=== PATIENT | female | born 1945 | race Caucasian/White ===

== ENCOUNTER → 2016-11-28 | Outpatient (CLI) | payer OTHER ==
[2016-11-28 12:16] LABS: BASO % 0.6 %; BASO ABS # 0.03 K/uL (0-0.2); COMPLETE YES; EOS % 3.5 %; HEMATOCRIT 38.8 % (37-47); IG% 0.2 %; LYMPH % 37.9 %; LYMPH ABS # 1.94 K/uL (1.2-3.4); MEAN CELL VOLUME 91.3 fL (80-100); MEAN CORPUSCULAR HGB CONC 35.1 g/dl (32-36); MEAN PLATELET VOLUME 11.1 fL (7.4-10.4); MONO % 4.9 %; NEUT % 52.9 %; PLATELET COUNT 116 K/uL (130-400); RED BLOOD COUNT 4.25 M/uL (4.2-5.4); WHITE BLOOD COUNT 5.12 K/uL (4.8-10.8)
[2016-11-28 12:26] LABS: ALT/SGPT 27 U/L (12-78); BLOOD UREA NITROGEN 10 mg/dl (7-18); BUN/CREATININE RATIO 14.2 (10-20); CALCIUM 8.2 mg/dl (8.5-10.1); CARBON DIOXIDE 27 mmol/L (21-32); CHLORIDE 106 mmol/L (98-107); CHOLESTEROL 181 mg/dl (0-200); CREATININE 0.73 mg/dl (0.60-1.20); GLUCOSE 208 mg/dl (70-99); POTASSIUM 3.8 mmol/L (3.5-5.1); SODIUM 141 mmol/L (136-145); TRIGLYCERIDES 170 mg/dl (0-150); VERY LOW DENSITY LIPOPROT CALC 34 mg/dl
[2016-11-28 12:35] LABS: ALB/GLOB RATIO 0.9 (0.9-2); ALKALINE PHOSPHATASE 88 U/L (45-117); AST/SGOT 24 U/L (15-37); CHOLESTEROL/HDL RATIO 4.2; FERRITIN 107.8 ng/ml (8.0-388.0); HDL CHOLESTEROL 43 mg/dl; LDL CHOLESTEROL CALCULATED 104 mg/dl
[2016-11-28 12:36] LABS: ESTIMATED AVERAGE GLUCOSE 212 mg/dl; HA1C FLAG Normal (Normal)
== END | disposition home or self-care (01) ==
LOC: C.LABPBG 10:11
PROVIDERS: ATTEND Family Medicine
DX: E03.9 Hypothyroidism, unspecified (principal); E11.9 Type 2 diabetes mellitus without complications; R53.83 Other fatigue; I10 Essential (primary) hypertension; E78.5 Hyperlipidemia, unspecified; R55 Syncope and collapse

== ENCOUNTER → 2017-04-01 | Outpatient (CLI) | payer OTHER ==
[2017-04-01 13:02] LABS: BLOOD UREA NITROGEN 11 mg/dl (7-18); BUN/CREATININE RATIO 12.7 (10-20); CALCIUM 8.9 mg/dl (8.5-10.1); CARBON DIOXIDE 28 mmol/L (21-32); CHLORIDE 104 mmol/L (98-107); CREATININE 0.85 mg/dl (0.60-1.20); GLUCOSE 240 mg/dl (70-99); POTASSIUM 3.8 mmol/L (3.5-5.1); SODIUM 140 mmol/L (136-145)
[2017-04-01 13:06] LABS: ALT/SGPT 36 U/L (12-78); CHOLESTEROL 121 mg/dl (0-200); CHOLESTEROL/HDL RATIO 2.4; HDL CHOLESTEROL 50 mg/dl; LDL CHOLESTEROL CALCULATED 50 mg/dl; TRIGLYCERIDES 107 mg/dl (0-150); VERY LOW DENSITY LIPOPROT CALC 21 mg/dl
[2017-04-01 13:32] LABS: RATIO 53.4 mcg/mg (0-30.0)
[2017-04-01 13:36] LABS: ESTIMATED AVERAGE GLUCOSE 214 mg/dl; HA1C FLAG Normal (Normal)
== END | disposition home or self-care (01) ==
LOC: C.LABPBG 08:37
PROVIDERS: ATTEND Family Medicine
DX: E11.9 Type 2 diabetes mellitus without complications (principal)

== ENCOUNTER → 2017-07-06 | Outpatient (CLI) | payer OTHER ==
[2017-07-06 12:35] LABS: ESTIMATED AVERAGE GLUCOSE 151 mg/dl; HA1C FLAG Normal (Normal)
[2017-07-06 12:52] LABS: ALT/SGPT 46 U/L (12-78); AST/SGOT 41 U/L (15-37); BLOOD UREA NITROGEN 17 mg/dl (7-18); BUN/CREATININE RATIO 24.1 (10-20); CALCIUM 8.7 mg/dl (8.5-10.1); CARBON DIOXIDE 26 mmol/L (21-32); CHLORIDE 107 mmol/L (98-107); CHOLESTEROL 123 mg/dl (0-200); CREATININE 0.71 mg/dl (0.60-1.20); GLUCOSE 116 mg/dl (70-99); POTASSIUM 3.8 mmol/L (3.5-5.1); SODIUM 142 mmol/L (136-145)
[2017-07-06 13:02] LABS: ALB/GLOB RATIO 0.9 (0.9-2); ALKALINE PHOSPHATASE 89 U/L (45-117); CHOLESTEROL/HDL RATIO 2.4; HDL CHOLESTEROL 52 mg/dl; LDL CHOLESTEROL CALCULATED 47 mg/dl; TRIGLYCERIDES 119 mg/dl (0-150); VERY LOW DENSITY LIPOPROT CALC 24 mg/dl
== END | disposition home or self-care (01) ==
LOC: C.LABPBG 08:36
PROVIDERS: ATTEND Family Medicine
DX: E11.9 Type 2 diabetes mellitus without complications (principal); E03.9 Hypothyroidism, unspecified

== ENCOUNTER → 2017-07-13 | Outpatient (CLI) | payer OTHER ==
[2017-07-13 13:32] LABS: MEAN CORPUSCULAR HGB CONC 33.6 g/dl (32-36)
[2017-07-13 13:33] LABS: HEMATOCRIT 39.3 % (37-47); MEAN CELL VOLUME 94.2 fL (80-100); MEAN CORPUSCULAR HEMOGLOBIN 31.7 pg (25-34); RED BLOOD COUNT 4.17 M/uL (4.2-5.4)
[2017-07-13 13:38] LABS: BASO % 0.6 %; BASO ABS # 0.04 K/uL (0-0.2); COMPLETE YES; EOS % 2.2 %; IG% 0.2 %; LYMPH % 31.4 %; LYMPH ABS # 2.01 K/uL (1.2-3.4); MEAN PLATELET VOLUME 12.2 fL (7.4-10.4); MONO % 5.3 %; NEUT % 60.3 %; PLATELET COUNT 112 K/uL (130-400); PLT ESTIMATE DECREASED
== END | disposition home or self-care (01) ==
LOC: C.LABPBG 09:35
PROVIDERS: ATTEND Family Medicine
DX: R53.83 Other fatigue (principal)

== ENCOUNTER → 2017-08-17 | Outpatient (CLI) | payer OTHER ==
[2017-08-17 18:07] LABS: HEMATOCRIT 38.7 % (37-47); MEAN CELL VOLUME 94.2 fL (80-100); MEAN CORPUSCULAR HEMOGLOBIN 32.1 pg (25-34); MEAN CORPUSCULAR HGB CONC 34.1 g/dl (32-36); PLATELET COUNT 119 K/uL (130-400); RED BLOOD COUNT 4.11 M/uL (4.2-5.4); WHITE BLOOD COUNT 6.29 K/uL (4.8-10.8)
[2017-08-17 18:11] LABS: BASO % 0.5 %; BASO ABS # 0.03 K/uL (0-0.2); COMPLETE YES; EOS % 2.4 %; IG% 0.2 %; LYMPH ABS # 1.95 K/uL (1.2-3.4); MONO % 6.8 %; NEUT % 59.1 %
== END | disposition home or self-care (01) ==
LOC: C.LABPBG 14:00
PROVIDERS: ATTEND Family Medicine
DX: D69.6 Thrombocytopenia, unspecified (principal)

== ENCOUNTER → 2018-01-08 | Outpatient (CLI) | payer OTHER ==
[2018-01-08 13:11] LABS: HEMOGLOBIN A1C 6.3 % (4.5-5.6)
[2018-01-08 13:50] LABS: ALBUMIN 3.6 gm/dl (3.4-5.0); ALT/SGPT 31 U/L (12-78); AST/SGOT 33 U/L (15-37); BLOOD UREA NITROGEN 16 mg/dl (7-18); CALCIUM 8.6 mg/dl (8.5-10.1); CARBON DIOXIDE 27 mmol/L (21-32); CHOLESTEROL 102 mg/dl (0-200); GLUCOSE 135 mg/dl (70-99); POTASSIUM 4.2 mmol/L (3.5-5.1); SODIUM 139 mmol/L (136-145)
[2018-01-08 14:00] LABS: ALKALINE PHOSPHATASE 76 U/L (45-117); LDL CHOLESTEROL CALCULATED 34 mg/dl; TOTAL PROTEIN 7.4 gm/dl (6.4-8.2)
== END | disposition home or self-care (01) ==
LOC: C.LABPBG 09:37
PROVIDERS: ATTEND Family Medicine
DX: E11.9 Type 2 diabetes mellitus without complications (principal)

== ENCOUNTER 2021-09-23 05:58 | Inpatient (IN) ==
[2021-09-23] MEDS ORDERED: fentaNYL citrate 100 MCG/2 ML VIAL IV STA (06:26)
[2021-09-23] MEDS ORDERED: SODIUM CHLORIDE 0.9% 1000ML 1,000 ML IV ONE (06:26)
--- NOTE | 2021-09-23 06:30 | Emergency Department Note ---
Impression & Plan Pleural effusion, Right lower lobe pneumonia, Abdominal pain, right upper quadrant, Acute right flank pain ED Provider Note Name: WALTER ORTA Age: 75 Sex: F Arrives Via: Walk-In Informant: Patient ED Provider: Thomas Tinajero MD Chief Complaint: Abdominal pain Impression: As Per impressions above Medical Decision Makin yr old pleasant female with extensive PMH with history of including copd, htn, dlp, dmii, breast CA arrives for acute worsening right sided abdominal pain. Clearly TTP over right flank and RUQ. Mildly decreased breath sounds bilaterall, right worse than left. Initial sats mid 90s on RA and patient given small narcotic with improvement in pain and only slight effect on O2 sats. With initial exam felt CT a/p indicated. THis revealed pleural effusion, thus CTA chest obtained. With loculated effusion and likely lobar infiltrate she was started on empiric abx. Suspect that pain is referred from effusion/infiltrate. No evidence ischemia to explain abdominal pain at this time. No large PE, nor clear evidence of other PE findings nor DVT findings at this time. She is quite comfortable with pain mediations and awake/alert. By exam not significantly fluid overloaded initially thus hydration given as double dye load fro CTs. Hospitalist consulted for further management given findings. Patient and comfortable with plan. Prior Medical Record and Triage/Nursing Notes reviewed by Me Additional history obtained from chart Differentials:Biliary pathology, renal colic, renal infection, diverticulitis, ischemia, aortic pathology, PE, dissection, pneumonia, acs, as well as other pathologies. Vital Signs: reviewed and remarkable for no significant abnormalities Interventions: As below Labs:Reviewed and remarkable for mild wbc elevation Imaging:See Below EKG:Per My Interpretation: Indication RUQ pain: Poor baseline with NSR 90 bpm RBBB, qtc 490. No Ectopy. No Ischemia. No previous for comparison Cardiac/Tele Monitoring: Cardiac Monitoring: An Order was placed for continuous cardiac monitoring. The monitor shows a rate of 90 with a normal sinus rhythm. Consults:Dr Nalini FRY Hosptialist Plan: Disposition:Hospitalization. Condition: Good History of Present Illness:75-year-old female arrives for right abdominal pain. Patient notes 3 days of gradually worsening right abdominal pain. Pain is primarily in the right upper quadrant radiating to her right flank and right lower quadrant. She also notes periodic episodes of right shoulder blade pain and sometimes pain under her right armpit. She notes pain is worse with movement. Nothing seems to make it better. She has taken some Tylenol without improvement. She denies any nausea nor vomiting. Patient denies any fevers, chills, shortness of breath, chest pain, syncope, back pain other than the right flank, urinary symptoms, leg swelling, rashes, bruising, headaches, nausea, vomiting or other symptoms. She denies any falls, trauma, injuries. She has n ever had pain like this before. She notes her gallbladder was previously removed. Patient on no new medications no recent changes to her medications. ROS: See above HPI for pertinent positives & negatives. A total of 10 systems reviewed and were otherwise negative. Past Medical History:Hearing loss, anxiety, asthma, COPD, depression, breast cancer, hyperlipidemia, hypertension Hypothyroid, osteoarthritis, type 2 diabetes Past Surgical History:Breast surgery, cholecystectomy, cataract surgery Family History:See Below Social History:See Below Home Medications:See Below Allergies:Sulfa Vitals:Blood Pressure: 122/56, Pulse 96, RR 18, T 37.0C, O2 92% on RA Physical Exam: GENERAL: Patient is very uncomfortable appearing and in moderate distress. EYES: No scleral icterus, unremarkable pupils. ENT: Mucous membranes moist, no nasal congestion. NECK: No masses appreciated, nomeningismus, trachea is midline. RESPIRATORY: No dyspnea mildly decreased breath sounds bilaterally, right worse than left. no overt wheeze CARDIOVASCULAR: Regular rate and rhythm.No murmurs, rubs, gallops appreciated. GASTROINTESTINAL: RUQ and RLQ TTP with hernia right abdomen appears reducible without bowel sounds in hernia, otherwise vague TTP left abdomen with somewhat hyperactive bowel sounds. BACK: No midline tenderness, Mild right CVA tenderness EXTREMITIES: Normal motion all extremities, no cyanosis, no edema. NEUROLOGIC: Quite hard of hearing. Alert and oriented, no acute motor or sensory deficits, no focal weakness, cranial nerves grossly intact. SKIN: No rash, no jaundice, no diaphoresis. PSYCH: Appropriate GCS: 15 ED Course: Times/Reassessments: Stable, feeling much improved with IV pain meds, agreeable to hospitalization Thomas Tinajero MD Past Med/Surg History Medical History (Updated 09/25/21 @ 09:03 by Thomas Tinajero MD) Anxiety ARDS (adult respiratory distress syndrome) Aspiration pneumonia Asthma COPD (chronic obstructive pulmonary disease) Depression Heartburn History of breast cancer History of stomach ulcers History of stroke Hyperlipidemia Hypothyroidism Osteoarthritis Pleural effusion T2DM (type 2 diabetes mellitus) Thrombocytopenia Vitamin D deficiency Surgical History Hx of breast surgery November 2011 S/P cataract surgery Right eye S/P cholecystectomy Family History Father Cardiac disorder Diabetes Myocardial infarction Hypertension Mother Cardiac disorder Diabetes Myocardial infarction Hypertension Brother Leukemia Hearing loss Hypertension Cancer Sister Hypertension Other Asthma No family history of bleeding disorder Denies family history of Ovarian cancer Prostate cancer Heart disease Breast cancer Colorectal cancer Stroke Social History Smoking Status: Smoker, status unknown packs per day: 0.5; Second Hand Exposure: Yes; Hx Alcohol Use: No Hx Substance Use: No Preferred Language: Kyrgyz Communication Ability: needs aids Visual Impairment: No Limitations Hearing Ability: Hard of Hearing Parks Recreation Director Required: No Beliefs That Will Affect Care: None marital status: Current Living Situation: Spouse current occupational status: retired Feels Safe at Home: Yes Safety Concerns: Feels Safe At This Time Childhood Exposure to Second-Hand Smoke: Yes caffeine: Yes during the past year weight has: remained stable Dental Care, Regularly: No Physical Activity Frequency: Does not Exercise Seatbelt Use: never Sunscreen Use: No (Does not go out in the sun) Assistive Devices: Walker Assistive Devices Comment: patient forgot bilateral hearing aids Allergies Allergies Allergy/AdvReac Type Severity Reaction Status Date / Time Sulfa (Sulfonamide AdvReac swelling Verified 01/08/21 15:14 Antibiotics) bee sting Allergy Hives Uncoded 09/23/21 12:04 Home Meds Home Medications Medication Instructions Recorded Confirmed cholecalciferol (vitamin D3) 0 mg PO DAILY 06/22/19 09/23/21 vitamin B complex 0 mg PO DAILY 06/22/19 09/23/21 Previous Rx's Medication Instructions Recorded albuterol sulfate 90 mcg/actuation See Rx Instructions INHALATION 09/28/20 aerosol inhaler (Ventolin HFA) .COMPLEX PRN #18 g levothyroxine 50 mcg tablet 50 mcg PO DAILY #90 tab 03/07/21 buspirone 15 mg tablet 15 mg PO BID 30 Days #180 tab 03/11/21 fluoxetine 40 mg capsule 40 mg PO DAILY #90 cap 06/04/21 lisinopril 2.5 mg tablet 2.5 mg PO DAILY #90 tab 06/04/21 dapagliflozin 10 mg tablet 10 mg PO DAILY #90 tab 06/05/21 glipizide 10 mg tablet 20 mg PO BID #180 tab 06/28/21 umeclidinium 62.5 mcg/actuation 1 inh INHALATION DAILY #30 ea 08/02/21 blister powder for inhalation (Incruse Ellipta) alprazolam 0.5 mg tablet 0.5 mg PO HS #30 tab 08/29/21 anastrozole 1 mg tablet 1 mg PO DAILY #90 tab 08/29/21 Results & Data (ED) Vital Signs Vital Signs - 24 hr 09/23/21 06:03 Temperature 37.0 C Temperature Source Oral Pulse Rate 96 H Respiratory Rate 18 Respiratory Depth Normal Blood Pressure 122/56 L Blood Pressure Mean 78 Pulse Oximetry 92 Oxygen Delivery Method Room Air Sepsis Recent Fever Within 48 Hours No Sepsis New/Unexplained Change in Mental Status N/A Sepsis Action Taken by Nursing No Action Required Laboratory Data Result diagrams: 09/25/21 05:06 09/25/21 05:06 Lab Results 09/23/21 09/23/21 09/23/21 Range/Units 06:45 06:45 06:55 WBC 16.31 H (4.8-10.8) K/uL RBC 3.86 L (4.2-5.4) M/uL Hgb 12.4 (12.0-16.0) g/dL POC Hgb 11.9 L (12.0-16.0) g/dl Hct 36.6 L (37-47) % POC Hct 35 L (37-47) % MCV 94.8 (80-100) fL MCH 32.1 (25-34) pg MCHC 33.9 (32-36) g/dL RDW Std Deviation 47.6 H (36.4-46.3) fL RDW Coeff of Vishal 13.9 (11.5-14.5) % Plt Count 195 (130-400) K/uL MPV 10.8 H (7.4-10.4) fL Immature Gran % (Auto) 0.4 % Neut % (Auto) 88.1 % Lymph % (Auto) 6.2 % Gulf % (Auto) 5.0 % Eos % (Auto) 0.2 % Baso % (Auto) 0.1 % Neut # (Auto) 14.38 H (1.4-6.5) K/uL Lymph # (Auto) 1.01 L (1.2-3.4) K/uL Gulf # (Auto) 0.82 H (0.11-0.59) K/uL Eos # (Auto) 0.03 (0-0.5) K/uL Baso # (Auto) 0.01 (0-0.2) K/uL Immature Gran # (Auto) 0.06 H (0.00-0.02) K/uL POC Sodium 138 (135-144) mmol/L Sodium 135 L (136-145) mmol/L POC Potassium 3.3 (3.3-5.0) mmol/L Potassium 3.3 L (3.5-5.1) mmol/L POC Chloride 101 (101-112) mmol/L Chloride 100 (98-107) mmol/L Carbon Dioxide 24 (21-32) mmol/L POC Total CO2 25 (24-31) mmol/L Anion Gap 11 (3-11) POC Anion Gap 16.0 (16-25) mmol/L POC BUN 11 (7-18) mg/dl BUN 13 (6-23) mg/dl Creatinine 0.81 (0.6-1.2) mg/dl POC Creatinine 0.7 (0.6-1.3) mg/dl Est Cr Clr Drug Dosing 56.2 ml/min Est GFR ( Amer) 81.2 ml/min Est GFR (Non-Af Amer) 70.1 ml/min BUN/Creatinine Ratio 16.0 (10-20) Glucose 320 H* (70-99(Fasting)) mg/dl POC Glucose (other) 335 H (70-99) mg/dl Calcium 8.0 L (8.5-10.1) mg/dl POC Ioniz Calcium Jan 1.09 L (1.12-1.32) mmol/l Total Bilirubin 1.7 H (0.2-1.0) mg/dl Direct Bilirubin 0.6 H (0-0.2) mg/dl AST 18 (13-39) U/L ALT 13 (7-52) U/L Alkaline Phosphatase 138 H (34-104) U/L Troponin I 0.03 (0-0.04) ng/ml Total Protein 7.2 (6.0-8.3) gm/dl Albumin 2.9 L (3.4-5.0) gm/dl Lipase 11 (11-82) U/L SARS-CoV-2, RNA, NAAT (NEGATIVE) 09/23/21 Range/Units 07:45 WBC (4.8-10.8) K/uL RBC (4.2-5.4) M/uL Hgb (12.0-16.0) g/dL POC Hgb (12.0-16.0) g/dl Hct (37-47) % POC Hct (37-47) % MCV (80-100) fL MCH (25-34) pg MCHC (32-36) g/dL RDW Std Deviation (36.4-46.3) fL RDW Coeff of Vishal (11.5-14.5) % Plt Count (130-400) K/uL MPV (7.4-10.4) fL Immature Gran % (Auto) % Neut % (Auto) % Lymph % (Auto) % Gulf % (Auto) % Eos % (Auto) % Baso % (Auto) % Neut # (Auto) (1.4-6.5) K/uL Lymph # (Auto) (1.2-3.4) K/uL Gulf # (Auto) (0.11-0.59) K/uL Eos # (Auto) (0-0.5) K/uL Baso # (Auto) (0-0.2) K/uL Immature Gran # (Auto) (0.00-0.02) K/uL POC Sodium (135-144) mmol/L Sodium (136-145) mmol/L POC Potassium (3.3-5.0) mmol/L Potassium (3.5-5.1) mmol/L POC Chloride (101-112) mmol/L Chloride (98-107) mmol/L Carbon Dioxide (21-32) mmol/L POC Total CO2 (24-31) mmol/L Anion Gap (3-11) POC Anion Gap (16-25) mmol/L POC BUN (7-18) mg/dl BUN (6-23) mg/dl Creatinine (0.6-1.2) mg/dl POC Creatinine (0.6-1.3) mg/dl Est Cr Clr Drug Dosing ml/min Est GFR ( Amer) ml/min Est GFR (Non-Af Amer) ml/min BUN/Creatinine Ratio (10-20) Glucose (70-99(Fasting)) mg/dl POC Glucose (other) (70-99) mg/dl Calcium (8.5-10.1) mg/dl POC Ioniz Calcium Jan (1.12-1.32) mmol/l Total Bilirubin (0.2-1.0) mg/dl Direct Bilirubin (0-0.2) mg/dl AST (13-39) U/L ALT (7-52) U/L Alkaline Phosphatase (34-104) U/L Troponin I (0-0.04) ng/ml Total Protein (6.0-8.3) gm/dl Albumin (3.4-5.0) gm/dl Lipase (11-82) U/L SARS-CoV-2, RNA, NAAT NEGATIVE (NEGATIVE) Administered Medications Acetaminophen (Acetaminophen 500 Mg Tab) 1,000 mg PO Q6H PRN PRN Reason: pain 1-02/07 Stop: 10/23/21 15:07 Last Admin: 09/24/21 08:03 Dose: 1,000 mg Documented by: [id number] Admin: 09/23/21 17:52 Dose: 1,000 mg Documented by: [id number] Fluoxetine HCl (Fluoxetine Hcl 20 Mg Cap) 40 mg PO DAILY [facility] Stop: 10/23/21 12:29 Last Admin: 09/24/21 07:58 Dose: 40 mg Documented by: [id number] Admin: 09/23/21 12:57 Dose: 40 mg Documented by: [id number] Heparin Sodium (Porcine) (Heparin Sod 5,000 Unit/0.5 Ml Vial) 5,000 units SQ Q12 [facility] Stop: 10/24/21 20:59 Last Admin: 09/24/21 21:36 Dose: Not Given Documented by: [id number] Piperacillin Sod/Tazobactam (Sod 3.375 gm/ Dextrose) 115 mls @ 28.75 mls/hr IV Q8H [facility]; Protocol Stop: 09/30/21 12:59 Last Admin: 09/25/21 04:58 Dose: 28.8 mls/hr Documented by: [id number] Infusion: 09/25/21 02:52 Dose: 0 mls/hr Documented by: [id number] Admin: 09/24/21 22:46 Dose: 28.8 mls/hr Documented by: [id number] Infusion: 09/24/21 17:40 Dose: 0 mls/hr Documented by: [id number] Admin: 09/24/21 13:14 Dose: 28.8 mls/hr Documented by: [id number] Infusion: 09/24/21 10:52 Dose: 0 mls/hr Documented by: [id number] Admin: 09/24/21 06:52 Dose: 28.8 mls/hr Documented by: [id number] Infusion: 09/24/21 01:42 Dose: 0 mls/hr Documented by: [id number] Admin: 09/23/21 21:18 Dose: 28.8 mls/hr Documented by: [id number] Infusion: 09/23/21 18:07 Dose: 0 mls/hr Documented by: [id number] Admin: 09/23/21 13:57 Dose: 28.8 mls/hr Documented by: [id number] Propofol (Diprivan) 1,000 mg in 100 mls @ 18.72 mls/hr IV .Q5H21M [facility]; Protocol Stop: 09/27/21 19:29 Last Titration: 09/25/21 07:56 Dose: 40 mcg/kg/min, 18.7 mls/hr Documented by: [id number] Titration: 09/25/21 07:07 Dose: 30 mcg/kg/min, 14 mls/hr Documented by: [id number] Cosigned by: [id number] Titration: 09/25/21 05:54 Dose: 30 mcg/kg/min, 14 mls/hr Documented by: [id number] Admin: 09/25/21 02:16 Dose: 20 mcg/kg/min, 9.4 mls/hr Documented by: [id number] Cosigned by: [id number] Titration: 09/25/21 02:16 Dose: 20 mcg/kg/min, 9.4 mls/hr Documented by: [id number] Cosigned by: [id number] Admin: 09/24/21 21:36 Dose: 20 mcg/kg/min, 9.4 mls/hr Documented by: [id number] Cosigned by: [id number] Norepinephrine Bitartrate (Levophed/D5w) 8 mg in 508 mls @ 0 mls/hr IV .Q0M [facility]; Protocol Stop: 10/24/21 23:29 Last Titration: 09/25/21 07:45 Dose: 0 mcg/kg/min, 0 mls/hr Documented by: [id number] Titration: 09/25/21 07:07 Dose: 0.05 mcg/kg/min, 14.9 mls/hr Documented by: [id number] Cosigned by: [id number] Titration: 09/25/21 06:42 Dose: 0.05 mcg/kg/min, 14.9 mls/hr Documented by: [id number] Titration: 09/25/21 05:54 Dose: 0.04 mcg/kg/min, 11.9 mls/hr Documented by: [id number] Titration: 09/25/21 02:53 Dose: 0.03 mcg/kg/min, 8.9 mls/hr Documented by: [id number] Titration: 09/25/21 02:30 Dose: 0.04 mcg/kg/min, 11.9 mls/hr Documented by: [id number] Admin: 09/24/21 23:38 Dose: 0.05 mcg/kg/min, 14.9 mls/hr Documented by: [id number] Cosigned by: [id number] Parenteral Electrolytes (Normosol-R) 1,000 mls @ 100 mls/hr IV .Q10H [facility] Stop: 10/25/21 00:59 Last Admin: 09/25/21 01:43 Dose: 100 mls/hr Documented by: [id number] Insulin Human Regular 250 (units/ Sodium Chloride) 250 mls @ 4.9 mls/hr IV .Q24H [facility]; Protocol Stop: 10/25/21 06:14 Last Titration: 09/25/21 08:55 Dose: 4.9 units/hr, 4.9 mls/hr Documented by: [id number] Cosigned by: [id number] Titration: 09/25/21 07:56 Dose: 4.1 units/hr, 4.1 mls/hr Documented by: [id number] Cosigned by: [id number] Titration: 09/25/21 07:07 Dose: 2.9 units/hr, 2.9 mls/hr Documented by: [id number] Cosigned by: [id number] Admin: 09/25/21 06:24 Dose: 2.9 units/hr, 2.9 mls/hr Documented by: [id number] Cosigned by: [id number] Insulin Aspart (Insulin Aspart Per Unit) 0 units SC ACHS [facility] Stop: 10/25/21 07:29 Last Admin: 09/25/21 08:05 Dose: Not Given Documented by: [id number] Levothyroxine Sodium (Levothyroxine Sodium 50 Mcg Tablet) 50 mcg PO DAILYBB [facility] Stop: 10/23/21 12:29 Last Admin: 09/25/21 04:58 Dose: Not Given Documented by: [id number] Admin: 09/24/21 07:57 Dose: 50 mcg Documented by: [id number] Admin: 09/23/21 12:57 Dose: 50 mcg Documented by: [id number] Lidocaine (Lidocaine 5% 1 Patch) 1 patch TD [facility] Stop: 10/24/21 18:55 Last Admin: 09/24/21 21:35 Dose: 1 patch Documented by: [id number] Miscellaneous (Remove Nicoderm Patch) 1 ea N/A DAILY@0859 [facility] Stop: 10/23/21 08:58 Last Admin: 09/24/21 08:00 Dose: 1 ea Documented by: [id number] Admin: 09/23/21 12:41 Dose: 1 ea Documented by: [id number] Morphine Sulfate (Morphine Sulfate 2 Mg/Ml Carp) 2 mg IV Q4 PRN PRN Reason: Pain Scale: 2,3,4,5,6 Stop: 10/07/21 15:07 Last Admin: 09/24/21 12:27 Dose: 2 mg Documented by: [id number] Morphine Sulfate (Morphine Sulfate 4 Mg/Ml 1 Ml Carp\Vial) 4 mg IV Q4 PRN PRN Reason: Pain Scale 7,8,9,10 Stop: 10/07/21 15:07 Last Admin: 09/24/21 05:25 Dose: 4 mg Documented by: [id number] Admin: 09/23/21 15:27 Dose: 4 mg Documented by: [id number] Nicotine (Nicotine 14 Mg/24 Hr Patch) 14 mg TD [facility] Stop: 10/23/21 08:59 Last Admin: 09/24/21 07:59 Dose: 14 mg Documented by: [id number] Admin: 09/23/21 12:41 Dose: 14 mg Documented by: [id number] Oxycodone HCl (Oxycodone Hcl Ir 5 Mg Tab (Immediate Release)) 10 mg PO Q6H PRN PRN Reason: Moderate Pain 4-6/10 Stop: 10/07/21 15:07 Last Admin: 09/24/21 10:18 Dose: 10 mg Documented by: [id number] Admin: 09/24/21 04:04 Dose: 10 mg Documented by: [id number] Admin: 09/23/21 21:25 Dose: 10 mg Documented by: [id number] Potassium Chloride (Potassium Chloride Crtab 20 Meq Tabcr) 20 meq PO BID [facility] Stop: 09/25/21 09:01 Last Admin: 09/25/21 08:41 Dose: Not Given Documented by: [id number] Admin: 09/24/21 23:01 Dose: Not Given Documented by: [id number] Admin: 09/24/21 08:03 Dose: 20 meq Documented by: [id number] Propofol (Propofol Bolus From Bag) 20 mg IV Q5M PRN PRN Reason: Sedation Stop: 09/27/21 19:29 Last Admin: 09/25/21 07:58 Dose: 20 mg Documented by: [id number] Cosigned by: [id number] Umeclidinium [place] (Umeclidinium [place] 62.5mcg/Blister 7 Puffs/Inhaler) 1 puffs INH DAILY [facility] Stop: 10/23/21 12:29 Last Admin: 09/24/21 07:58 Dose: 1 puffs Documented by: [id number] Admin: 09/23/21 12:57 Dose: 1 puffs Documented by: [id number] Discontinued Medications Albuterol (Albut/Ipratrop 3mg/0.5mg Neb 3 Ml Vial) 3 ml NEB NOW STA; Protocol Stop: 09/24/21 12:32 Last Admin: 09/24/21 14:31 Dose: 3 ml Documented by: [id number] Albuterol (Albut/Ipratrop 3mg/0.5mg Neb 3 Ml Vial) 3 ml NEB QIDR [facility]; Protocol Stop: 10/24/21 18:55 Last Admin: 09/25/21 04:53 Dose: Not Given Documented by: [id number] Admin: 09/24/21 20:48 Dose: Not Given Documented by: [id number] Alprazolam (Alprazolam 0.5 Mg Tablet) 0.5 mg PO HS [facility] Stop: 10/23/21 20:59 Last Admin: 09/23/21 21:15 Dose: 0.5 mg Documented by: [id number] Anastrozole (Anastrozole 1 Mg Tab) 1 mg PO DAILY [facility] Stop: 10/23/21 12:14 Last Admin: 09/24/21 07:58 Dose: 1 mg Documented by: [id number] Cosigned by: [id number] Admin: 09/23/21 12:57 Dose: 1 mg Documented by: [id number] Cosigned by: [id number] Buspirone HCl (Buspirone 15 Mg Tab) 15 mg PO BID [facility] Stop: 10/23/21 12:14 Last Admin: 09/24/21 07:58 Dose: 15 mg Documented by: [id number] Admin: 09/23/21 23:09 Dose: 15 mg Documented by: [id number] Admin: 09/23/21 12:57 Dose: 15 mg Documented by: [id number] Fentanyl Citrate (Fentanyl Citrate 100 Mcg/2 Ml Vial) 50 mcg IV NOW STA Stop: 09/23/21 06:27 Last Admin: 09/23/21 06:46 Dose: 50 mcg Documented by: [id number] Furosemide (Furosemide 40 Mg/4 Ml Vial) 40 mg IV ONE ONE Stop: 09/24/21 12:56 Last Admin: 09/24/21 13:13 Dose: 40 mg Documented by: [id number] Hydromorphone HCl (Hydromorphone Inj 0.5 Mg/0.5 Ml Syr) 0.5 mg IV NOW STA Stop: 09/23/21 07:23 Last Admin: 09/23/21 07:29 Dose: 0.5 mg Documented by: [id number] Sodium Chloride (Nss 1000ml) 1,000 mls @ 999 mls/hr IV .Q1H1M ONE Stop: 09/23/21 07:26 Last Infusion: 09/23/21 07:52 Dose: 0 mls/hr Documented by: [id number] Admin: 09/23/21 06:47 Dose: 999 mls/hr Documented by: [id number] Sodium Chloride (Nss 1000ml) 1,000 mls @ 125 mls/hr IV .Q8H [facility] Stop: 10/23/21 07:29 Last Infusion: 09/24/21 13:16 Dose: 0 mls/hr Documented by: [id number] Admin: 09/24/21 10:19 Dose: 125 mls/hr Documented by: [id number] Infusion: 09/24/21 10:19 Dose: 125 mls/hr Documented by: [id number] Admin: 09/24/21 02:45 Dose: 125 mls/hr Documented by: [id number] Infusion: 09/23/21 22:32 Dose: 125 mls/hr Documented by: [id number] Admin: 09/23/21 14:32 Dose: 125 mls/hr Documented by: [id number] Infusion: 09/23/21 14:32 Dose: 125 mls/hr Documented by: [id number] Admin: 09/23/21 07:52 Dose: 125 mls/hr Documented by: [id number] Piperacillin Sod/Tazobactam Sod (Zosyn) 4.5 gm in 120 mls @ 240 mls/hr IV NOW ONE Stop: 09/23/21 08:15 Last Infusion: 09/23/21 09:10 Dose: 0 mls/hr Documented by: [id number] Admin: 09/23/21 08:24 Dose: 240 mls/hr Documented by: [id number] Magnesium Sulfate/Dextrose (Magnesium Sulfate / D5w) 1 gm in 100 mls @ 50 mls/hr IV ONE ONE Stop: 09/24/21 09:59 Last Infusion: 09/24/21 10:43 Dose: 0 mls/hr Documented by: [id number] Infusion: 09/24/21 09:04 Dose: 50 mls/hr Documented by: [id number] Infusion: 09/24/21 08:25 Dose: 0 mls/hr Documented by: [id number] Admin: 09/24/21 08:00 Dose: 50 mls/hr Documented by: [id number] Potassium Chloride (K Robert / Wtr) 20 meq in 100 mls @ 50 mls/hr IV Q2H [facility]; Protocol Stop: 09/25/21 04:14 Last Infusion: 09/25/21 04:20 Dose: 0 mls/hr Documented by: [id number] Admin: 09/25/21 02:16 Dose: 50 mls/hr Documented by: [id number] Infusion: 09/25/21 02:16 Dose: 50 mls/hr Documented by: [id number] Admin: 09/25/21 00:18 Dose: 50 mls/hr Documented by: [id number] Infusion: 09/25/21 00:18 Dose: 50 mls/hr Documented by: [id number] Admin: 09/24/21 23:02 Dose: 50 mls/hr Documented by: [id number] Insulin Aspart (Insulin Aspart Per Unit) 0 units SC ACHS [facility] Stop: 10/23/21 11:29 Last Admin: 09/24/21 23:08 Dose: 7 units Documented by: [id number] Cosigned by: [id number] Admin: 09/24/21 17:47 Dose: 5 units Documented by: [id number] Cosigned by: [id number] Admin: 09/24/21 12:30 Dose: 7 units Documented by: [id number] Cosigned by: [id number] Admin: 09/24/21 08:07 Dose: 5 units Documented by: [id number] Cosigned by: [id number] Admin: 09/23/21 21:18 Dose: 7 units Documented by: [id number] Cosigned by: [id number] Admin: 09/23/21 18:15 Dose: Not Given Documented by: [id number] Admin: 09/23/21 14:03 Dose: 11 units Documented by: [id number] Cosigned by: [id number] Insulin Human Regular (Novolin-R Bolus From Bag) 3 units IV ONE ONE Stop: 09/25/21 06:16 Last Admin: 09/25/21 06:25 Dose: 3 units Documented by: [id number] Cosigned by: [id number] Ioversol (Optiray 320 100ml) 94 ml IV ONCE ONE Stop: 09/23/21 07:14 Last Admin: 09/23/21 07:14 Dose: 94 ml Documented by: [id number] Ioversol (Optiray 320 125ml) 106 ml IV ONCE ONE Stop: 09/23/21 07:39 Last Admin: 09/23/21 07:38 Dose: 106 ml Documented by: [id number] Miscellaneous (Dapagliflozin 10mg-Order Awaiting Action) 1 ea N/A QS [facility] Stop: 10/23/21 15:59 Last Admin: 09/24/21 16:19 Dose: Not Given Documented by: [id number] Admin: 09/24/21 08:00 Dose: Not Given Documented by: [id number] Admin: 09/24/21 00:55 Dose: Not Given Documented by: [id number] Admin: 09/23/21 17:52 Dose: Not Given Documented by: [id number] Propofol (Propofol Iv Emulsion 10 Mg/Ml 100 Ml Vial) Confirm Administered Dose 1,000 mg IV .[employer] ONE Stop: 09/24/21 19:32 Last Admin: 09/24/21 21:36 Dose: Not Given Documented by: [id number] Rosuvastatin Calcium (Rosuvastatin Calcium 10 Mg Tab) 10 mg PO DAILY [facility] Stop: 10/23/21 12:29 Last Admin: 09/24/21 07:58 Dose: 10 mg Documented by: [id number] Admin: 09/23/21 12:57 Dose: 10 mg Documented by: [id number] Vecuronium [place] (Vecuronium [place] 10 Mg Vial) Confirm Administered Dose 10 mg IV .[employer] ONE Stop: 09/24/21 20:54 Last Admin: 09/24/21 21:37 Dose: 10 mg Documented by: [id number] Cosigned by: [id number] Discharge Plan Visit Data Chief Complaint: Flank Pain Stated Complaint: PAIN UP RIGHT SIDE UNDER ARM ED Provider: Thomas Tinajero Discharge Problem: Pleural effusion, Right lower lobe pneumonia, Abdominal pain, right upper quadrant, Acute right flank pain Patient Disposition: Admitted As Inpatient Discharge Instructions Interventions: ED Discharge Assessment Last Done: 09/23/21 11:41 Discharge Problem: Right lower lobe pneumonia Qualifiers: Pneumonia type: due to unspecified organism Qualified Code(s): J18.9 - Pneumonia, unspecified organism
[2021-09-23 07:07] LABS: Basophils # (auto) 0.01 K/uL (0-0.2); Basophils % (auto) 0.1 %; Eosinophils # (auto) 0.03 K/uL (0-0.5); Eosinophils % (auto) 0.2 %; Hematocrit (blood only) 36.6 % (37-47); Hemoglobin 12.4 g/dL (12.0-16.0); Immature Granulocytes # (auto) 0.06 K/uL (0.00-0.02); Immature Granulocytes % (auto) 0.4 %; Lymphocytes # (auto) 1.01 K/uL (1.2-3.4); Lymphocytes % (auto) 6.2 %; Mean Corpuscular Hemoglobin 32.1 pg (25-34); Mean Corpuscular Hgb Conc 33.9 g/dL (32-36); Mean Corpuscular Volume 94.8 fL (80-100); Mean Platelet Volume 10.8 fL (7.4-10.4); Monocytes # (auto) 0.82 K/uL (0.11-0.59); Neutrophils # (auto) 14.38 K/uL (1.4-6.5); Neutrophils % (auto) 88.1 %; Platelet Count 195 K/uL (130-400); RDW Coefficient of Variation 13.9 % (11.5-14.5); RDW Standard Deviation 47.6 fL (36.4-46.3); Red Blood Count 3.86 M/uL (4.2-5.4); White Blood Count 16.31 K/uL (4.8-10.8)
[2021-09-23 07:09] LABS: iSTAT Creatinine 0.7 mg/dl (0.6-1.3); iSTAT Hemoglobin 11.9 g/dl (12.0-16.0); iSTAT Ionized Calcium 1.09 mmol/l (1.12-1.32); iSTAT Potassium 3.3 mmol/L (3.3-5.0)
[2021-09-23] MEDS ORDERED: OPTIRAY 320 100ml IV ONE (07:13)
[2021-09-23] MEDS ORDERED: HYDROmorphone INJ 0.5 MG/0.5 ML SYR IV STA (07:22)
[2021-09-23] MEDS ORDERED: OPTIRAY 320 125ml IV ONE (07:38)
[2021-09-23] MEDS ORDERED: PIPERACILLIN/TAZOBACTAM 4.5 GM/120 ML BAG IV ONE (07:46)
[2021-09-23] MEDS ORDERED: PIPERACILL/TAZOBAC CONSULT ACTIVE PRN (07:46)
--- NOTE | 2021-09-23 07:47 | CT Scan Report ---
ABDOMEN AND PELVIS CT WITH IV CONTRAST CT DOSE: 757.45 mGy.cm HISTORY: Acute right flank and right upper quadrant abdominal pain Right flank pain RUQ pain TECHNIQUE: Multiaxial CT images of the abdomen and pelvis were performed following the IV administrat ion of 94 cc of Optiray, A dose lowering technique was utilized adhering to the principles of ALARA. COMPARISON STUDY: CTA of the chest of same day FINDINGS: Motion degraded exam. Coronary arterial with aortic and mitral annular calcifications. Mild ly loculated partially imaged right pleural effusion with right basilar consolidative and groundglass opacities. The left lung base is generally clear. No pneumatosis or pneumoperitoneum. The spleen is moderately enlarged measuring up to 15.3 cm in length. Trace perisplenic and dependent pelvic ascites. Cirrhotic morphology of the liver. No hepatic mass identified. Patent portal vein. Ab dominal pelvic varices. Cholecystectomy. Unremarkable kidneys. There is no hydronephrosis. Urinary bl adder, uterus and adnexa are within normal limits. Atherosclerosis of the aorta without aneurysm. Mil d infrarenal ectasia aorta measures 2.2 cm. There is no adenopathy. There is no bowel obstruction. There are a few fluid-filled loops of small bowel within the abdomen a nd pelvis measuring up to 2.7 cm which are favored to be physiologic. Colonic diverticulosis without acute diverticulitis. There is mild circumferential wall thickening of the mid descending colon. Trac e fluid within the right paracolic gutter. There are large fat filled hernias involving the right mid abdominal wall with diastases measuring up to 5 cm. Mild associated inflammatory stranding. Degenera tive changes of the spine, pelvis and hips. No acute fracture or suspicious bone lesion. IMPRESSION: 1. Cirrhotic liver disease with stigmata of portal venous hypertension including splenomegaly with tr katia abdominal pelvic ascites and abdominal pelvic varices. 2. Mild wall thickening of the descending colon with trace fluid within the right paracolic gutter. F indings may be secondary to portal colopathy versus a nonspecific colitis. 3. Large right-sided abdominal wall fat filled hernias. 4. Right pleural effusion with right basilar consolidation. Please refer to the CTA chest study of for additional findings. ACT 112: Negative or not required by law. The above report was generated using voice recognition software. It may contain grammatical, syntax o r spelling errors. Electronically signed by: Carlos Lacey M.D. 09/23/2021 7:46 AM
[2021-09-23] MEDS: SODIUM CHLORIDE 0.9% 1000ML 1,000 ML IV SCH ×2 (07:52→14:32)
--- NOTE | 2021-09-23 07:58 | CT Scan Report ---
CT ANGIOGRAM OF THE CHEST CLINICAL HISTORY: Atypical chest pain. COMPARISON STUDY: No priors. TECHNIQUE: Following the IV administration of 106 cc of Optiray 320, CT angiogram of the chest was pe rformed from the upper abdomen to the thoracic inlet utilizing the pulmonary embolus protocol. Images are reviewed in the axial, sagittal, and coronal planes. 3-D MIPS images are created and assessed. I V contrast was administered without complication. A dose lowering technique was utilized adhering to the principles of ALARA. The examination is degraded by motion artifact, as well as streak artifact from the arms which could not be elevated above the chest. CT DOSE: 482.66 mGy.cm FINDINGS: Thyroid: Imaged portions of the thyroid gland are normal in size and attenuation. Thoracic aorta: There is atherosclerotic calcification of the thoracic aorta, which is normal in carlita shahla and demonstrates standard 3-vessel arch anatomy. No dissection is seen. Pulmonary vasculature: The pulmonary trunk is dilated, measuring 3.4 cm in diameter. This suggests pu lmonary artery hypertension. There are no filling defects identified in main or lobar pulmonary branc hes to suggest pulmonary embolus. The segmental and subsegmental branches are not well evaluated due to significant streak and motion artifact. Heart: The heart is enlarged and without pericardial effusion. The mitral annulus and aortic valve le aflets are calcified. Lungs and pleural spaces: Evaluation of the lung parenchyma is compromised by motion artifact. The tr achea and central airways are clear. Emphysematous change is noted. There is a small to moderate locu lated pleural effusion at the right lung base, with fluid tracking along the major fissure. There is associated right basilar airspace consolidation. The left lung appears clear noting basilar scarring/ atelectasis. Mediastinum: There are mildly enlarged mediastinal nodes which measure up to 15 mm in short axis. Rachel: Enlarged right hilar nodes measure up to 14 mm in short axis. Axillae: There is no axillary lymphadenopathy. Upper abdomen: The liver is cirrhotic in morphology and heterogeneous in attenuation. The spleen is e nlarged. A small hiatal hernia is noted. Esophageal varices are observed. There is trace perisplenic ascites. Skeletal structures: The skeletal structures are osteopenic. Degenerative change and hyperkyphosis is noted in the thoracic spine. No lytic or blastic bony lesions are seen. IMPRESSION: 1. Severely streak and motion compromised examination. 2. There is no evidence of central pulmonary embolus in the main or lobar pulmonary arteries. The seg mental and subsegmental vessels are not well evaluated due to streak and motion artifact. 3. Cardiomegaly and emphysema. 4. There is a small to moderate loculated pleural effusion at the right lung base as above with right basilar consolidation. Correlate clinically for evidence of pneumonia/aspiration pneumonitis. Radiog raphic follow-up to resolution is recommended. 5. Mildly enlarged mediastinal and right hilar nodes are likely reactive. 6. Cirrhotic liver morphology and splenomegaly. 7. Additional findings as above. ACT 112: Negative or not required by law. Electronically signed by: Federico Ruiz M.D. 09/23/2021 7:57 AM
[2021-09-23 08:26] LABS: Albumin Level 2.9 gm/dl (3.4-5.0); Bilirubin Direct 0.6 mg/dl (0-0.2); Bilirubin,Total 1.7 mg/dl (0.2-1.0); Creatinine Clr Calc Pharmacy 56.2 ml/min; Est GFR (African American) 81.2 ml/min; Est GFR (Non-African American) 70.1 ml/min; Potassium 3.3 mmol/L (3.5-5.1); Total Protein 7.2 gm/dl (6.0-8.3); Troponin I 0.03 ng/ml (0-0.04)
[2021-09-23 09:35] LABS: Appearance Urine Clear (Clear); Bilirubin Urine Negative (Negative); Blood Urine Negative (Negative); Color Urine Yellow; Glucose Urine UA 3+ (Negative); Ketones Urine Trace (Negative); Leukocyte Esterase Urine Negative (Negative); Nitrite Urine Negative (Negative); Protein Urine Negative (Negative); Specific Gravity Urine > 1.045 (1.000-1.030); Urobilinogen Urine Negative (Negative)
--- NOTE | 2021-09-23 09:52 | Electrocardiogram Report ---
Test Reason : Blood Pressure : / mmHG Vent. Rate : 090 BPM Atrial Rate : 061 BPM P-R Int : 000 ms QRS Dur : 112 ms QT Int : 400 ms P-R-T Axes : 000 -05 071 degrees QTc Int : 490 ms Poor data quality, interpretation may be adversely affected Normal sinus rhythm Incomplete right bundle branch block Prolonged QT Abnormal ECG No previous ECGs available Confirmed by Sid Mcfarlane ([id number]) on 09/23/2021 9:51:54 AM Referred By: REFERRED SELF Confirmed By:Richard Mcfarlane
[2021-09-23] MEDS ORDERED: GLUCOSE 10 TABS/TUBE PO PRN (11:48)
[2021-09-23] MEDS ORDERED: GLUCOSE 40% GEL 15 GM TUBE PO PRN (11:48)
[2021-09-23] MEDS ORDERED: DEXTROSE 50% 50 ML SYRINGE IV PRN (11:48)
[2021-09-23] MEDS ORDERED: CARBOHYDRATES FOR HYPOGLYCEMIA PO PRN (11:48)
[2021-09-23] MEDS ORDERED: ALBUTEROL HFA 8 GM INHALER INH PRN (11:48)
[2021-09-23] MEDS ORDERED: GLUCAGON FOR INJ 1 MG VIAL SQ PRN (11:48)
[2021-09-23] MEDS: NICOTINE 14 MG/24 HR PATCH TD SCH (12:41)
[2021-09-23] MEDS: busPIRone 15 MG TAB PO SCH ×2 (12:57→23:09)
[2021-09-23] MEDS: FLUoxetine HCL 20 MG CAP PO SCH (12:57)
[2021-09-23] MEDS: UMECLIDINIUM BROMIDE 62.5MCG/BLISTER 7 PUFFS/INHALER INH SCH (12:57)
[2021-09-23] MEDS: LEVOTHYROXINE SODIUM 50 MCG TABLET PO SCH (12:57)
[2021-09-23] MEDS: ANASTROZOLE 1 MG TAB PO SCH (12:57)
[2021-09-23] MEDS: ROSUVASTATIN CALCIUM 10 MG TAB PO SCH (12:57)
[2021-09-23] MEDS: PIPERACILLIN/TAZOBACTAM 3.375 GM in DEXTROSE 5% 100 ML IV SCH ×2 (13:57→21:18)
[2021-09-23] MEDS: INSULIN ASPART PER UNIT SC SCH ×3 (14:03→21:18)
[2021-09-23] MEDS ORDERED: MoRPHine SULFATE 2 MG/ML CARP IV PRN (15:08)
--- NOTE | 2021-09-23 15:19 | History & Physical Report ---
Date of Service September 23, 2021 Assessment & Plan (1) Pneumonia: Plan: Get pneumonia with loculated pleural effusion at the right base consistent possibly with aspiration on your gram-negative pneumonia patient be continued on Zosyn therapy. If the patient does not improve consideration for pulmonary consultation although with the loculations and position of the effusion may be difficult to access for fluid. (2) COPD (chronic obstructive pulmonary disease): Plan: Medically acute exacerbation is at this time not using steroids at this time will continue home inhalers of Umeclidinium (3) Depression: Plan: Continue BuSpar fluoxetine which seems stable (4) History of breast cancer: Plan: History of bilateral mastectomy in 2011 certainly raises concern with this loculated effusion, continue anastrozole (5) Hypothyroidism: Plan: Continue Synthroid therapy (6) T2DM (type 2 diabetes mellitus): Plan: Hold Farxiga glipizide check hemoglobin A1c have insulin sliding scale we will not add glargine unless we need to holding lisinopril at this time (7) DVT prophylaxis: Plan: Lovenox for DVT prevention Admission and Anticipated Discharge Date Admission Date: September 23, 2021 History of Present Illness Primary Care Provider: Jimena Rosales DO 75-year-old female who is extremely hard of hearing presented to the emergency room with right upper quadrant abdominal pain. Poorly 3 days prodromal illness occasionally rating to her shoulder and armpit worse with movement and in spiration denies associated symptoms. Emergency department physician did CT scan abdomen pelvis which showed cirrhotic liver portal vein hypertension trace ascites and splenomegaly. Large right-sided abdominal wall fat filled hernia but concern for right basilar lung issues. CT angiogram was subsequently performed which showed no PE small to moderate loculated pleural effusion in the right lung base with basilar consolidation consideration for aspiration pneumonia Patient was having pleuritic pain with ice entered the room this is relieved with parenteral pain medication she is admitted for antibiotic therapy. Covid test is negative Allergies Allergy/AdvReac Type Severity Reaction Status Date / Time Sulfa (Sulfonamide AdvReac swelling Verified 01/08/21 15:14 Antibiotics) bee sting Allergy Hives Uncoded 09/23/21 12:04 Home Medications Medication Instructions Recorded Confirmed Type cholecalciferol (vitamin D3) 0 mg PO DAILY 06/22/19 09/23/21 History vitamin B complex 0 mg PO DAILY 06/22/19 09/23/21 History albuterol sulfate 90 mcg/actuation See Rx Instructions INHALATION 09/28/20 09/23/21 Rx aerosol inhaler (Ventolin HFA) .COMPLEX PRN #18 g levothyroxine 50 mcg tablet 50 mcg PO DAILY #90 tab 03/07/21 09/23/21 Rx buspirone 15 mg tablet 15 mg PO BID 30 Days #180 tab 03/11/21 09/23/21 Rx fluoxetine 40 mg capsule 40 mg PO DAILY #90 cap 06/04/21 09/23/21 Rx lisinopril 2.5 mg tablet 2.5 mg PO DAILY #90 tab 06/04/21 09/23/21 Rx dapagliflozin 10 mg tablet 10 mg PO DAILY #90 tab 06/05/21 09/23/21 Rx glipizide 10 mg tablet 20 mg PO BID #180 tab 06/28/21 09/23/21 Rx umeclidinium 62.5 mcg/actuation 1 inh INHALATION DAILY #30 ea 08/02/21 09/23/21 Rx blister powder for inhalation (Incruse Ellipta) alprazolam 0.5 mg tablet 0.5 mg PO HS #30 tab 08/29/21 09/23/21 Rx anastrozole 1 mg tablet 1 mg PO DAILY #90 tab 08/29/21 09/23/21 Rx Past Med/Surg History Medical History (Updated 09/23/21 @ 15:25 by Riley Gayle MD) Anxiety Asthma COPD (chronic obstructive pulmonary disease) Depression Heartburn History of breast cancer History of stomach ulcers History of stroke Hyperlipidemia Hypothyroidism Osteoarthritis T2DM (type 2 diabetes mellitus) Thrombocytopenia Vitamin D deficiency Surgical History Hx of breast surgery November 2011 S/P cataract surgery Right eye S/P cholecystectomy Family History Father Cardiac disorder Diabetes Myocardial infarction Hypertension Mother Cardiac disorder Diabetes Myocardial infarction Hypertension Brother Leukemia Hearing loss Hypertension Cancer Sister Hypertension Other Asthma No family history of bleeding disorder Denies family history of Ovarian cancer Prostate cancer Heart disease Breast cancer Colorectal cancer Stroke Social History Smoking Status: Smoker, status unknown packs per day: 0.5; Second Hand Exposure: Yes; Hx Alcohol Use: No Hx Substance Use: No Preferred Language: Bahamian Communication Ability: needs aids Visual Impairment: No Limitations Hearing Ability: Hard of Hearing Rn Intern Required: No Beliefs That Will Affect Care: None marital status: Current Living Situation: Spouse current occupational status: retired Feels Safe at Home: Yes Safety Concerns: Feels Safe At This Time Childhood Exposure to Second-Hand Smoke: Yes caffeine: Yes during the past year weight has: remained stable Dental Care, Regularly: No Physical Activity Frequency: Does not Exercise Seatbelt Use: never Sunscreen Use: No (Does not go out in the sun) Assistive Devices: Hearing Aid - Bilateral Assistive Devices Comment: patient forgot bilateral hearing aids Review of Systems Review of Systems: Mild to Moderate distress and fatigue no headache, no visual changes no speech or swallowing issues pleuritic chest pain, no pressure or palpitations no shortness of breath, non productive cough or wheezes right sided reproducible abdominal pain, nausea or vomiting, diarrhea or constipation no dysuria, hematuria or frequency no focal joint pain or swelling no back pain, CVA tenderness or radicular pain no bruising, bleeding or rashes no focal signs of weakness or numbness or altered sensation except for extreme hard of hearing no complaints of anxiety or depression.. Physical Exam Physical Exam: The patient appeared well nourished and normally developed. Vital signs as documented. Head exam is normocephalic atraumatic Neck is without JVD, thyromegaly, or carotid bruits. Lungs are diminished to the right base Cardiac exam, Rhythm is regular.. No murmurs, rubs or gallops. Abdominal exam reveals normal bowel sounds, soft non hernia that is reproducible Extremities are nonedematous and both pedal pulses are present Neurologic exam is alert and oriented, no focal loss of strength or sensation very hard of hearing Skin is without bruises or rashes Psychologically is without concerns for anxiety or depression.. Results & Data Results & [facility] ([facility]) Vital Signs (Past 12 Hours) Vital Signs Temp Pulse Pulse Resp BP BP Pulse Ox 09/23/21 12:33 84 16 96 09/23/21 12:21 82 16 135/86 96 09/23/21 11:41 107 H 17 100 09/23/21 09:00 90 24 104/41 L 90 09/23/21 07:55 89 20 152/75 H 95 09/23/21 06:45 88 93 09/23/21 06:03 98.6 F 96 H 18 122/56 L 92 Code Status & VTE Plan VTE Prophylaxis Plan VTE Prophylaxis will be ordered: Yes PG Care Time/CCT Total # of Minutes Spent Total Time Spent with Patient: Total time spent is greater than 50% in coordination of care (as documented) at patient's floor/unit and/or counseling patient: Coding Level of Care Code 08858 Initial Inpt Care Lvl 2 Diagnoses COPD (chronic obstructive pulmonary disease) J44.9 Depression F32.9 History of breast cancer Z85.3 Hypothyroidism E03.9 T2DM (type 2 diabetes mellitus) E11.9 Pneumonia J18.9 DVT prophylaxis Z29.9
[2021-09-23] MEDS ORDERED: ONDANSETRON INJ 2 MG/ML 2 ML VIAL IV PRN (15:26)
[2021-09-23] MEDS ORDERED: ALUMINUM/MAGNESIUM SUSP 30 ML UDC PO PRN (15:26)
[2021-09-23] MEDS: MoRPHine SULFATE 4 MG/ML 1 ML CARP\\VIAL IV PRN (15:27)
[2021-09-23] MEDS ORDERED: SODIUM CHLORIDE 0.9% 10ML FLUSH IV ONE (16:57)
[2021-09-23] MEDS: ACETAMINOPHEN 500 MG TAB PO PRN (17:52)
[2021-09-23] MEDS ORDERED: PNEUMOCOCCAL Polysaccharide Vaccine 25mcg/0.5mL vial/Syr IM ONE (20:15)
[2021-09-23] MEDS ORDERED: Flu Vaccine-High Dose (Fluzone-HD) PF 65+ 0.7mL SYR IM ONE (20:15)
[2021-09-23] MEDS ORDERED: ALPRAZolam 0.5 MG TABLET PO SCH (21:00)
[2021-09-23] MEDS: oxyCODONE HCL IR 5 MG TAB (IMMEDIATE RELEASE) PO PRN (21:25)
[2021-09-24] MEDS: SODIUM CHLORIDE 0.9% 1000ML 1,000 ML IV SCH ×2 (02:45→10:19)
[2021-09-24] MEDS: oxyCODONE HCL IR 5 MG TAB (IMMEDIATE RELEASE) PO PRN ×2 (04:04→10:18)
[2021-09-24] MEDS: MoRPHine SULFATE 4 MG/ML 1 ML CARP\\VIAL IV PRN (05:25)
[2021-09-24 06:29] LABS: BUN Creatinine Ratio 29.7 (10-20); Calcium 7.7 mg/dl (8.5-10.1); Creatinine Clr Calc Pharmacy 71.2 ml/min; Est GFR (African American) 99.8 ml/min; Est GFR (Non-African American) 86.1 ml/min; Potassium 3.3 mmol/L (3.5-5.1)
[2021-09-24] MEDS: PIPERACILLIN/TAZOBACTAM 3.375 GM in DEXTROSE 5% 100 ML IV SCH ×3 (06:52→22:46)
[2021-09-24 07:49] LABS: Estimated Average Glucose 232 mg/dl; Hemoglobin A1C 9.7 % (4.5-5.6)
[2021-09-24] MEDS: LEVOTHYROXINE SODIUM 50 MCG TABLET PO SCH (07:57)
[2021-09-24] MEDS: busPIRone 15 MG TAB PO SCH (07:58)
[2021-09-24] MEDS: UMECLIDINIUM BROMIDE 62.5MCG/BLISTER 7 PUFFS/INHALER INH SCH (07:58)
[2021-09-24] MEDS: FLUoxetine HCL 20 MG CAP PO SCH (07:58)
[2021-09-24] MEDS: ANASTROZOLE 1 MG TAB PO SCH (07:58)
[2021-09-24] MEDS: ROSUVASTATIN CALCIUM 10 MG TAB PO SCH (07:58)
[2021-09-24] MEDS: NICOTINE 14 MG/24 HR PATCH TD SCH (07:59)
[2021-09-24] MEDS ORDERED: MAGNESIUM SULFATE / D5W 1 GM/100 ML BAG IV ONE (08:00)
[2021-09-24] MEDS: POTASSIUM CHLORIDE CRTAB 20 MEQ TABCR PO SCH ×2 (08:03→23:01)
[2021-09-24] MEDS: ACETAMINOPHEN 500 MG TAB PO PRN (08:03)
[2021-09-24] MEDS: INSULIN ASPART PER UNIT SC SCH ×4 (08:07→23:08)
[2021-09-24] MEDS ORDERED: ALBUT/IPRATROP 3MG/0.5MG NEB 3 ML VIAL NEB STA (12:31)
--- NOTE | 2021-09-24 12:53 | XRay Report ---
XR chest 1V portable CLINICAL HISTORY: Worsening shortness of breath. COMPARISON STUDY: Chest CT September 23, 2021. FINDINGS: Right axillary surgical clips are noted. There is no pneumothorax. A moderate right pleural effusion, likely loculated, has increased in size since prior exam. Airspace opacities, more pronoun catarina within the right lung, have progressed. Cardiomediastinal silhouette is stable. IMPRESSION: 1. Progression of extensive bilateral airspace opacities, greater within the right lung. The findings favor pneumonia. Pulmonary edema could appear similar although is considered less likely. 2. Increase in size of a moderate right pleural effusion, likely loculated. ACT 112: Negative or not required by law. Electronically signed by: Tremaine See M.D. 09/24/2021 12:51 PM
[2021-09-24] MEDS ORDERED: FUROSEMIDE 40 MG/4 ML VIAL IV ONE (12:55)
[2021-09-24 13:15] LABS: Base Excess ABG -4.7 mEq/L (-9-1.8); HCO3 ABG 22 mmol/L (19-24); Oxygen Saturation ABG 91.1 % (90-95); PCO2 ABG 45 mmHg (35-46); PO2 ABG 60 mmHg (80-95)
[2021-09-24 13:21] LABS: Allen Test Pos (Pos)
--- NOTE | 2021-09-24 17:11 | Hospitalist Progress Note ---
Date of Service September 24, 2021 Assessment & Plan (1) Cardiac arrest: Plan: Poorly patient had a period of asystole. She has been battling with hypoxia all afternoon with attempts at diuresis to improve her oxygenation. BG checked in the afternoon did not show any significant CO2 retention however the exact cause of her having asystole and apnea is yet to be determined. Patient does have a large pleural effusion and complex infiltrate at the right base she is transferred to the ICU with intubation ventilation sedation she does have regained sinus rhythm which is tachycardic and blood pressure. (2) Pneumonia: Plan: Right lower lobe pneumonia with loculated pleural effusion at the right base consistent possibly with aspiration or gram-negative pneumonia patient be continued on Zosyn therapy. If the patient does not improve consideration for pulmonary consultation although with the loculations and position of the effusion may be difficult to access for fluid. (3) Person under investigation for COVID-19: Plan: was notified by nursing staff that pts roommate tested positive for COVID, will have isolation as PUI, will inform (4) Heart failure: Plan: pt developed acute hypoxic respiratory failure, sounds to he heart failure and has 4 L + given lasix and will check Echo, stopped IVF will give additional lasix before night and apply Cpap echocardiogram ordered and pending (5) COPD (chronic obstructive pulmonary disease): Plan: Medically treat acute exacerbation is at this time not using steroids at this time will continue home inhalers of Umeclidinium but add duo nebs to her mix (6) Depression: Plan: Continue BuSpar fluoxetine which seems stable (7) History of breast cancer: Plan: History of bilateral mastectomy in 2011 certainly raises concern with this loculated effusion, continue anastrozole (8) Hypothyroidism: Plan: Continue Synthroid therapy (9) T2DM (type 2 diabetes mellitus): Plan: Hold Farxiga glipizide check hemoglobin A1c have insulin sliding scale we will not add glargine unless we need to holding lisinopril at this time (10) DVT prophylaxis: Plan: Heparin for DVT prevention Patient and her confirms she is a full code prior to admission Admission and Anticipated Discharge Date Admission Date: September 23, 2021 Subjective She had a increasing work of breathing and shortness of breath associate with hypoxemia. She is almost 4 L ahead. Patient has no known history of congestive heart failure however she sounded to be with pulmonary edema subsequently the fluids were held she was given Lasix intravenously and placed Burgos catheter for ins and out measurements. Additionally echocardiogram is now pending however it was relayed to me that the patient's roommate has now tested positive for Covid over the past patient was negative on the admission. Patient had CODE BLUE cardiac arrest around 6:30 PM she was successfully resuscitated but required intubation patient's family was informed Review of Systems Review of Systems: Review of systems was prior to cardiac arrest mild to Moderate distress and fatigue no headache, no visual changes no speech or swallowing issues pleuritic chest pain, no pressure or palpitations no shortness of breath, non productive cough or wheezes right sided reproducible abdominal pain, nausea or vomiting, diarrhea or constipation no dysuria, hematuria or frequency no focal joint pain or swelling no back pain, CVA tenderness or radicular pain no bruising, bleeding or rashes no focal signs of weakness or numbness or altered sensation except for extreme hard of hearing no complaints of anxiety or depression.. Physical Exam Physical Exam: The patient appeared well nourished and normally developed. Vital signs as documented. Head exam is normocephalic atraumatic Neck is with 1 cm JVD, thyromegaly, or carotid bruits. Lungs are diminished to the right base rales are heard throughout the left lung prior to her cardiac arrest Cardiac exam, Rhythm is regular.. No murmurs, rubs or gallops. Abdominal exam reveals normal bowel sounds, soft right-sided hernia that is reproducible Extremities are nonedematous and both pedal pulses are present Neurologic exam is alert and oriented, no focal loss of strength or sensation very hard of hearing Skin is without bruises or rashes Results & Data Results & Data ([facility]) Vital Signs (Past 12 Hours) Vital Signs Temp Pulse Resp BP BP Pulse Ox 09/24/21 15:13 97.5 F L 103 H 18 129/67 88 L 09/24/21 14:33 105 H 20 88 L 09/24/21 14:19 88 L 09/24/21 12:18 89 L 09/24/21 12:00 81 L 09/24/21 10:46 98.2 F 100 H 20 138/67 90 09/24/21 10:43 89 L 09/24/21 07:18 97.7 F 96 H 18 116/61 89 L PG Care Time/CCT Total # of Minutes Spent Total Time Spent with Patient: Total time spent is greater than 50% in coordination of care (as documented) at patient's floor/unit and/or counseling patient: Coding Level of Care Code 72552 Subseq Hosp Care Lvl 3 Diagnoses Pneumonia J18.9 COPD (chronic obstructive pulmonary disease) J44.9 Depression F32.9 History of breast cancer Z85.3 Hypothyroidism E03.9 T2DM (type 2 diabetes mellitus) E11.9 DVT prophylaxis Z29.9 Person under investigation for COVID-19 Z20.822 Heart failure I50.9 Cardiac arrest I46.9
[2021-09-24] MEDS ORDERED: LIDOCAINE 5% 1 PATCH TD SCH (18:56)
--- NOTE | 2021-09-24 19:19 | CT Scan Report ---
CT head/brain wo con CLINICAL HISTORY: 75 years-old Female with Rule out CVA for code Arctic protocol. Acute strokelike s ymptoms TECHNIQUE: Multiple axial CT images of the head were obtained without contrast. A dose lowering tech nique was utilized adhering to the principles of ALARA. CT DOSE: 884.08 mGy.cm COMPARISON: Brain MRI 02/03/2020 FINDINGS: No acute intracranial hemorrhage, midline shift, intracranial mass, hydrocephalus, territorial ischem ia or abnormal extra-axial collection. Age-related involutional changes. Motion degraded exam. White matter hypodensities suggest chronic microvascular ischemic disease. Chronic appearing linear infarct s of the left caudate and lentiform nuclei. The calvarium is intact. Partially imaged endotracheal tube. Air-fluid levels of the sphenoid sinuses . The mastoid air cells are clear. Unremarkable soft tissues. Prior bilateral lens repair. 1.7 cm mas s of the right parotid gland redemonstrated with punctate central calcification. IMPRESSION: 1. Motion degraded exam without acute intracranial abnormality identified. 2. Age-related involutional changes with chronic microvascular ischemic disease. 3. Chronic lacunar infarcts of the left basal ganglia. 4. Previously biopsied right parotid mass redemonstrated ACT 112: Negative or not required by law. The above report was generated using voice recognition software. It may contain grammatical, syntax o r spelling errors. Electronically signed by: Carlos Lacey M.D. 09/24/2021 7:18 PM
[2021-09-24] MEDS ORDERED: STAT IV Infusion **Titration per Protocol STA ×2 (19:30→23:23)
[2021-09-24] MEDS ORDERED: PROPOFOL IV EMULSION 10 MG/ML 100 ML VIAL IV ONE (19:31)
--- NOTE | 2021-09-24 19:58 | XRay Report ---
XR chest 1V portable HISTORY: 75 years-old Female s/p ETT/OG acute respiratory failure COMPARISON: Chest radiograph 09/24/2021 at 12:20 PM TECHNIQUE: Semierect AP view of the chest FINDINGS: Cardiac mediastinal and hilar silhouettes are unchanged. Endotracheal tube overlies the midline, 2.4 cm superior to the delonte. Enteric tube courses below the diaphragm with distal tip outside the field -of-view. No pneumothorax.. There is improved aeration of the right lung with moderate size right ple ural effusion. Extensive multifocal bilateral airspace opacities redemonstrated which have progressiv lili worsened within the left upper lung. Surgical clips of the right axilla. Bones of the chest appea r grossly intact. IMPRESSION: 1. Endotracheal and enteric tube placement as above. 2. Moderate pleural effusion with mildly improved aeration of the right lung. 3. Progressively worsened left upper lung airspace opacities. ACT 112: Negative or not required by law. The above report was generated using voice recognition software. It may contain grammatical, syntax o r spelling errors. Electronically signed by: Carlos Lacey M.D. 09/24/2021 7:56 PM
--- NOTE | 2021-09-24 20:37 | Procedure Note ---
Procedure Note Date of Service September 24, 2021 Note INTUBATION PROCEDURE NOTE: Dr. Pedrito Martinez A time-out was completed verifying correct patient, procedure, site, positioning. Patient was evaluated and required intubation for altered mental status and hypoxemic respiratory failure. Sedative agent used: None Paralysis agent used: None Emergent consent was implied given patients rapidly declining clinical status and need for airway protection. Number of attempts: 1 Grade view: Video laryngoscope The patient was prepared in the appropriate fashion. The patient was easily ventilated using [id number] to achieve adequate oxygenation. A 7.5 Cypriot endotracheal tube was placed under video laryngoscope to 22 cm at the lip. The stylette was removed and balloon was inflated with 10mL of air. Appropriate Colorimetric change was appreciated. Bilateral breath sounds were heard without air sounds in the abdomen. Post Intubation Chest X-ray ordered Coding CPT Codes Resuscitation - Resuscitation: 56274 Endotracheal Intubation, emergency ([id number]) [facility] [place] Procedure Codes (Charges) Resuscitation Resuscitation: 07432 Endotracheal Intubation, emergency
--- NOTE | 2021-09-24 20:38 | Procedure Note ---
Procedure Note Date of Service September 24, 2021 Note PIGTAIL CATHETER PLACEMENT NOTE: Procedure: Pigtail Catheter Chest Tube Placement Indication: Loculated right pleural effusion Anesthesia: 8 ml Lidocaine 1% Written consent was obtained and placed on the chart. Timeout was done prior to the procedure. Prior to procedure, chest x-ray films were reviewed by myself and demonstrated a large right effusion A time-out was completed verifying correct patient, procedure, site, positioning, and implant(s) or special equipment if applicable. Utilizing bedside ultrasound, chest wall was evaluated for location for optimal chest tube placement. Location between the fifth and sixth ribs were marked on the skin using gentle pressure. The right sided chest wall was prepped with chlorhexidine and draped in the typical sterile fashion. 8 mL of 1% Lidocaine without epinephrine was used to anesthetize the skin down to the dorsal surface of the fifth rib. Yellow fluid return confirmed entry into the pleural space. Lidocaine was injected into the pleural space for increased anesthetization. Introducer needle on syringe was inserted in perpendicular fashion taking care to ride just above the dorsal surface of the 6 rib. Entry into the pleural space was heralded by fluid return into the syringe while under gentle aspiration. Guide wire was advanced into the pleural space without resistance and the introducer needle was subsequently removed. Scalpel was used to make small incision of the superficial tissue, parallel to the direction of the rib anatomy. Dilator was advanced uneventfully over the guide wire into the pleural space. 14 Arabic Pigtail Catheter was inserted into the pleural space. Inner introducer and guide wire were removed. Drain was immediately connected to pre- prepared TEE pleur-evac system. Pigtail was sutured securely in place and sterile dressing was applied. Chest tube was placed to -20 cmH2O suction. Patient tolerated procedure well. Blood Loss: Minimal Complications: None Post procedure chest x-ray is ordered Coding
[2021-09-24] MEDS: ALBUT/IPRATROP 3MG/0.5MG NEB 3 ML VIAL NEB SCH (20:48)
--- NOTE | 2021-09-24 20:49 | Critical Care Consultation ---
Date of Consultation September 24, 2021 Assessment & Plan (1) Cardiac arrest: (2) Heart failure: (3) Pleural effusion: (4) Aspiration pneumonia: (5) ARDS (adult respiratory distress syndrome): Neurologic: Unresponsive to commands post cardiac arrest We will proceed with hypothermia protocol with the family consent. Pulmonary: High ventilatory demands. Continue lung protective ventilation strategy. I placed the pigtail catheter in the right hemithorax. Minimal fluid is being aspirated which may be due to loculation or malposition. We will repeat a CT chest. Continue broad-spectrum biotics. Obtain tracheal aspirate. Cardiovascular: Bedside echo with no evidence of pericardial effusion. Will obtain echocardiogram. Trend troponins. Hypothermia protocol per family consent as noted above. Gastrointestinal: N.p.o. Renal: No significant issues. Monitor urine output closely. Infectious disease: Panculture. Broad-spectrum antibiotics. MRSA screen negative. Hematologic: We will obtain CBC to evaluate for evidence of bleed. Endocrine: ICU hypoglycemia protocol Lines and tubes: Intubated 09/24/2021. Left radial art line in place 09/24, IJ in place 09/24. Right pigtail 09/24 VTE prophylaxis: We will hold. SCDs. CODE STATUS: Full. Poor prognosis. Family at bedside: Son updated at bedside. Disposition: ICU I have personally spent 63 minutes of critical care time in the direct management of this patient. This is a life/limb threatening event. This includes time spent evaluating patient, direct bedside care, chart review, placing orders, interpretation of diagnostic studies, discussion with consultants, patient, and family members, as well as other required patient management activities. This time is exclusive of all separately billable procedures, and teaching time and separate from and in addition to any other critical care service time. Thank you for allowing us to participate in the care of this patient. History of Present Illness Reason for Consultation: Cardiac arrest Attending Physician: Riley Gayle MD History of Present Illness 75-year-old female with a history of COPD, thrombocytopenia, type 2 diabetes mellitus, asthma anxiety presenting to the hospital yesterday due to shortness of breath was found to be in PEA cardiac arrest this evening. When I arrived ACLS was underway and she had received 1 dose of epinephrine. A total downtime of 6 minutes was estimated. She did not receive any defibrillations. ROSC was achieved and she was found to be in sinus tachycardia. She has not required vasopressors. Collateral history was obtained from nursing and hospitalist. She has been feeling short of breath throughout the day. She has required escalating amounts of oxygen. Patient was obtunded and unresponsive to commands post cardiac arrest. I emergently intubated her for airway protection. I had a discussion with the patient's son who is available at bedside and updated him about her condition. It should be noted that she was tested for COVID-19 earlier this hospitalization and was found to be negative. Her roommate did test positive recently. Allergies Allergy/AdvReac Type Severity Reaction Status Date / Time Sulfa (Sulfonamide AdvReac swelling Verified 01/08/21 15:14 Antibiotics) bee sting Allergy Hives Uncoded 09/23/21 12:04 Home Medications Medication Instructions Recorded Confirmed Type cholecalciferol (vitamin D3) 0 mg PO DAILY 06/22/19 09/23/21 History vitamin B complex 0 mg PO DAILY 06/22/19 09/23/21 History albuterol sulfate 90 mcg/actuation See Rx Instructions INHALATION 09/28/20 09/23/21 Rx aerosol inhaler (Ventolin HFA) .COMPLEX PRN #18 g levothyroxine 50 mcg tablet 50 mcg PO DAILY #90 tab 03/07/21 09/23/21 Rx buspirone 15 mg tablet 15 mg PO BID 30 Days #180 tab 03/11/21 09/23/21 Rx fluoxetine 40 mg capsule 40 mg PO DAILY #90 cap 06/04/21 09/23/21 Rx lisinopril 2.5 mg tablet 2.5 mg PO DAILY #90 tab 06/04/21 09/23/21 Rx dapagliflozin 10 mg tablet 10 mg PO DAILY #90 tab 06/05/21 09/23/21 Rx glipizide 10 mg tablet 20 mg PO BID #180 tab 06/28/21 09/23/21 Rx umeclidinium 62.5 mcg/actuation 1 inh INHALATION DAILY #30 ea 08/02/21 09/23/21 Rx blister powder for inhalation (Incruse Ellipta) alprazolam 0.5 mg tablet 0.5 mg PO HS #30 tab 08/29/21 09/23/21 Rx anastrozole 1 mg tablet 1 mg PO DAILY #90 tab 08/29/21 09/23/21 Rx Patient History Medical History (Updated 09/24/21 @ 20:44 by Pedrito Martinez MD) Anxiety ARDS (adult respiratory distress syndrome) Aspiration pneumonia Asthma COPD (chronic obstructive pulmonary disease) Depression Heartburn History of breast cancer History of stomach ulcers History of stroke Hyperlipidemia Hypothyroidism Osteoarthritis Pleural effusion T2DM (type 2 diabetes mellitus) Thrombocytopenia Vitamin D deficiency Surgical History Hx of breast surgery November 2011 S/P cataract surgery Right eye S/P cholecystectomy Family History Father Cardiac disorder Diabetes Myocardial infarction Hypertension Mother Cardiac disorder Diabetes Myocardial infarction Hypertension Brother Leukemia Hearing loss Hypertension Cancer Sister Hypertension Other Asthma No family history of bleeding disorder Denies family history of Ovarian cancer Prostate cancer Heart disease Breast cancer Colorectal cancer Stroke Social History Smoking Status: Smoker, status unknown packs per day: 0.5; Second Hand Exposure: Yes; Hx Alcohol Use: No Hx Substance Use: No Preferred Language: Mexican Communication Ability: needs aids Visual Impairment: No Limitations Hearing Ability: Hard of Hearing 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: No Beliefs That Will Affect Care: None marital status: Current Living Situation: Spouse current occupational status: retired Feels Safe at Home: Yes Safety Concerns: Feels Safe At This Time Childhood Exposure to Second-Hand Smoke: Yes caffeine: Yes during the past year weight has: remained stable Dental Care, Regularly: No Physical Activity Frequency: Does not Exercise Seatbelt Use: never Sunscreen Use: No (Does not go out in the sun) Assistive Devices: Walker Assistive Devices Comment: patient forgot bilateral hearing aids Review of Systems Review of Systems: Unobtainable due to endotracheal tube and Unobtainable due to reduced consciousness Physical Exam Physical Exam: Constitutional: Patient obtunded and in respiratory distress Eyes: Pupils are equal round and reactive to light. Conjunctivae are normal. Anicteric sclera. Ears nose, mouth and throat: Dentures in place. No obvious deformities. Neck: Trachea is midline. Visual inspection is normal. Respiratory: Coarse breath sounds bilaterally. Cardiovascular: Tachycardic. No murmurs. Minimal edema. Gastrointestinal: Normal bowel sounds, soft, nontender and nondistended. No hepatosplenomegaly noted. Musculoskeletal: Extremities intact. Cyanotic. Skin: No rashes, warm dry and intact. Neurologic: Obtunded. Not following commands. GCS 3. Psychiatric: Alert and oriented x3 with a euthymic affect. Results & Data Results & Data ([facility]) Vital Signs (Past 12 Hours) Vital Signs Temp Pulse Pulse Resp BP BP Pulse Ox 09/24/21 19:57 123 H 24 91 09/24/21 15:13 36.4 C L 103 H 18 129/67 88 L 09/24/21 14:33 105 H 20 88 L 09/24/21 14:19 88 L 09/24/21 12:18 89 L 09/24/21 12:00 81 L 09/24/21 10:46 36.8 C 100 H 20 138/67 90 09/24/21 10:43 89 L vital signs, labs and imaging reviewed Coding Level of Care Code Critical Care 1st 30-74 mins Diagnoses Cardiac arrest I46.9 Heart failure I50.9 Pleural effusion J90 Aspiration pneumonia J69.0 ARDS (adult respiratory distress syndrome) J80 Time Spent (min) 63
[2021-09-24] MEDS ORDERED: VECURONIUM BROMIDE 10 MG VIAL IV ONE (20:53)
--- NOTE | 2021-09-24 21:04 | XRay Report ---
XR chest 1V portable HISTORY: 75 years-old Female Chest Tube Placement status post placement of a right-sided chest tube COMPARISON: Chest radiograph 09/24/2021 at 7:18 PM TECHNIQUE: Portable AP view of the chest FINDINGS: Endotracheal tube terminates 2.1 cm superior to the delonte. Enteric tube courses below the level the diaphragm into the expected location of the stomach. Status post placement of a right-sided pigtail c atheter air with distal tip coiled adjacent to the right hilum. Surgical clips of the right axilla re demonstrated. Moderate right and trace left pleural effusions. No pneumothorax identified. Extensive multifocal air space opacities appear generally stable. Degenerative changes of the shoulders and spine. IMPRESSION: 1. Status post placement of a right-sided pigtail catheter with distal tip adjacent to the right hilu m. No pneumothorax. 2. Moderate right and trace left pleural effusions. 3. Unchanged extensive bilateral airspace opacities. ACT 112: Negative or not required by law. The above report was generated using voice recognition software. It may contain grammatical, syntax o r spelling errors. Electronically signed by: Carlos Lacey M.D. 09/24/2021 9:03 PM
[2021-09-24 21:19] LABS: iSTAT Art Bld Gas pCO2 Correct 69 mmHg (35-46); iSTAT Art Bld Gas pH Corrected 7.147 (7.35-7.45); iSTAT Arterial Blood Gas HCO3 24 meg/L (19-24); iSTAT Arterial Blood Gas pCO2 69 mmHg (35-46); iSTAT Arterial Blood Gas pH 7.15 (7.35-7.45); iSTAT Arterial Blood Gas pO2 76 mmHg (80-95); iSTAT Arterial Blood Gas pO2 C 76; iSTAT Carbon Dioxide 26 mmol/L (24-31); iSTAT FiO2 100 %; iSTAT Hematocrit 37 % (37-47); iSTAT Hemoglobin 12.6 g/dl (12.0-16.0); iSTAT Potassium 3.1 mmol/L (3.3-5.0); iSTAT Site Art Line; iSTAT Sodium 138 mmol/L (135-144)
--- NOTE | 2021-09-24 21:33 | Procedure Note ---
Procedure Note Date of Service September 24, 2021 Note Procedure: Internal Jugular Central Line Placement Attending: Dr. Martinez APC: Tor Storm PA-C Indication: Central Drug Administration, Poor Venous Access, Multiple Lab Draws Necessary, etc. Anesthesia: Lidocaine 1% Consent was signed and placed on the chart prior to procedure. Indication, risks, and benefits were explained at length. A time-out was completed verifying correct patient, procedure, site, positioning, and implants(s) or special equipment if applicable. Patients RIGHT Neck was cleansed and draped in the typical sterile fashion using Chloraprep. The Internal Jugular Vein and Carotid Artery were identified using ultrasound. The superficial tissue was anesthetized using 5.0 mL of 1% lidocaine without epinephrine under direct visualization with the ultrasound. After adequate anesthetization was achieved, the Internal Jugular vein was cannulated under direct ultrasound guidance using an introducer needle on a syringe. Good venous blood return was maintained prior to removal of syringe from introducer needle. Using Seldinger Technique, a guide wire was advanced through the introducer needle without resistance. The introducer needle was removed and ultrasound images were obtained of the guide wire within the Internal Jugular Vein and saved to the patients medical record. A small incision was made in penetrating fashion at the guide wire insertion site utilizing an 11 blade scalpel. The dilator was advanced to the vessel without resistance. The dilator was exchanged for the triple lumen catheter which was advanced into the vessel without resistance. The guide wire was removed intact from the catheter without issue. Claves were placed on each catheter tip with confirmation of good blood flow from each lumen. Each port was easily flushed with sterile saline. The catheter was placed at 14 cm and sutured in place. BioPatch was applied to the catheter and a sterile Tegaderm dressing was applied over the catheter with careful attention to sterility. Patient tolerated procedure well. No immediate complications were met. Post procedure CT and CT chief projectionist films were completed, placement was appropriate and no pneumothorax was noted. Images obtained are saved for permanent record Procedural Ultrasound Guidance: Procedure Date: 09/24/2021 Indication: Multiple drips, pressors, poor peripheral access, frequent lab draws. Attending: Dr. Martinez APC: Tor Storm PA-C Artery AND Vein visualized: YES Compressible Vein: YES Guidewire or Short Catheter seen in vein prior to dilation: YES Line confirmed in Vein with ultrasound: YES Images obtained are saved for permanent record. Coding CPT Codes Tubes, Drains, and Vasc Access - Tubes, Drains, and Vasc Access: [id number] Insertion Of Non-tunneled Catheter Age 3 Yrs> ([id number]) Tubes, Drains, and Vasc Access - Tubes, Drains, and Vasc Access: [id number] Ultrasound Guidance For Vascular ([id number]) [facility] [place]Charges) Tubes, Drains, and Vasc Access Procedure 2: Tubes, Drains, and Vasc Access: [id number] Insertion Of Non-tunneled Catheter Age 3 Yrs> Procedure 3: Tubes, Drains, and Vasc Access: [id number] Ultrasound Guidance For Vascular
--- NOTE | 2021-09-24 21:33 | Procedure Note ---
Procedure Note Date of Service September 24, 2021 Note Procedure: Arterial Line Placement Attending: Dr. Martinez APC: Tor Storm PA-C Indication: Hemodynamic monitoring Anesthesia: None Consent was signed and placed on the chart prior to procedure. Indication, risks, and benefits were explained at length. A time-out was completed verifying correct patient, procedure, site, positioning, and implant(s) or special equipment if applicable. Allens test was performed to ensure adequate perfusion. Patients LEFT wrist was prepped and draped in the usual sterile fashion. Ultrasound guidance was used to aid needle placement. A 20g Arrow arterial line was introduced into the LEFT Radial artery. Catheter was threaded, and the needle was removed with appropriate blood return. Good waveform was observed. The patient tolerated the procedure well. Confirmation of placement with ultrasound. Blood Loss: Minimal Complications: None Procedural Ultrasound Guidance: Procedure Date: 09/24/2021 Indication: Hemodynamic Monitoring, Frequent ABGs/Lab draws. Attending: Dr. Martinez APC: Tor Storm PA-C Artery Identified: YES Line confirmed in Artery with ultrasound: YES Complications: NONE Patient tolerated procedure: WELL Coding CPT Codes Tubes, Drains, and Vasc Access - Tubes, Drains, and Vasc Access: [id number] Place Catheter In Artery ([id number]) [facility] [place] Codes (Charges) Tubes, Drains, and Vasc Access Procedure 1: Tubes, Drains, and Vasc Access: [id number] Place Catheter In Artery
[2021-09-24] MEDS: HEPARIN SOD 5,000 UNIT/0.5 ML VIAL SQ SCH (21:36)
[2021-09-24] MEDS: propofoL 1,000 MG/100 ML VIAL IV SCH (21:36)
[2021-09-24 21:42] LABS: Hematocrit (blood only) 38.4 % (37-47); Hemoglobin 12.6 g/dL (12.0-16.0); Mean Corpuscular Hemoglobin 32.1 pg (25-34); Mean Corpuscular Hgb Conc 32.8 g/dL (32-36); Mean Corpuscular Volume 97.7 fL (80-100); Mean Platelet Volume 10.4 fL (7.4-10.4); Platelet Count 285 K/uL (130-400); RDW Coefficient of Variation 14.3 % (11.5-14.5); RDW Standard Deviation 51.5 fL (36.4-46.3); Red Blood Count 3.93 M/uL (4.2-5.4); White Blood Count 31.57 K/uL (4.8-10.8)
[2021-09-24 21:43] LABS: Basophils # (auto) 0.03 K/uL (0-0.2); Basophils % (auto) 0.1 %; Echinocytes 1+; Eosinophils # (auto) 0.02 K/uL (0-0.5); Eosinophils % (auto) 0.1 %; Immature Granulocytes # (auto) 0.33 K/uL (0.00-0.02); Lymphocytes # (auto) 0.81 K/uL (1.2-3.4); Lymphocytes % (auto) 2.6 %; Monocytes # (auto) 1.13 K/uL (0.11-0.59); Monocytes % (auto) 3.6 %; Neutrophils # (auto) 29.25 K/uL (1.4-6.5); Neutrophils % (auto) 92.6 %; Polychromasia 1+
[2021-09-24 21:46] LABS: Albumin Globulin Ratio 0.6 (0.9-2); Albumin Level 2.3 gm/dl (3.4-5.0); BUN Creatinine Ratio 22.6 (10-20); Bilirubin,Total 0.8 mg/dl (0.2-1.0); Calcium 7.1 mg/dl (8.5-10.1); Est GFR (African American) 68.7 ml/min; Est GFR (Non-African American) 59.3 ml/min; Globulin 3.6 gm/dl (2.5-4.0); Potassium 2.9 mmol/L (3.5-5.1); Total Protein 5.9 gm/dl (6.0-8.3); Troponin I 0.14 ng/ml (0-0.04)
[2021-09-24] MEDS ORDERED: ARTIFICIAL TEARS OP OINT 3.5 GM TUBE OP PRN (22:05)
[2021-09-24] MEDS ORDERED: ICU PROTOCOL FOR HYPERGLYCEMIA PRN (22:10)
[2021-09-24 22:35] LABS: Appearance Pleural Fluid CLOUDY; Basophils, Fluid 0 %; Color Pleural Fluid RED; Eosinophils, Fluid 0 %; Lymphocytes, Fluid 13 %; Mono,Macrophage,Mesothelial 1 %; Neutrophils, Fluid 86 %; RBC Pleural Fluid (A) 797000 /uL; Source Pleural Fluid RIGHT LUNG; WBC Pleural Fluid (A) 5076 /uL
[2021-09-24] MEDS: POTASSIUM CHLORIDE / WTR 20 MEQ/100 ML PLCT IV SCH (23:02)
[2021-09-24 23:30] LABS: Adenovirus PCR Not Detected (NotDetected); Bordetella parapertussis PCR Not Detected (NotDetected); Bordetella pertussis PCR Not Detected (NotDetected); Chlamydia pneumoniae PCR Not Detected (NotDetected); Coronavirus 229E PCR Not Detected (NotDetected); Coronavirus CoV-2 (COVID19)PCR Not Detected (NotDetected); Coronavirus HKU1 PCR Not Detected (NotDetected); Coronavirus NL63 PCR Not Detected (NotDetected); Coronavirus OC43PCR Not Detected (NotDetected); Human Metapneumovirus PCR Not Detected (NotDetected); Influenza A PCR Not Detected (NotDetected); Influenza B PCR Not Detected (NotDetected); Mycoplasma pneumoniae PCR Not Detected (NotDetected); Parainfluenza Virus 1 PCR Not Detected (NotDetected); Parainfluenza Virus 2 PCR Not Detected (NotDetected); Parainfluenza Virus 3 PCR Not Detected (NotDetected); Parainfluenza Virus 4 PCR Not Detected (NotDetected); Respiratory Syncytial VirusPCR Not Detected (NotDetected); Rhinovirus/Enterovirus PCR Not Detected (NotDetected)
[2021-09-24] MEDS: NOREPINEPHRINE/D5W 8 MG/508 ML BAG IV SCH (23:38)
[2021-09-25 00:05] LABS: iSTAT Art Bld Gas pCO2 Correct 57 mmHg (35-46); iSTAT Art Bld Gas pH Corrected 7.247 (7.35-7.45); iSTAT Arterial Blood Gas HCO3 25 meg/L (19-24); iSTAT Arterial Blood Gas pCO2 59 mmHg (35-46); iSTAT Arterial Blood Gas pH 7.23 (7.35-7.45); iSTAT Arterial Blood Gas pO2 164 mmHg (80-95); iSTAT Arterial Blood Gas pO2 C 159; iSTAT Carbon Dioxide 27 mmol/L (24-31); iSTAT FiO2 90 %; iSTAT Hematocrit 36 % (37-47); iSTAT Hemoglobin 12.2 g/dl (12.0-16.0); iSTAT Site Art Line; iSTAT Sodium 137 mmol/L (135-144)
[2021-09-25] MEDS: POTASSIUM CHLORIDE / WTR 20 MEQ/100 ML PLCT IV SCH ×2 (00:18→02:16)
[2021-09-25] MEDS: NORMOSOL-R 1,000 ML IV SCH ×3 (01:43→23:24)
[2021-09-25] MEDS: propofoL 1,000 MG/100 ML VIAL IV SCH ×3 (02:16→18:17)
[2021-09-25 04:49] LABS: iSTAT Art Bld Gas pCO2 Correct 48 mmHg (35-46); iSTAT Art Bld Gas pH Corrected 7.278 (7.35-7.45); iSTAT Arterial Blood Gas HCO3 23 meg/L (19-24); iSTAT Arterial Blood Gas pCO2 48 mmHg (35-46); iSTAT Arterial Blood Gas pH 7.28 (7.35-7.45); iSTAT Arterial Blood Gas pO2 86 mmHg (80-95); iSTAT Arterial Blood Gas pO2 C 86; iSTAT Carbon Dioxide 24 mmol/L (24-31); iSTAT FiO2 70 %; iSTAT Hematocrit 37 % (37-47); iSTAT Hemoglobin 12.6 g/dl (12.0-16.0); iSTAT Potassium 4.3 mmol/L (3.3-5.0); iSTAT Site Art Line; iSTAT Sodium 137 mmol/L (135-144)
[2021-09-25] MEDS ORDERED: ALBUT/IPRATROP 3MG/0.5MG NEB 3 ML VIAL NEB PRN ×2 (04:53→10:07)
[2021-09-25] MEDS: ALBUT/IPRATROP 3MG/0.5MG NEB 3 ML VIAL NEB SCH ×3 (04:53→19:46)
[2021-09-25] MEDS: LEVOTHYROXINE SODIUM 50 MCG TABLET PO SCH (04:58)
[2021-09-25] MEDS: PIPERACILLIN/TAZOBACTAM 3.375 GM in DEXTROSE 5% 100 ML IV SCH ×3 (04:58→20:01)
[2021-09-25 05:19] LABS: Hematocrit (blood only) 37.4 % (37-47); Hemoglobin 12.2 g/dL (12.0-16.0); Mean Corpuscular Hemoglobin 31.9 pg (25-34); Mean Corpuscular Hgb Conc 32.6 g/dL (32-36); Mean Corpuscular Volume 97.7 fL (80-100); Mean Platelet Volume 10.4 fL (7.4-10.4); Platelet Count 227 K/uL (130-400); RDW Coefficient of Variation 14.6 % (11.5-14.5); RDW Standard Deviation 52.2 fL (36.4-46.3); Red Blood Count 3.83 M/uL (4.2-5.4); White Blood Count 24.19 K/uL (4.8-10.8)
[2021-09-25 05:56] LABS: Albumin Level 2.3 gm/dl (3.4-5.0); BUN Creatinine Ratio 22.4 (10-20); Bilirubin Direct 0.4 mg/dl (0-0.2); Bilirubin,Total 0.9 mg/dl (0.2-1.0); Calcium 7.7 mg/dl (8.5-10.1); Creatinine Clr Calc Pharmacy 39.3 ml/min; Est GFR (African American) 52.6 ml/min; Est GFR (Non-African American) 45.4 ml/min; Magnesium 2.2 mg/dl (1.7-2.4); Phosphorus 3.9 mg/dl (2.5-4.9); Potassium 4.3 mmol/L (3.5-5.1); Total Protein 5.9 gm/dl (6.0-8.3)
[2021-09-25] MEDS ORDERED: SEVERE STRESS LEVEL ONE (06:01)
[2021-09-25] MEDS ORDERED: INSULIN PROTOCOL GOAL RANGE ONE (06:01)
[2021-09-25] MEDS ORDERED: STAT IV Infusion **Titration per Protocol STA (06:01)
[2021-09-25] MEDS ORDERED: NovoLIN-R BOLUS FROM BAG IV ONE (06:15)
[2021-09-25 06:21] LABS: Troponin I 0.34 ng/ml (0-0.04)
[2021-09-25] MEDS: INSULIN REGULAR 250 UNITS in SODIUM CHLORIDE 0.9% 247.5 ML IV SCH ×2 (06:24→19:26)
[2021-09-25] MEDS ORDERED: INSULIN ASPART PER UNIT SC SCH (07:30)
[2021-09-25] MEDS: PROPOFOL BOLUS FROM BAG IV PRN ×2 (07:58→12:15)
--- NOTE | 2021-09-25 08:16 | Procedure Note ---
Procedure Note Date of Service September 25, 2021 Note Written consent was obtained and placed on the chart. Timeout was done prior to the procedure. Prior to procedure, chest x-ray films were reviewed by myself and demonstrated a large right effusion A time-out was completed verifying correct patient, procedure, site, positioning, and implant(s) or special equipment if applicable. Utilizing bedside ultrasound, chest wall was evaluated for location for optimal chest tube placement. Location between the fifth and sixth ribs were marked on the skin using gentle pressure. The right sided chest wall was prepped with chlorhexidine and draped in the typical sterile fashion. 8 mL of 1% Lidocaine without epinephrine was used to anesthetize the skin down to the dorsal surface of the fifth rib. Yellow fluid return confirmed entry into the pleural space. Lidocaine was injected into the pleural space for increased anesthetization. Introducer needle on syringe was inserted in perpendicular fashion taking care to ride just above the dorsal surface of the 6 rib. Entry into the pleural space was heralded by fluid return into the syringe while under gentle aspiration. Guide wire was advanced into the pleural space without resistance and the introducer needle was subsequently removed. Scalpel was used to make small incision of the superficial tissue, parallel to the direction of the rib anatomy. Dilator was advanced uneventfully over the guide wire into the pleural space. 14 Kyrgyz Pigtail Catheter was inserted into the pleural space. Inner introducer and guide wire were removed. Drain was immediately connected to pre- prepared TEE pleur-evac system. Pigtail was sutured securely in place and sterile dressing was applied. Chest tube was placed to -20 cmH2O suction. Patient tolerated procedure well. Blood Loss: Minimal Complications: None Post procedure chest x-ray is ordered Coding CPT Codes Pulmonary/Thoracic - Pulmonary and Thoracic: 61630 Tube thoracostomy ([id number]) [facility] [place] Procedure Codes (Charges) Pulmonary/Thoracic Procedure 1: Pulmonary and Thoracic: [id number] Tube thoracostomy
[2021-09-25] MEDS ORDERED: Nursing to Pharmacy Communication SCH (08:30)
--- NOTE | 2021-09-25 08:38 | CT Scan Report ---
CT SCAN OF THE CHEST WITHOUT IV CONTRAST CLINICAL HISTORY: Pleural effusion. COMPARISON STUDY: Chest x-ray dated 09/24/2021. Chest CT dated 09/23/2021. TECHNIQUE: CT scan of the thorax was performed from the thoracic inlet to the upper abdomen. Images are reviewed in the axial, sagittal, and coronal planes. IV contrast was not administered for this ex amination as per the referring clinician. A dose lowering technique was utilized adhering to the [place] ro[place] of [place]. The examination is severely degraded by motion artifact, as well as streak artifact from the arms which could not be elevated above the chest. CT DOSE: 705.07 mGy.cm FINDINGS: Thyroid: Imaged portions of the thyroid gland are normal in size and attenuation. Thoracic aorta: There is atherosclerotic calcification of the thoracic aorta is normal in caliber and demonstrates bovine variant arch anatomy. Heart: A right internal jugular central venous catheter is in place. The heart is normal in size and without pericardial effusion. The coronary arteries and mitral annulus are densely calcified. The arturo n pulmonary arteries are mildly enlarged suggesting pulmonary artery hypertension. Lungs and pleural spaces: An endotracheal tube terminates above the delonte. Emphysematous change is n oted. A right-sided chest tube is in place. This enters laterally between the 6th and 7th ribs and ex tends into the right major fissure. There are small left and moderate right pleural effusions. The ri ght pleural effusion is at least partially loculated. Multifocal airspace consolidation is seen throu ghout both lungs, most confluent throughout the left upper and lower lobes. No pneumothorax is seen. Mediastinum: There are numerous mildly enlarged mediastinal lymph nodes which measure up to 15 mm in short axis. Rachel: Not well assessed without IV contrast. Axillae: There is no axillary lymphadenopathy. Upper abdomen: An enteric tube extends below the diaphragm into the stomach. The liver is cirrhotic i n morphology and heterogeneous in attenuation. The spleen is enlarged. There is perihepatic ascites. Esophageal varices are suspected. Skeletal structures: The skeletal structures are osteopenic. Degenerative change and hyperkyphosis ar e noted in the thoracic spine. No lytic or blastic bony lesions are seen. There are age indeterminant right anterior 5th and 6th rib fractures. IMPRESSION: 1. Severely streak and motion degraded examination. 2. A right-sided chest tube is in place as above. This extends into the major fissure. 3. No pneumothorax. 4. Advanced emphysema. 5. Small left and moderate right pleural effusions as above. The right pleural effusion is at least p artially loculated. 6. Extensive confluent airspace consolidation is seen throughout both lungs COMBO which has significa ntly worsened as compared to yesterday. This is most typical for pneumonia and radiographic follow-up to resolution is recommended. 7. Cirrhotic liver morphology, splenomegaly, abdominal ascites, esophageal varices are observed. 8. Mildly enlarged mediastinal lymph nodes are likely reactive. 9. There are age indeterminant right anterior rib fractures which may be acute to subacute. 10. Additional findings as above. ACT 112: Negative or not required by law. Electronically signed by: Federico Ruiz M.D. 09/25/2021 8:37 AM
[2021-09-25] MEDS: POTASSIUM CHLORIDE CRTAB 20 MEQ TABCR PO SCH (08:41)
[2021-09-25 08:53] LABS: INR 1.4 (0.9-1.1)
--- NOTE | 2021-09-25 08:59 | Critical Care Progress Note ---
Date of Service September 25, 2021 Assessment & Plan (1) Cardiac arrest: (2) Heart failure: (3) Pleural effusion: (4) Aspiration pneumonia: (5) ARDS (adult respiratory distress syndrome): (6) Pneumothorax: Plan: Neurologic: Continue surface cooling for targeted temperature management. Will continue to follow neurologic response. Pulmonary: Vent demands have improved significantly. Continue to wean oxygen as possible. Continue lung protective ventilation strategy. Placed a second pigtail catheter 09/25/2021 due to poor flow from the initial catheter. Pleural fluid studies sent. She does have a pneumothorax on the right. There is a grade 2 air leak noted in the Jana drain. We will follow with serial chest x-rays. Patient at risk for malignancy given her history of breast cancer and hilar lymphadenopathy. Subcutaneous emphysema noted as well likely from pneumothorax. Cardiovascular: Bedside echo with no evidence of pericardial effusion. Will obtain echocardiogram. Trend troponins. Hypothermia protocol per family consent as noted above. Mild troponin leak noted likely secondary to cardiac arrest. Gastrointestinal: N.p.o. we will consider initiation of tube feeds tomorrow if unable to extubate. Renal: No significant issues. Monitor urine output closely. Infectious disease: Panculture. Broad-spectrum antibiotics. MRSA screen negative. Procal ordered. Leukocytosis improving. Hematologic: No significant issues at present. Endocrine: ICU hypoglycemia protocol Lines and tubes: Intubated 09/24/2021. Left radial art line in place 09/24, IJ in place 09/24. Right pigtail 09/24, second right pigtail catheter placed 09/25/2021. VTE prophylaxis: We will hold. SCDs. CODE STATUS: DNR, but okay with vent. Poor prognosis. Family at bedside: Non available at bedside presently. Disposition: ICU I have personally spent 51 minutes of critical care time in the direct management of this patient. This is a life/limb threatening event. This includes time spent evaluating patient, direct bedside care, chart review, placing or ders, interpretation of diagnostic studies, discussion with consultants, patient, and family members, as well as other required patient management activities. This time is exclusive of all separately billable procedures, and teaching time and separate from and in addition to any other critical care service time. Thank you for allowing us to participate in the care of this patient. Admission and Anticipated Discharge Date Admission Date: September 23, 2021 Subjective Patient remains on cooling blanket for hypothermia protocol this morning. Proximately 500 mL of pleural fluid from the initial pigtail noted. Place additional pigtail catheter this morning in the right hemithorax. Patient on low-dose Levophed overnight. Currently on 40 mg an hour propofol. She did have spontaneous movements intermittently when sedation was lowered. Review of Systems Review of Systems: Unobtainable due to endotracheal tube Physical Exam Physical Exam: Constitutional: Patient obtunded and in respiratory distress Eyes: Pupils are equal round and reactive to light. Conjunctivae are normal. Anicteric sclera. Ears nose, mouth and throat: Dentures in place. No obvious deformities. Neck: Trachea is midline. Visual inspection is normal. Respiratory: Coarse breath sounds bilaterally. Pigtail catheter in place on the right. Cardiovascular: Tachycardic. No murmurs. Minimal edema. Gastrointestinal: Normal bowel sounds, soft, nontender and nondistended. No hepatosplenomegaly noted. Musculoskeletal: Extremities intact. Cyanotic. Skin: No rashes, warm dry and intact. Neurologic: Obtunded. Not following commands. GCS 3. Psychiatric: Alert and oriented x3 with a euthymic affect. Results & Data Results & Data ([facility]) Vital Signs (Past 12 Hours) Vital Signs Temp Pulse Resp BP Pulse Ox 09/25/21 06:15 79 30 H 89/57 L 97 09/25/21 06:00 78 30 H 93/60 L 98 09/25/21 05:32 75 30 H 84/54 L 97 09/25/21 05:02 73 30 H 96 09/25/21 05:00 74 30 H 75/52 L 96 09/25/21 04:35 77 30 H 97 09/25/21 04:00 34.4 C L 78 29 H 130/77 97 09/25/21 03:00 85 29 H 146/84 H 99 09/25/21 02:18 92 H 28 H 137/77 97 09/25/21 02:00 36.4 C L 91 H 28 H 106/65 96 09/25/21 01:38 100 H 28 H 147/79 H 96 09/25/21 01:30 100 H 28 H 94 09/25/21 01:00 95 H 28 H 118/68 94 09/25/21 00:30 96 H 28 H 94 09/25/21 00:00 97 H 28 H 114/73 95 09/24/21 23:53 96 H 25 H 126/72 97 09/24/21 23:32 95 H 25 H 94/56 L 97 09/24/21 23:30 95 H 25 H 97 09/24/21 23:21 95 H 25 H 93/57 L 97 09/24/21 23:11 96 H 25 H 98 09/24/21 23:00 36.1 C L 96 H 25 H 88/55 L 95 09/24/21 22:30 36.1 C L 97 H 25 H 98 09/24/21 22:04 103 H 25 H 101/66 09/24/21 22:01 98 H 25 H 78/64 L 93 09/24/21 22:00 97 H 25 H 93 09/24/21 21:55 100 H 25 H 92/62 L 94 09/24/21 21:47 103 H 14 92 09/24/21 21:20 104 H 25 H 99/62 L 94 09/24/21 21:15 105 H 25 H 101/63 93 09/24/21 21:10 107 H 25 H 119/57 L 91 09/24/21 21:05 109 H 22 117/61 91 09/24/21 21:00 108 H 16 107/58 L 89 L vital signs, labs and imaging reviewed Coding Level of Care Code Critical Care 1st 30-74 mins Diagnoses Cardiac arrest I46.9 Heart failure I50.9 Pleural effusion J90 Aspiration pneumonia J69.0 ARDS (adult respiratory distress syndrome) J80 Pneumothorax J93.9 Time Spent (min) 51
[2021-09-25] MEDS ORDERED: FAMOTIDINE 20 MG in SYRINGE 3 ML IV SCH (09:00)
--- NOTE | 2021-09-25 09:10 | XRay Report ---
XR chest 1V portable HISTORY: 75 years-old Female eval new pigtail cath placement status post placement of a right-sided pigtail catheter COMPARISON: Chest radiograph of same day at 6:51 AM, chest CT 09/24/2021 TECHNIQUE: Semierect supine AP view of the chest FINDINGS: Endotracheal tube overlies the midline, 2.1 cm superior to the delonte. Enteric tube courses below the diaphragm with distal tip outside the [id number]. Right IJ central venous catheter distal tip is noted in the expected location of the mid SVC. There is a moderate sized right pneumothorax with pleu ral separation at the apex measuring 1.8 cm and laterally measuring up to 2.6 cm. There is increased subcutaneous emphysema of the right chest wall and right supraclavicular tissues. A pigtail drainage catheter projects of the lateral right midlung. The distal tip of the more superior pigtail drainage catheter appears to be partially extrathoracic in location. A second pigtail drainage catheter projec ts over the right lung base. Small left greater than right layering pleural effusions redemonstrated. Extensive bilateral mixed interstitial and alveolar opacities with emphysema. Degenerative changes o f the shoulders and spine. IMPRESSION: 1. Lines and tubes as above. The distal tip of the more superior pigtail drainage catheter appears to be partially extrathoracic in location. Repositioning recommended. Status post placement of an addit ional pigtail drainage catheter projected over the right lung base. 2. Moderate sized right pneumothorax with subcutaneous emphysema of the right chest wall and supracla vicular tissues. 3. Layering bilateral pleural effusions with decreased size on the right. 4. Advanced emphysema with extensive bilateral airspace opacities redemonstrated. ACT 112: Negative or not required by law. The above report was generated using voice recognition software. It may contain grammatical, syntax o r spelling errors. Electronically signed by: Carlos Lacey M.D. 09/25/2021 9:09 AM
--- NOTE | 2021-09-25 09:15 | XRay Report ---
SINGLE VIEW CHEST CLINICAL HISTORY: Respiratory failure. FINDINGS: An AP, portable, upright chest radiograph is compared to chest x-ray and chest CT dated 09/01. The examination is degraded by portable technique and patient rotation. An endotracheal tube and an enteric tube, are unchanged in position. A right internal jugular central venous catheter is n ew from previous. The tip projects over the SVC. The heart is enlarged noting atherosclerotic calcifi cation of the thoracic aorta. Emphysema and chronic interstitial thickening is similar to previous. M ultifocal airspace consolidation is again noted. There are right larger than left pleural effusions w ith bibasilar consolidation. A pigtail catheter has been repositioned. This appears to be partially e xtrapleural in location. There is associated subcutaneous emphysema. A small right-sided pneumothorax is suspected. No left-sided Pneumothorax is seen. The skeletal structures are osteopenic. The bony t horax is grossly intact. Surgical clips project over the right axilla. IMPRESSION: 1. A right internal jugular central venous catheter is new from previous. 2. A right-sided pigtail catheter has been repositioned and appears to be at least partially extraple ural in location. 3. Suspect a small right-sided pneumothorax. 4. Multifocal airspace consolidation is again seen throughout both lungs. 5. Layering pleural effusions. 6. Cardiomegaly and emphysema. ACT 112: Negative or not required by law. Electronically signed by: Federico Ruiz M.D. 09/25/2021 9:13 AM
--- NOTE | 2021-09-25 09:21 | XCELERA ---
[id number]
[2021-09-25] MEDS: NICOTINE 14 MG/24 HR PATCH TD SCH (09:25)
[2021-09-25] MEDS: FLUoxetine HCL 20 MG CAP PO SCH (09:26)
[2021-09-25] MEDS: UMECLIDINIUM BROMIDE 62.5MCG/BLISTER 7 PUFFS/INHALER INH SCH (09:27)
[2021-09-25] MEDS: HEPARIN SOD 5,000 UNIT/0.5 ML VIAL SQ SCH ×2 (09:29→20:02)
[2021-09-25 09:38] LABS: Glucose Pleural Fluid 298 mg/dl
[2021-09-25 09:42] LABS: Appearance Pleural Fluid HAZY; Color Pleural Fluid AMBER; RBC Pleural Fluid (A) 19000 /uL; Source Pleural Fluid RIGHT LUNG; WBC Pleural Fluid (A) 6739 /uL
[2021-09-25 09:43] LABS: Basophils, Fluid 0 %; Eosinophils, Fluid 0 %; Lymphocytes, Fluid 10 %; Mono,Macrophage,Mesothelial 30 %; Neutrophils, Fluid 60 %
[2021-09-25 10:57] LABS: BUN Creatinine Ratio 24.8 (10-20); Calcium 7.6 mg/dl (8.5-10.1); Creatinine Clr Calc Pharmacy 38.9 ml/min; Est GFR (African American) 52.1 ml/min; Est GFR (Non-African American) 44.9 ml/min; Magnesium 2.2 mg/dl (1.7-2.4); Phosphorus 3.6 mg/dl (2.5-4.9)
[2021-09-25] MEDS: FLUoxetine HCL 20 MG/5 ML 120ML BTL PO SCH (11:10)
[2021-09-25 11:32] LABS: LDH Pleural Fluid 608 U/L; Total Protein Pleural Fluid 3.1 g/dl
--- NOTE | 2021-09-25 12:40 | XRay Report ---
XR chest 1V portable HISTORY: 75 years-old Female pleural effusions, pneumo follow-up study in a patient with right-sided chest tubes COMPARISON: Chest radiograph of same day at 8:31 AM TECHNIQUE: Portable AP view of the chest FINDINGS: The endotracheal and enteric tubes and right IJ central venous catheter appear unchanged. Stable posi tioning of the chest tube projects over the right lung base. The more superior right-sided chest tube distal tip again appears to be partially extrathoracic. Subcutaneous emphysema of the right lateral chest wall right supra clavicular tissues. There is decreased size of the right-sided pneumothorax, n ow with pleural separation of 1.3 cm at the apex. Emphysema. Left greater than right multifocal airsp katia opacities are unchanged. Small pleural effusions. Bones appear grossly intact. IMPRESSION: 1. The more superior right sided pigtail drainage catheter distal tip again appears to be partially e xtrathoracic. There is associated subcutaneous emphysema. 2. Small right-sided pneumothorax has decreased in size from comparison. 3. Left greater than right extensive airspace opacities are redemonstrated. 4. Emphysema with layering pleural effusions. ACT 112: Negative or not required by law. The above report was generated using voice recognition software. It may contain grammatical, syntax o r spelling errors. Electronically signed by: Carlos Lacey M.D. 09/25/2021 12:38 PM
--- NOTE | 2021-09-25 14:52 | Electrocardiogram Report ---
Test Reason : Blood Pressure : / mmHG Vent. Rate : 125 BPM Atrial Rate : 125 BPM P-R Int : 164 ms QRS Dur : 154 ms QT Int : 350 ms P-R-T Axes : 000 -23 102 degrees QTc Int : 505 ms Sinus tachycardia Non-specific intra-ventricular conduction block Abnormal ECG When compared with ECG of 23-SEP-2021 06:32, Non-specific intra-ventricular conduction block has replaced Incomplete right bundle branch block Confirmed by Sid Mcfarlane ([id number]) on 09/25/2021 2:52:36 PM Referred By: REFERRED SELF Confirmed By:Richard Mcfarlane
[2021-09-25 15:04] LABS: Amylase Pleural Fluid 23 U/L
--- NOTE | 2021-09-25 15:51 | Electrocardiogram Report ---
Test Reason : Blood Pressure : / mmHG Vent. Rate : 077 BPM Atrial Rate : 077 BPM P-R Int : 132 ms QRS Dur : 104 ms QT Int : 442 ms P-R-T Axes : -63 -11 057 degrees QTc Int : 500 ms Ectopic atrial rhythm Abnormal ECG No previous ECGs available Confirmed by Sid Mcfarlane ([id number]) on 09/25/2021 3:51:02 PM Referred By: REFERRED SELF Confirmed By:Richard Mcfarlane
[2021-09-25 16:41] LABS: BUN Creatinine Ratio 25.7 (10-20); Calcium 7.8 mg/dl (8.5-10.1); Creatinine Clr Calc Pharmacy 40.4 ml/min; Est GFR (African American) 54.3 ml/min; Est GFR (Non-African American) 46.8 ml/min; Magnesium 2.4 mg/dl (1.7-2.4); Phosphorus 3.1 mg/dl (2.5-4.9); Potassium 3.4 mmol/L (3.5-5.1)
[2021-09-25] MEDS ORDERED: POTASSIUM CHLORIDE 20 MEQ/15 ML UDC PO STA (18:13)
--- NOTE | 2021-09-25 18:35 | Hospitalist Progress Note ---
Date of Service September 25, 2021 Assessment & Plan (1) Cardiac arrest: Plan: Remains in the ICU with intubation ventilation sedation continues to remain in sinus rhythm Neurology remains unclear echocardiogram shows preserved ejection fraction and wall motion abnormality with right-sided elevated pressures likely consistent with her chronic smoking. Mild troponin leak could be from cardiac contusion from CPR or from shock did require pressors for period of time (2) Pneumonia: Plan: Right lower lobe pneumonia with loculated pleural effusion at the right base consistent possibly with aspiration or gram-negative pneumonia patient be continued on Zosyn therapy. MRSA swab is negative (3) Person under investigation for COVID-19: Plan: was notified by nursing staff that pts roommate tested positive for COVID, will have isolation as PUI, did inform (4) Heart failure: Plan: Heart failure has been ruled out (5) COPD (chronic obstructive pulmonary disease): Plan: Medically treat acute exacerbation is at this time not using steroids at this time will continue home inhalers of Umeclidinium but add duo nebs to her mix (6) Depression: Plan: Continue BuSpar fluoxetine which seems stable (7) History of breast cancer: Plan: History of bilateral mastectomy in 2011 certainly raises concern with this loculated effusion, continue anastrozole (8) Hypothyroidism: Plan: Continue Synthroid therapy (9) T2DM (type 2 diabetes mellitus): Plan: Hold Farxiga glipizide check hemoglobin A1c have insulin sliding scale we will not add glargine unless we need to holding lisinopril at this time (10) DVT prophylaxis: Plan: Heparin for DVT prevention Patient and her confirms she is a full code prior to admission Admission and Anticipated Discharge Date Admission Date: September 23, 2021 Subjective Debated ventilated and sedated Review of Systems Review of Systems: Unobtainable due to cognitive status and Unobtainable due to endotracheal tube Physical Exam Physical Exam: The patient stable on support Vital signs as documented. Lungs are clear to auscultation and patient is being ventilated while sedated easily Cardiac exam, Rhythm is regular.. No murmurs, rubs or gallops. Abdominal exam reveals normal bowel sounds, Extremities are nonedematous and both pedal pulses are normal. Skin is without bruises or rashes Results & Data Results & Data ([facility]) Vital Signs (Past 12 Hours) Vital Signs Pulse Resp BP Pulse Ox 09/25/21 17:00 70 18 92/50 L 96 09/25/21 16:00 77 25 H 110/62 93 09/25/21 15:45 74 27 H 97 09/25/21 15:00 77 23 97 09/25/21 14:00 76 23 94/53 L 95 09/25/21 13:00 70 24 87/51 L 95 09/25/21 12:00 71 22 120/59 L 96 09/25/21 11:15 73 24 94 09/25/21 11:00 74 24 102/59 L 95 09/25/21 10:00 73 30 H 88/52 L 93 09/25/21 09:00 72 30 H 89 L 09/25/21 08:00 84 30 H 94 09/25/21 07:25 81 30 H 98 09/25/21 07:00 83 30 H 97 PG Care Time/CCT Total # of Minutes Spent Total Time Spent with Patient: Total time spent is greater than 50% in coordination of care (as documented) at patient's floor/unit and/or counseling patient: Coding Level of Care Code 83538 Subseq Hosp Care Lvl 2 Diagnoses Cardiac arrest I46.9 Pneumonia J18.9 Person under investigation for COVID-19 Z20.822 Heart failure I50.9 COPD (chronic obstructive pulmonary disease) J44.9 Depression F32.9 History of breast cancer Z85.3 Hypothyroidism E03.9 T2DM (type 2 diabetes mellitus) E11.9 DVT prophylaxis Z29.9
[2021-09-25] MEDS: POTASSIUM CHLORIDE / WTR 10 MEQ/100 ML PLCT IV SCH ×2 (18:43→19:50)
[2021-09-25 23:22] LABS: Calcium 7.6 mg/dl (8.5-10.1); Creatinine Clr Calc Pharmacy 42.6 ml/min; Magnesium 2.4 mg/dl (1.7-2.4); Phosphorus 2.9 mg/dl (2.5-4.9); Potassium 3.9 mmol/L (3.5-5.1)
[2021-09-26] MEDS: propofoL 1,000 MG/100 ML VIAL IV SCH ×5 (01:22→21:30)
[2021-09-26 03:57] LABS: iSTAT Arterial Blood Gas HCO3 23 meg/L (19-24); iSTAT Arterial Blood Gas pCO2 38 mmHg (35-46); iSTAT Arterial Blood Gas pH 7.39 (7.35-7.45); iSTAT Arterial Blood Gas pO2 67 mmHg (80-95); iSTAT Carbon Dioxide 24 mmol/L (24-31); iSTAT FiO2 40 %; iSTAT Site Art Line
[2021-09-26] MEDS: PIPERACILLIN/TAZOBACTAM 3.375 GM in DEXTROSE 5% 100 ML IV SCH ×3 (05:09→20:10)
[2021-09-26 05:17] LABS: Basophils # (auto) 0.01 K/uL (0-0.2); Basophils % (auto) 0.1 %; Eosinophils # (auto) 0.09 K/uL (0-0.5); Eosinophils % (auto) 0.6 %; Hematocrit (blood only) 32.8 % (37-47); Hemoglobin 10.9 g/dL (12.0-16.0); Immature Granulocytes # (auto) 0.06 K/uL (0.00-0.02); Immature Granulocytes % (auto) 0.4 %; Lymphocytes # (auto) 1.16 K/uL (1.2-3.4); Lymphocytes % (auto) 8.1 %; Mean Corpuscular Hemoglobin 32.2 pg (25-34); Mean Corpuscular Hgb Conc 33.2 g/dL (32-36); Mean Platelet Volume 10.4 fL (7.4-10.4); Monocytes # (auto) 0.61 K/uL (0.11-0.59); Monocytes % (auto) 4.3 %; Neutrophils # (auto) 12.32 K/uL (1.4-6.5); Neutrophils % (auto) 86.5 %; Platelet Count 185 K/uL (130-400); RDW Coefficient of Variation 14.3 % (11.5-14.5); RDW Standard Deviation 50.9 fL (36.4-46.3); Red Blood Count 3.38 M/uL (4.2-5.4); White Blood Count 14.25 K/uL (4.8-10.8)
[2021-09-26 05:44] LABS: Albumin Level 2.2 gm/dl (3.4-5.0); BUN Creatinine Ratio 28.6 (10-20); Bilirubin Direct 0.3 mg/dl (0-0.2); Bilirubin,Total 0.7 mg/dl (0.2-1.0); Calcium 7.5 mg/dl (8.5-10.1); Creatinine Clr Calc Pharmacy 43.4 ml/min; Est GFR (African American) 59.3 ml/min; Est GFR (Non-African American) 51.2 ml/min; Magnesium 2.4 mg/dl (1.7-2.4); Phosphorus 2.7 mg/dl (2.5-4.9); Potassium 3.9 mmol/L (3.5-5.1); Total Protein 5.7 gm/dl (6.0-8.3)
[2021-09-26] MEDS: LEVOTHYROXINE SODIUM 50 MCG TABLET PO SCH (06:01)
--- NOTE | 2021-09-26 07:08 | Hospitalist Progress Note ---
Date of Service September 26, 2021 Assessment & Plan (1) Cardiac arrest: Plan: Remains in the ICU with intubation ventilation after failing extubation on 127 for 4 hours was reintubated, sedation continues. remains in sinus rhythm Echocardiogram shows preserved ejection fraction and wall motion abnormality with right-sided elevated pressures likely consistent with her chronic smoking. Mild troponin leak could be from cardiac contusion from CPR or from shock did re quire pressors for period of time (2) Pneumonia: Plan: Right lower lobe pneumonia with loculated pleural effusion at the right base consistent possibly with aspiration or gram-negative pneumonia patient be continued on Zosyn therapy. 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, noted by Dr Alexander with watchful waiting (3) Person under investigation for COVID-19: Plan: was notified by nursing staff that pts roommate tested positive for COVID, will have isolation as PUI, did inform (4) Heart failure: Plan: Heart failure has been ruled out (5) COPD (chronic obstructive pulmonary disease): Plan: Medically treat acute exacerbation is at this time Umeclidinium inhaled via vent (6) Depression: Plan: Continue BuSpar fluoxetine which seems stable (7) History of breast cancer: Plan: History of bilateral mastectomy in 2011 certainly raises concern with this loculated effusion, continue anastrozole (8) Hypothyroidism: Plan: Continue Synthroid therapy (9) T2DM (type 2 diabetes mellitus): Plan: Hold Farxiga glipizide check hemoglobin A1c have insulin sliding scale we will not add glargine unless we need to holding lisinopril at this time (10) DVT prophylaxis: Plan: Heparin for DVT prevention Patient and her confirms she is a full code prior to admission Admission and Anticipated Discharge Date Admission Date: September 23, 2021 Subjective Debated sedated and ventilated failed weaning trial today needed to be reintubated Review of Systems Review of Systems: Unobtainable due to cognitive status and Unobtainable due to endotracheal tube Physical Exam Physical Exam: The patient stable on support Vital signs as documented. Lungs are clear to auscultation and patient is being ventilated while sedated easily Cardiac exam, Rhythm is regular.. No murmurs, rubs or gallops. Abdominal exam reveals normal bowel sounds, Extremities are nonedematous and both pedal pulses are normal. Skin is without bruises or rashes Results & Data Results & Data ([facility]) Vital Signs (Past 12 Hours) Vital Signs Temp Pulse Resp BP Pulse Ox 09/26/21 06:00 96.6 F L 79 21 118/60 92 09/26/21 05:30 86 27 H 143/68 H 88 L 09/26/21 05:00 84 19 125/64 93 09/26/21 04:30 76 18 165/79 H 96 09/26/21 04:00 96.6 F L 75 19 144/72 H 95 09/26/21 03:34 75 20 95 09/26/21 03:30 76 19 160/74 H 94 09/26/21 03:00 76 20 147/77 H 97 09/26/21 02:30 75 18 107/65 95 09/26/21 02:00 74 17 95 09/26/21 01:30 70 17 91/49 L 96 09/26/21 01:00 95.7 F L 75 21 130/71 95 09/26/21 00:30 77 17 135/62 95 09/26/21 00:00 79 18 108/54 L 96 09/25/21 23:30 95.7 F L 73 19 95/50 L 95 09/25/21 22:35 70 18 95 09/25/21 22:00 78 23 136/75 94 09/25/21 21:30 76 22 122/63 94 09/25/21 21:00 95.7 F L 77 21 118/63 96 09/25/21 20:30 77 16 105/58 L 95 09/25/21 20:17 77 18 86/49 L 95 09/25/21 20:15 76 16 95 09/25/21 20:00 76 16 85/49 L 96 09/25/21 19:45 71 16 97 09/25/21 19:30 71 15 95 09/25/21 19:15 68 16 95 PG Care Time/CCT Total # of Minutes Spent Total Time Spent with Patient: Total time spent is greater than 50% in coordination of care (as documented) at patient's floor/unit and/or counseling patient: Coding Level of Care Code 55409 Subseq Hosp Care Lvl 2 Diagnoses Cardiac arrest I46.9 Pneumonia J18.9 Person under investigation for COVID-19 Z20.822 Heart failure I50.9 COPD (chronic obstructive pulmonary disease) J44.9 Depression F32.9 History of breast cancer Z85.3 Hypothyroidism E03.9 T2DM (type 2 diabetes mellitus) E11.9 DVT prophylaxis Z29.9
[2021-09-26] MEDS: ALBUT/IPRATROP 3MG/0.5MG NEB 3 ML VIAL NEB SCH ×2 (07:51→19:46)
[2021-09-26] MEDS: HEPARIN SOD 5,000 UNIT/0.5 ML VIAL SQ SCH ×2 (08:14→20:10)
[2021-09-26] MEDS: UMECLIDINIUM BROMIDE 62.5MCG/BLISTER 7 PUFFS/INHALER INH SCH (08:15)
[2021-09-26] MEDS: FLUoxetine HCL 20 MG/5 ML 120ML BTL PO SCH (08:15)
[2021-09-26] MEDS: FAMOTIDINE 20 MG in SYRINGE 3 ML IV SCH (08:32)
--- NOTE | 2021-09-26 08:43 | XRay Report ---
XR chest 1V portable CLINICAL HISTORY: Dyspnea TECHNIQUE: Single frontal radiograph of the chest was obtained. Comparison: Comparison is made to chest one view 09/25/2021 FINDINGS: Interval removal of the malpositioned right chest tube. The correctly positioned right chest tube is unchanged. Otherwise tubes are stable. Endotracheal tube tip is 13 mm from the delonte. The cardiomediastinal silhouette is stable. Multifocal airspace opacities are unchanged. Previously noted pneumothorax is not seen on to day's exam. There is a right pleural effusion and a left effusion cannot be excluded. IMPRESSION: 1. Stable appearance of multifocal airspace opacities. 2. Interval resolution of right pneumothorax. 3. Interval removal of malpositioned right chest tube, correctly positioned right chest tube is unch anged. 4. The endotracheal tube is 13 mm from the delonte and can be withdrawn approximately 2 cm for improv ed positioning. ACT 112: Negative or not required by law. Electronically signed by: Mulugeta Davison M.D. 09/26/2021 8:42 AM
[2021-09-26] MEDS: LIDOCAINE 5% 1 PATCH TD SCH (10:30)
[2021-09-26] MEDS: ACETAMINOPHEN 1000 MG/100 ML IV IV PRN (10:43)
--- NOTE | 2021-09-26 10:44 | Critical Care Progress Note ---
Date of Service September 26, 2021 Assessment & Plan (1) Cardiac arrest: (2) Heart failure: (3) Pleural effusion: (4) Aspiration pneumonia: (5) ARDS (adult respiratory distress syndrome): (6) Pneumothorax: Plan: Neurologic: Patient following commands and has done remarkably well from a neurologic standpoint status post cardiac arrest. Will limit sedatives at this time. Pulmonary: Successfully extubated 09/26/2021. Currently on 6 L of oxygen. Pigtail remains in place with minimal air leak. Maintain on suction today and likely transition to waterseal tomorrow. Pneumothorax appears to have resolved on chest x-ray, but patient with a minimal air leak as noted previously. Left-sided infiltrates likely related to pulmonary contusion from CPR. Pleural effusion cytology pending. Malignancy remains a possibility given her history of breast cancer and smoking history. Cardiovascular: Echo with an LVEF that is normal. RVSP 30-40. Moderate mitral annular calcification. Continue rewarming process from hypothermia. Gastrointestinal: Speech consult. N.p.o. at this time. Renal: No significant issues. Monitor urine output closely. Infectious disease: Cultures negative to date from blood, sputum and pleural fluid. MRSA screen negative. Procal elevated to 4.581/26. Leukocytosis improving. Continue Zosyn empirically. Hematologic: No significant issues at present. Endocrine: ICU hypoglycemia protocol Lines and tubes: Intubated 09/24/2021. Left radial art line in place 09/24, IJ in place 09/24. Right pigtail 09/24, second right pigtail catheter placed 09/25/2021. VTE prophylaxis: We will hold. SCDs. CODE STATUS: DNR, but okay with vent. She has done remarkably well post cardiac arrest. Prognosis however remains guarded. Family at bedside: Non available at bedside presently. Disposition: Possible downgrade to PCU if she demonstrates continued improvement. I have personally spent 48 minutes of critical care time in the direct management of this patient. This is a life/limb threatening event. This includes time spent evaluating patient, direct bedside care, chart review, placing orders, interpretation of diagnostic studies, discussion with consultants, patient, and family members, as well as other required patient management activities. This time is exclusive of all separately billable procedures, and teaching time and separate from and in addition to any other critical care service time. Thank you for allowing us to participate in the care of this patient. Admission and Anticipated Discharge Date Admission Date: September 23, 2021 Subjective Patient seen and examined. Tolerated spontaneous breathing trial well and was extubated to nasal cannula. She is having chest pain due to the recent CPR that she sustained. No fevers or chills. Off vasopressors at this time. Review of Systems Review of Systems: All systems reviewed & are unremarkable except as noted in HPI & below Physical Exam Physical Exam: Constitutional: Anxious appearing, but no distress from a respiratory standpoint. Eyes: Pupils are equal round and reactive to light. Conjunctivae are normal. Anicteric sclera. Ears nose, mouth and throat: Dentures in place. No obvious deformities. Neck: Trachea is midline. Visual inspection is normal. Respiratory: Coarse breath sounds bilaterally. Pigtail catheter in place on the right. Cardiovascular: Tachycardic. No murmurs. Minimal edema. Gastrointestinal: Normal bowel sounds, soft, nontender and nondistended. No hepatosplenomegaly noted. Musculoskeletal: Extremities intact. Cyanotic. Skin: No rashes, warm dry and intact. Neurologic: Nonfocal. Following commands. Psychiatric: Anxious Results & Data Results & Data ([facility]) Vital Signs (Past 12 Hours) Vital Signs Temp Pulse Resp BP Pulse Ox 09/26/21 07:54 82 24 92 09/26/21 06:00 35.9 C L 79 21 118/60 92 09/26/21 05:30 86 27 H 143/68 H 88 L 09/26/21 05:00 84 19 125/64 93 09/26/21 04:30 76 18 165/79 H 96 09/26/21 04:00 35.9 C L 75 19 144/72 H 95 09/26/21 03:34 75 20 95 09/26/21 03:30 76 19 160/74 H 94 09/26/21 03:00 76 20 147/77 H 97 09/26/21 02:30 75 18 107/65 95 09/26/21 02:00 74 17 95 09/26/21 01:30 70 17 91/49 L 96 09/26/21 01:00 35.4 C L 75 21 130/71 95 09/26/21 00:30 77 17 135/62 95 09/26/21 00:00 79 18 108/54 L 96 09/25/21 23:30 35.4 C L 73 19 95/50 L 95 Vital signs, labs and imaging reviewed Coding Level of Care Code Critical Care 1st 30-74 mins Diagnoses Cardiac arrest I46.9 Heart failure I50.9 Pleural effusion J90 Aspiration pneumonia J69.0 ARDS (adult respiratory distress syndrome) J80 Pneumothorax J93.9 Time Spent (min) 48
[2021-09-26] MEDS: NORMOSOL-R 1,000 ML IV SCH (11:40)
[2021-09-26] MEDS ORDERED: METOPROLOL TARTRATE 1 MG/ML VIAL IV ONE (12:03)
[2021-09-26] MEDS ORDERED: METOPROLOL TARTRATE 1 MG/ML VIAL IV STA (12:04)
[2021-09-26] MEDS ORDERED: STAT IV Infusion **Titration per Protocol STA ×3 (12:11→18:45)
[2021-09-26] MEDS ORDERED: DEXMEDETOMIDINE HCL 200 MCG in SODIUM CHLORIDE 0.9% 48 ML IV SCH (12:15)
[2021-09-26] MEDS ORDERED: FUROSEMIDE INJ 20 MG/2 ML VIAL IV ONE ×2 (12:17→12:19)
[2021-09-26] MEDS ORDERED: RAPID SEQUENCE INDUCTION BAG ONE (13:11)
[2021-09-26] MEDS ORDERED: PROPOFOL IV EMULSION 10 MG/ML 100 ML VIAL IV ONE (13:12)
[2021-09-26] MEDS ORDERED: PROPOFOL BOLUS FROM BAG IV PRN (13:46)
--- NOTE | 2021-09-26 13:49 | Procedure Note ---
Procedure Note Date of Service September 26, 2021 Note INTUBATION PROCEDURE NOTE: Dr. Pedrito Martinez A time-out was completed verifying correct patient, procedure, site, positioning. Patient was evaluated and required intubation for acute hypoxemic respiratory failure and encephalopathy. Sedative agent used: 20 mg of etomidate Paralysis agent used: None Emergent consent was implied given patients rapidly declining clinical status and need for airway protection. Number of attempts: 1 The patient was prepared in the appropriate fashion. Sedation was achieved utilizing etomidate. The patient was easily ventilated using [id number] to achieve adequate oxygenation. A 7.5 Burmese endotracheal tube was placed under glide scope to 22 cm at the lip. The stylette was removed and balloon was inflated with 10mL of air. Appropriate Colorimetric change was appreciated. Bilateral breath sounds were heard without air sounds in the abdomen. Post Intubation Chest X-ray ordered Patient tolerated the procedure well and there were no immediate complications. Coding CPT Codes Resuscitation - Resuscitation: 93815 Endotracheal Intubation, emergency ([id number]) [facility] Procedure Codes (Charges) Resuscitation Resuscitation: 26679 Endotracheal Intubation, emergency
[2021-09-26] MEDS: fentaNYL citrate 2,500 MCG/250 ML BAG IV SCH (14:17)
--- NOTE | 2021-09-26 14:17 | XRay Report ---
SINGLE VIEW CHEST CLINICAL HISTORY: Reintubation. Respiratory failure. FINDINGS: An AP, portable, upright chest radiograph is compared to chest x-ray performed earlier the same day 09/26/[address] dated 09/24/2021. The examination is degraded by portable technique an d patient rotation. A right internal jugular central venous catheter and a pigtail drain at the right lung base are unchanged in position. An endotracheal tube is in place. The tip projects 2.5 cm above the delonte. The heart is enlarged noting atherosclerotic calcification of the thoracic aorta. Emphys bel and chronic interstitial thickening is similar to previous. Multifocal airspace consolidation is again noted. There are small residual pleural effusions. The right pleural effusion appears to be loc ulated. No pneumothorax is clearly identified. The skeletal structures are osteopenic. The bony thora x is grossly intact. Surgical clips project over the right axilla. Subcutaneous emphysema is seen stefania ng the right chest wall. IMPRESSION: 1. Lines and tubes as above. 2. Cardiomegaly and emphysema. 3. No pneumothorax is clearly identified. 4. Small pleural effusions as above. 5. Multifocal airspace consolidation is again seen throughout both lungs. ACT 112: Negative or not required by law. Electronically signed by: Federico Ruiz M.D. 09/26/2021 2:16 PM
[2021-09-26] MEDS ORDERED: ETOMIDATE 2 MG/ML 20 ML VIAL IV ONE (16:53)
[2021-09-26 17:55] LABS: iSTAT Art Bld Gas pCO2 Correct 56 mmHg (35-46); iSTAT Art Bld Gas pH Corrected 7.262 (7.35-7.45); iSTAT Arterial Blood Gas HCO3 26 meg/L (19-24); iSTAT Arterial Blood Gas pCO2 58 mmHg (35-46); iSTAT Arterial Blood Gas pH 7.25 (7.35-7.45); iSTAT Arterial Blood Gas pO2 75 mmHg (80-95); iSTAT Arterial Blood Gas pO2 C 72; iSTAT Carbon Dioxide 27 mmol/L (24-31); iSTAT FiO2 80 %; iSTAT Hematocrit 34 % (37-47); iSTAT Hemoglobin 11.6 g/dl (12.0-16.0); iSTAT Potassium 3.7 mmol/L (3.3-5.0); iSTAT Site Art Line; iSTAT Sodium 141 mmol/L (135-144)
[2021-09-26] MEDS: NOREPINEPHRINE/D5W 8 MG/508 ML BAG IV SCH ×2 (18:30→18:59)
[2021-09-27 05:14] LABS: iSTAT Art Bld Gas pCO2 Correct 41 mmHg (35-46); iSTAT Art Bld Gas pH Corrected 7.389 (7.35-7.45); iSTAT Arterial Blood Gas HCO3 24 meg/L (19-24); iSTAT Arterial Blood Gas pCO2 40 mmHg (35-46); iSTAT Arterial Blood Gas pO2 76 mmHg (80-95); iSTAT Arterial Blood Gas pO2 C 80; iSTAT Carbon Dioxide 26 mmol/L (24-31); iSTAT FiO2 40 %; iSTAT Hematocrit 29 % (37-47); iSTAT Hemoglobin 9.9 g/dl (12.0-16.0); iSTAT Potassium 3.6 mmol/L (3.3-5.0); iSTAT Site Art Line; iSTAT Sodium 141 mmol/L (135-144)
[2021-09-27] MEDS: PIPERACILLIN/TAZOBACTAM 3.375 GM in DEXTROSE 5% 100 ML IV SCH ×3 (05:27→20:14)
[2021-09-27] MEDS: LEVOTHYROXINE SODIUM 50 MCG TABLET PO SCH (05:34)
[2021-09-27 05:38] LABS: Basophils # (auto) 0.01 K/uL (0-0.2); Basophils % (auto) 0.1 %; Eosinophils # (auto) 0.17 K/uL (0-0.5); Eosinophils % (auto) 1.5 %; Hematocrit (blood only) 32.1 % (37-47); Hemoglobin 10.4 g/dL (12.0-16.0); Immature Granulocytes # (auto) 0.07 K/uL (0.00-0.02); Immature Granulocytes % (auto) 0.6 %; Lymphocytes # (auto) 1.08 K/uL (1.2-3.4); Lymphocytes % (auto) 9.5 %; Mean Corpuscular Hemoglobin 31.4 pg (25-34); Mean Corpuscular Hgb Conc 32.4 g/dL (32-36); Mean Platelet Volume 10.3 fL (7.4-10.4); Monocytes % (auto) 3.5 %; Neutrophils # (auto) 9.63 K/uL (1.4-6.5); Neutrophils % (auto) 84.8 %; Platelet Count 179 K/uL (130-400); RDW Coefficient of Variation 14.5 % (11.5-14.5); RDW Standard Deviation 51.8 fL (36.4-46.3); Red Blood Count 3.31 M/uL (4.2-5.4); White Blood Count 11.36 K/uL (4.8-10.8)
[2021-09-27] MEDS: propofoL 1,000 MG/100 ML VIAL IV SCH (05:59)
[2021-09-27 06:05] LABS: BUN Creatinine Ratio 29.9 (10-20); Calcium 7.6 mg/dl (8.5-10.1); Creatinine Clr Calc Pharmacy 42.6 ml/min; Magnesium 2.2 mg/dl (1.7-2.4); Phosphorus 3.3 mg/dl (2.5-4.9); Potassium 3.6 mmol/L (3.5-5.1)
--- NOTE | 2021-09-27 07:22 | Hospitalist Progress Note ---
Date of Service September 27, 2021 Assessment & Plan (1) Cardiac arrest: Plan: Remains in the ICU with intubation ventilation after failing extubation on 09/26 for 4 hours was reintubated, sedation continues. remains in sinus rhythm usually needing vasopressor support Echocardiogram shows preserved ejection fraction and wall motion abnormality with right-sided elevated pressures likely consistent with her chronic smoking. Mild troponin leak could be from cardiac contusion from CPR or from shock did require pressors for period of time was unconscious s/p cardiac arrest with external cooling now reversed (2) Pneumonia: Plan: Right lower lobe pneumonia with loculated pleural effusion at the right base consistent possibly with aspiration or gram-negative pneumonia patient be continued on Zosyn therapy. 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, noted by Dr Alexander with watchful waiting (3) Person under investigation for COVID-19: Plan: was notified by nursing staff that pts roommate tested positive for COVID, will have isolation as PUI, did inform (4) Heart failure: Plan: Heart failure has been ruled out (5) COPD (chronic obstructive pulmonary disease): Plan: Medically treat acute exacerbation is at this time Umeclidinium inhaled via vent (6) Depression: Plan: Continue BuSpar fluoxetine which seems stable (7) History of breast cancer: Plan: History of bilateral mastectomy in 2011 certainly raises concern with this loculated effusion, continue anastrozole (8) Hypothyroidism: Plan: Continue Synthroid therapy (9) T2DM (type 2 diabetes mellitus): Plan: Hold Farxiga glipizide check hemoglobin A1c have insulin sliding scale we will not add glargine unless we need to holding lisinopril at this time (10) DVT prophylaxis: Plan: Heparin for DVT prevention Patient and her confirms she is a full code prior to admission however after cardiac arrest was made a conditional code Admission and Anticipated Discharge Date Admission Date: September 23, 2021 Subjective Patient is sedated and ventilated requiring some pressors on 09/27/2021 Review of Systems Review of Systems: Unobtainable due to cognitive status and Unobtainable due to endotracheal tube Physical Exam Physical Exam: The patient appeared critically ill with support on ventilator Vital signs as documented. Head exam is normocephalic atraumatic Neck is without JVD, thyromegaly, or carotid bruits. Lungs are coarse with bilateral breath sounds chest tube drainage is in place in the right lung Cardiac exam, Rhythm is regular.. No murmurs, rubs or gallops. Abdominal exam reveals normal bowel sounds, soft Extremities are nonedematous and both pedal pulses are present Results & Data Results & Data ([facility]) Vital Signs (Past 12 Hours) Vital Signs Temp Pulse Resp Pulse Ox 09/27/21 06:15 99.5 F 98 H 18 94 09/27/21 06:00 99.7 F H 99 H 17 92 09/27/21 05:45 99.5 F 95 H 19 93 09/27/21 05:30 99.5 F 96 H 17 94 09/27/21 05:15 99.7 F H 95 H 17 94 09/27/21 05:00 99.7 F H 96 H 16 93 09/27/21 04:45 99.7 F H 93 H 17 93 09/27/21 04:30 99.5 F 93 H 18 93 09/27/21 04:15 99.5 F 94 H 18 93 09/27/21 04:00 99.5 F 93 H 19 94 09/27/21 03:45 99.5 F 93 H 17 94 09/27/21 03:30 99.7 F H 92 H 19 93 09/27/21 03:15 99.7 F H 93 H 16 93 09/27/21 03:00 99.5 F 92 H 18 90 09/27/21 02:45 99.5 F 96 H 18 89 L 09/27/21 02:30 99.5 F 95 H 14 91 09/27/21 02:15 99.5 F 94 H 18 94 09/27/21 02:10 97 H 26 H 92 09/27/21 02:00 99.5 F 94 H 17 94 09/27/21 01:45 99.5 F 94 H 18 94 09/27/21 01:30 99.3 F 95 H 17 94 09/27/21 01:15 99.3 F 93 H 17 93 09/27/21 01:00 99.5 F 94 H 15 93 09/27/21 00:45 99.3 F 96 H 16 92 09/27/21 00:30 99.3 F 102 H 22 92 09/27/21 00:15 99.3 F 96 H 18 93 09/27/21 00:00 99.1 F 96 H 16 93 09/26/21 23:45 99.1 F 96 H 18 93 09/26/21 23:30 99.1 F 97 H 16 92 09/26/21 23:15 99.1 F 97 H 16 95 09/26/21 23:05 86 24 90 09/26/21 23:00 99.1 F 99 H 16 94 09/26/21 22:45 99.1 F 102 H 14 94 09/26/21 22:30 99.1 F 119 H 21 87 L 09/26/21 22:15 99.1 F 101 H 15 94 09/26/21 22:00 99.1 F 95 H 17 94 09/26/21 21:45 99.0 F 96 H 15 94 09/26/21 21:30 99.0 F 96 H 18 94 09/26/21 21:15 98.8 F 97 H 15 95 09/26/21 21:00 98.8 F 98 H 18 94 09/26/21 20:45 98.6 F 109 H 15 92 09/26/21 20:30 98.4 F 100 H 22 93 09/26/21 20:15 98.4 F 89 19 97 09/26/21 20:00 98.2 F 105 H 19 97 09/26/21 19:45 98.1 F 86 17 97 09/26/21 19:30 98.1 F 93 H 16 97 PG Care Time/CCT Total # of Minutes Spent Total Time Spent with Patient: Total time spent is greater than 50% in coordination of care (as documented) at patient's floor/unit and/or counseling patient: Coding Level of Care Code 83336 Subseq Hosp Care Lvl 2 Diagnoses Cardiac arrest I46.9 Pneumonia J18.9 Person under investigation for COVID-19 Z20.822 Heart failure I50.9 COPD (chronic obstructive pulmonary disease) J44.9 Depression F32.9 History of breast cancer Z85.3 Hypothyroidism E03.9 T2DM (type 2 diabetes mellitus) E11.9 DVT prophylaxis Z29.9
[2021-09-27] MEDS: ALBUT/IPRATROP 3MG/0.5MG NEB 3 ML VIAL NEB SCH ×2 (07:36→20:48)
--- NOTE | 2021-09-27 07:54 | XRay Report ---
XR chest 1V portable CLINICAL HISTORY: f/u COMPARISON STUDY: Chest CT September 24, 2021. Chest radiograph September 26, 2021 at 2:05 PM. FINDINGS: Tip of endotracheal tube is 1 cm above the delonte. Right internal jugular central line rui ins in place. A right pleural catheter is in place. There is no pneumothorax. Small residual right pl eural effusion. Extensive left lung airspace opacity persists. Right lung airspace opacities are also similar to prior exam. Right axillary surgical clips are present. IMPRESSION: 1. Tip of endotracheal tube 1 cm above the delonte. 2. Right pleural catheter in place. No pneumothorax. Small right pleural effusion. 3. No change in extensive left lung and mild right lung airspace opacities. ACT 112: Negative or not required by law. Electronically signed by: Tremaine See M.D. 09/27/2021 7:53 AM
[2021-09-27] MEDS: HEPARIN SOD 5,000 UNIT/0.5 ML VIAL SQ SCH ×2 (08:24→20:13)
[2021-09-27] MEDS: FAMOTIDINE 20 MG in SYRINGE 3 ML IV SCH (08:24)
[2021-09-27] MEDS: LIDOCAINE 5% 1 PATCH TD SCH (08:24)
[2021-09-27] MEDS: UMECLIDINIUM BROMIDE 62.5MCG/BLISTER 7 PUFFS/INHALER INH SCH (08:25)
[2021-09-27] MEDS: FLUoxetine HCL 20 MG/5 ML 120ML BTL PO SCH (08:25)
[2021-09-27] MEDS ORDERED: STAT IV Infusion **Titration per Protocol STA (08:36)
[2021-09-27] MEDS: DEXMEDETOMIDINE HCL 200 MCG in SODIUM CHLORIDE 0.9% 48 ML IV SCH ×4 (08:58→22:29)
[2021-09-27] MEDS: NOREPINEPHRINE/D5W 8 MG/508 ML BAG IV SCH (09:14)
[2021-09-27] MEDS ORDERED: POTASSIUM CHLORIDE 20 MEQ/15 ML UDC PO STA (09:58)
--- NOTE | 2021-09-27 10:46 | XRay Report ---
KUB HISTORY: Status post placement of an enteric tube OG tube placement COMPARISON: Chest radiograph of same day FINDINGS: Bowel gas pattern is nonobstructive. The lower pelvis is excluded from the [id number]. E nteric tube is present with distal tip projected over the gastric body, side port near the gastric ca rdia. Pigtail catheter projects over the right lung base. Mild subcutaneous emphysema of the right la teral chest wall with adjacent surgical clips. Bilateral multifocal pulmonary opacities. No renal ca lculi. No ureteral calculi. No pneumoperitoneum or pneumatosis. No fracture. IMPRESSION: Distal tip of enteric tube projects over the gastric body. ACT 112: Negative or not required by law. The above report was generated using voice recognition software. It may contain grammatical, syntax o r spelling errors. Electronically signed by: Carlos Lacey M.D. 09/27/2021 10:45 AM
[2021-09-27] MEDS: INSULIN REGULAR 250 UNITS in SODIUM CHLORIDE 0.9% 247.5 ML IV SCH (12:50)
--- NOTE | 2021-09-27 14:31 | Critical Care Progress Note ---
Date of Service September 27, 2021 Assessment & Plan (1) Cardiac arrest: (2) Heart failure: (3) Pleural effusion: (4) Aspiration pneumonia: (5) ARDS (adult respiratory distress syndrome): (6) Pneumothorax: Plan: Neurologic: Unfortunately, she was reintubated on 09/26 2 hours after extubation due to encephalopathy and hypoxia. She was able to follow commands post extubation. We will try to minimize sedation to a goal RASS of 0 to -1. Per downtime after cardiac arrest was only approximately 6 minutes. She did follow commands post extubation on 09/26. CT head negative for acute disease post cardiac arrest 09/24. Chronic lacunar infarcts identified. Will consider MRI of brain to eval for anoxic injury. Pulmonary: Patient with continued hypoxemic respiratory failure and left-sided infiltrates. The pneumothorax on the right appears to have resolved and there is no significant air leak. We will place the patient on waterseal repeat chest x-ray tomorrow. Pleural fluid cytology is negative for malignancy. Cultures negative thus far from the pleural fluid. Sputum cultures with pinpoint growth 09/25. She did not qualify for spontaneous breathing trial today. Will discuss with family with regards to their goals of care for the patient. Cardiovascular: Echo with an LVEF that is normal. RVSP 30-40. Moderate mitral annular calcification. Hypothermia process complete. Continue maintain mean arterial pressure above 65 mmHg. Gastrointestinal: Restart tube feeds. LFT stable from 09/26. Renal: No significant issues. Monitor urine output closely. No significant issues. Replace potassium as needed. Infectious disease: Cultures negative to date from blood and pleural fluid. MRSA screen negative. Procal elevated to 4.58 09/25. Will repeat procal today. Leukocytosis improving. Continue Zosyn empirically. Pinpoint growth noted from sputum cultures as noted above. Hematologic: No significant issues at present. Mild hemodilution minimal anemia likely. Endocrine: ICU hypoglycemia protocol Lines and tubes: Intubated 09/24/2021. Left radial art line in place 09/24, IJ in place 09/24. Right pigtail catheter placed 09/25/2021. VTE prophylaxis: Lovenox 40 mg daily. CODE STATUS: DNR, but okay with vent. Prognosis continues to be very guarded. We will continue to have discussion with family. Family at bedside: Non available at bedside presently. Disposition: Remain in the ICU. I have personally spent 52 minutes of critical care time in the direct management of this patient. This is a life/limb threatening event. This includes time spent evaluating patient, direct bedside care, chart review, placing orders, interpretation of diagnostic studies, discussion with consultants, patient, and family members, as well as other required patient management activities. This time is exclusive of all separately billable procedures, and teaching time and separate from and in addition to any other critical care service time. Thank you for allowing us to participate in the care of this patient. Admission and Anticipated Discharge Date Admission Date: September 23, 2021 Subjective Patient seen and examined. She was emergently reintubated yesterday about 2 hours after extubation due to worsening respiratory failure and encephalopathy. This morning she had increasing tachypnea and hypertension with weaning of sedation. No significant hemodynamic compromise otherwise. Review of Systems Review of Systems: Unobtainable due to endotracheal tube and Unobtainable due to reduced consciousness Physical Exam Physical Exam: Constitutional: Intubated and sedated. When sedation is weaned she becomes very agitated. Eyes: Pupils are equal round and reactive to light. Conjunctivae are normal. Anicteric sclera. Ears nose, mouth and throat: Endotracheal tube in place. Neck: Trachea is midline. Visual inspection is normal. Respiratory: Coarse breath sounds bilaterally. Pigtail catheter in place on the right. Cardiovascular: Tachycardic. No murmurs. Minimal edema. Gastrointestinal: Normal bowel sounds, soft, nontender and nondistended. No hepatosplenomegaly noted. Musculoskeletal: Extremities intact. Cyanotic. Skin: No rashes, warm dry and intact. Neurologic: Nonfocal. Moves limbs spontaneously. Psychiatric: Unable to assess. Results & Data Results & Data ([facility]) Vital Signs (Past 12 Hours) Vital Signs Temp Pulse Resp BP Pulse Ox 09/27/21 12:00 113/42 L 09/27/21 11:00 37.7 C H 88 20 102/50 L 09/27/21 10:00 38.0 C H 107 H 21 94 09/27/21 09:00 37.8 C H 124 H 30 H 88 L 09/27/21 08:42 117 H 09/27/21 08:00 37.7 C H 95 H 19 95 09/27/21 07:37 90 25 H 94 09/27/21 07:00 37.5 C 91 H 18 94 09/27/21 06:15 37.5 C 98 H 18 94 09/27/21 06:00 37.6 C H 99 H 17 92 09/27/21 05:45 37.5 C 95 H 19 93 09/27/21 05:30 37.5 C 96 H 17 94 09/27/21 05:15 37.6 C H 95 H 17 94 09/27/21 05:00 37.6 C H 96 H 16 93 09/27/21 04:45 37.6 C H 93 H 17 93 09/27/21 04:30 37.5 C 93 H 18 93 09/27/21 04:15 37.5 C 94 H 18 93 09/27/21 04:00 37.5 C 93 H 19 94 09/27/21 03:45 37.5 C 93 H 17 94 09/27/21 03:30 37.6 C H 92 H 19 93 09/27/21 03:15 37.6 C H 93 H 16 93 09/27/21 03:00 37.5 C 92 H 18 90 09/27/21 02:45 37.5 C 96 H 18 89 L 09/27/21 02:30 37.5 C 95 H 14 91 vital signs, labs and imaging reviewed. Right pleural catheter in place on chest x-ray with persistent infiltrates in the left lung Coding Level of Care Code Critical Care 1st 30-74 mins Diagnoses Cardiac arrest I46.9 Heart failure I50.9 Pleural effusion J90 Aspiration pneumonia J69.0 ARDS (adult respiratory distress syndrome) J80 Pneumothorax J93.9 Time Spent (min) 52
[2021-09-27] MEDS: TUBE FEEDING WATER FLUSH OG SCH ×3 (15:34→22:30)
[2021-09-27] MEDS: ENOXAPARIN INJ 40 MG/0.4 ML SYR SQ SCH (15:43)
[2021-09-27] MEDS: PEPTAMEN INTENSE VHP 1.0 CAL 1,000 ML BAG OG SCH (15:43)
[2021-09-27] MEDS: ICU ELECTROLYTE REPLACEMENT PROTOCOL SCH (16:51)
[2021-09-28] MEDS: TUBE FEEDING WATER FLUSH OG SCH ×6 (01:56→22:56)
[2021-09-28] MEDS: INSULIN REGULAR 250 UNITS in SODIUM CHLORIDE 0.9% 247.5 ML IV SCH ×3 (02:03→20:53)
[2021-09-28] MEDS: DEXMEDETOMIDINE HCL 200 MCG in SODIUM CHLORIDE 0.9% 48 ML IV SCH ×11 (02:04→23:56)
[2021-09-28] MEDS: PIPERACILLIN/TAZOBACTAM 3.375 GM in DEXTROSE 5% 100 ML IV SCH ×3 (04:10→20:32)
[2021-09-28] MEDS: fentaNYL citrate 2,500 MCG/250 ML BAG IV SCH (04:11)
[2021-09-28] MEDS: LEVOTHYROXINE SODIUM 50 MCG TABLET PO SCH (05:20)
[2021-09-28 05:40] LABS: Basophils # (auto) 0.02 K/uL (0-0.2); Basophils % (auto) 0.2 %; Eosinophils # (auto) 0.09 K/uL (0-0.5); Hematocrit (blood only) 32.1 % (37-47); Hemoglobin 10.2 g/dL (12.0-16.0); Immature Granulocytes # (auto) 0.08 K/uL (0.00-0.02); Immature Granulocytes % (auto) 0.9 %; Lymphocytes # (auto) 0.88 K/uL (1.2-3.4); Lymphocytes % (auto) 9.4 %; Mean Corpuscular Hemoglobin 31.1 pg (25-34); Mean Corpuscular Hgb Conc 31.8 g/dL (32-36); Mean Corpuscular Volume 97.9 fL (80-100); Mean Platelet Volume 10.2 fL (7.4-10.4); Monocytes # (auto) 0.53 K/uL (0.11-0.59); Monocytes % (auto) 5.7 %; Neutrophils # (auto) 7.76 K/uL (1.4-6.5); Neutrophils % (auto) 82.8 %; Platelet Count 144 K/uL (130-400); RDW Coefficient of Variation 14.1 % (11.5-14.5); RDW Standard Deviation 50.5 fL (36.4-46.3); Red Blood Count 3.28 M/uL (4.2-5.4); White Blood Count 9.36 K/uL (4.8-10.8)
[2021-09-28 06:01] LABS: BUN Creatinine Ratio 32.4 (10-20); Calcium 7.5 mg/dl (8.5-10.1); Creatinine Clr Calc Pharmacy 41.1 ml/min; Est GFR (African American) 55.5 ml/min; Est GFR (Non-African American) 47.9 ml/min; Magnesium 2.2 mg/dl (1.7-2.4); Phosphorus 3.2 mg/dl (2.5-4.9)
[2021-09-28] MEDS: ICU ELECTROLYTE REPLACEMENT PROTOCOL SCH ×2 (06:03→17:42)
[2021-09-28] MEDS: ALBUT/IPRATROP 3MG/0.5MG NEB 3 ML VIAL NEB SCH (07:56)
[2021-09-28] MEDS: ENOXAPARIN INJ 40 MG/0.4 ML SYR SQ SCH (07:59)
[2021-09-28] MEDS: MULTI VIT W/MINERALS LIQUID 15 ML UDP NG SCH (08:00)
[2021-09-28] MEDS: FLUoxetine HCL 20 MG/5 ML 120ML BTL PO SCH (08:00)
[2021-09-28] MEDS: LIDOCAINE 5% 1 PATCH TD SCH (08:00)
[2021-09-28] MEDS: UMECLIDINIUM BROMIDE 62.5MCG/BLISTER 7 PUFFS/INHALER INH SCH (08:01)
[2021-09-28] MEDS: FAMOTIDINE 20 MG in SYRINGE 3 ML IV SCH (08:03)
--- NOTE | 2021-09-28 09:59 | XRay Report ---
XR chest 1V portable HISTORY: 75 years-old Female follow up ptx acute respiratory failure COMPARISON: Chest radiograph 09/27/2021 TECHNIQUE: Portable AP view of the chest FINDINGS: Endotracheal tube overlies the midline, 1.5 cm superior to the delonte. Right IJ central venous cathet er distal tip projects over the inferior SVC. Enteric tube courses below the diaphragm outside the fi eld-of-view. Pigtail catheter projects over the right lung base. Surgical clips of the right lateral chest wall. Degenerative changes of the shoulders and spine. Small pleural effusions. Interstitial co arsening with left greater than right airspace opacities redemonstrated. No definite pneumothorax lucinda ntified. IMPRESSION: 1. Lines and tubes as above. No pneumothorax identified. 2. Suggested small pleural effusions. 3. Extensive left lung predominant airspace opacities appear stable. ACT 112: Negative or not required by law. The above report was generated using voice recognition software. It may contain grammatical, syntax o r spelling errors. Electronically signed by: Carlos Lacey M.D. 09/28/2021 9:58 AM
--- NOTE | 2021-09-28 10:16 | Critical Care Progress Note ---
Date of Service September 28, 2021 Assessment & Plan (1) Cardiac arrest: (2) Heart failure: (3) Pleural effusion: (4) Aspiration pneumonia: (5) ARDS (adult respiratory distress syndrome): (6) Pneumothorax: Plan: Neurologic: Unfortunately, she was reintubated on 09/26, 2 hours after extubation due to encephalopathy and hypoxia. She was able to follow commands post extubation. We will try to minimize sedation to a goal RASS of 0 to -1. Her downtime after cardiac arrest was only approximately 6 minutes. She did follow commands post extubation on 09/26. CT head negative for acute disease post cardiac arrest 09/24. Chronic lacunar infarcts identified. Will consider MRI of brain to eval for anoxic injury. Pulmonary: Patient with continued hypoxemic respiratory failure and extensive left-sided infiltrates. Suspect degree of pulmonary contusions and likely aspiration pneumonia. Continue broad-spectrum antibiotics. The pneumothorax on the right appears to have resolved and there is no significant air leak. Right pigtail catheter on waterseal overnight. Will clamp the chest tube and repeat a chest x-ray tomorrow. If no pneumothorax, will remove the chest tube. Pleural fluid cytology is negative for malignancy. Cultures negative thus far from the pleural fluid. Sputum cultures with pinpoint growth 09/25. Currently on a spontaneous breathing trial, but borderline given tachypnea and altered mental status. Family wishes to continue with ventilator at this time. Cardiovascular: Echo with an LVEF that is normal. RVSP 30-40. Moderate mitral annular calcification. Hypothermia process complete. Continue maintain mean arterial pressure above 65 mmHg. Gastrointestinal: Continue tube feeds. LFT stable from 09/26. Renal: No significant issues. Monitor urine output closely. No significant issues. Replace potassium as needed. Infectious disease: Cultures negative to date from blood and pleural fluid. MRSA screen negative. Procal 4.58/09/25 >>1.84/09/27. Leukocytosis resolved. Continue Zosyn empirically. Pinpoint growth noted from sputum cultures as noted above. Hematologic: No significant issues at present. Hgb stable. Endocrine: ICU hypoglycemia protocol Lines and tubes: Intubated 09/24/2021. Left radial art line in place 09/24, IJ in place 09/24. Right pigtail catheter placed 09/25/2021. VTE prophylaxis: Lovenox 40 mg daily. CODE STATUS: DNR, but okay with vent. Prognosis continues to be very guarded. We will continue to have discussion with family. Family at bedside: Non available at bedside presently. Updated extensively 09/27 Disposition: Remain in the ICU. I have personally spent 39 minutes of critical care time in the direct management of this patient. This is a life/limb threatening event. This includes time spent evaluating patient, direct bedside care, chart review, placing orders, interpretation of diagnostic studies, discussion with consultants, patient, and family members, as well as other required patient management activities. This time is exclusive of all separately billable procedures, and teaching time and separate from and in addition to any other critical care service time. Thank you for allowing us to participate in the care of this patient. Admission and Anticipated Discharge Date Admission Date: September 23, 2021 Subjective Fentanyl paused. Currently on spontaneous breathing trial. Minimally responsive to commands while on Precedex this morning. Requiring low doses of vasopressors. Review of Systems Review of Systems: Unobtainable due to endotracheal tube and Unobtainable due to reduced consciousness Physical Exam Physical Exam: Constitutional: Intubated and sedated. When sedation is weaned she becomes very agitated. Eyes: Pupils are equal round and reactive to light. Conjunctivae are normal. Anicteric sclera. Ears nose, mouth and throat: Endotracheal tube in place. Neck: Trachea is midline. Visual inspection is normal. Respiratory: Coarse breath sounds bilaterally. Pigtail catheter in place on the right. Cardiovascular: Tachycardic. No murmurs. Minimal edema. Gastrointestinal: Normal bowel sounds, soft, nontender and nondistended. No hepatosplenomegaly noted. Musculoskeletal: Extremities intact. Skin: No rashes, warm dry and intact. Neurologic: Nonfocal. Moves limbs spontaneously. Psychiatric: Unable to assess. Results & Data Results & Data ([facility]) Vital Signs (Past 12 Hours) Vital Signs Temp Pulse Resp BP Pulse Ox 09/28/21 08:40 77 17 89 L 09/28/21 07:50 69 26 H 90 09/28/21 05:45 37.6 C H 84 15 88 L 09/28/21 05:30 37.6 C H 73 18 106/52 L 09/28/21 05:15 37.6 C H 73 19 89 L 09/28/21 05:01 37.6 C H 102 H 29 H 166/94 H 84 L 09/28/21 04:48 74 26 H 94 09/28/21 04:45 37.5 C 73 17 95 09/28/21 04:30 37.5 C 73 17 124/62 09/28/21 04:15 37.6 C H 73 19 95 09/28/21 04:00 37.5 C 86 19 138/60 09/28/21 03:45 37.6 C H 77 17 95 09/28/21 03:30 37.6 C H 87 19 135/71 09/28/21 03:15 37.6 C H 75 18 94 09/28/21 03:00 37.6 C H 76 18 124/59 L 09/28/21 02:45 37.6 C H 76 20 93 09/28/21 02:30 37.6 C H 77 19 127/56 L 09/28/21 02:15 37.6 C H 77 17 93 09/28/21 02:00 37.6 C H 75 18 122/56 L 09/28/21 01:45 37.5 C 80 17 93 09/28/21 01:30 37.5 C 77 18 122/60 09/28/21 01:15 37.5 C 88 15 94 09/28/21 01:00 37.5 C 76 16 122/60 09/28/21 00:45 37.5 C 91 H 16 92 09/28/21 00:30 37.5 C 89 20 140/75 89 L 09/28/21 00:19 90 27 H 93 09/28/21 00:15 37.5 C 82 20 93 09/28/21 00:00 37.5 C 86 20 122/56 L 09/27/21 23:45 37.5 C 89 21 92 09/27/21 23:30 37.5 C 91 H 20 111/59 L 09/27/21 23:15 37.5 C 90 23 91 09/27/21 23:00 37.5 C 85 23 106/49 L 09/27/21 22:45 37.5 C 86 21 90 09/27/21 22:30 37.5 C 94 H 24 128/65 09/27/21 22:15 37.5 C 94 H 23 88 L Coding Level of Care Code Critical Care 1st 30-74 mins Diagnoses Cardiac arrest I46.9 Heart failure I50.9 Pleural effusion J90 Aspiration pneumonia J69.0 ARDS (adult respiratory distress syndrome) J80 Pneumothorax J93.9 Time Spent (min) 39
--- NOTE | 2021-09-28 14:41 | Hospitalist Progress Note ---
Date of Service September 28, 2021 Assessment & Plan (1) Cardiac arrest: Plan: Remains in the ICU with intubation ventilation after failing extubation on 09/26 for 4 hours was reintubated, sedation continues. Echocardiogram shows preserved ejection fraction and wall motion abnormality with right-sided elevated pressures likely consistent with her chronic smoking. Mild troponin leak could be from cardiac contusion from CPR or from shock did require pressors for period of time was unconscious s/p cardiac arrest with external cooling now reversed she was following commands after her arrest and on 09/26 when she failed extubation guarded prognosis, she is DNR but family wants ventilator (2) Pneumonia: Plan: Right lower lobe pneumonia with loculated pleural effusion at the right base consistent possibly with aspiration or gram-negative pneumonia patient be continued on Zosyn therapy. 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, noted by Dr Alexander with watchful waiting (3) Person under investigation for COVID-19: Plan: COVID negative (4) Heart failure: Plan: Heart failure has been ruled out (5) COPD (chronic obstructive pulmonary disease): Plan: Medically treat acute exacerbation is at this time Umeclidinium inhaled via vent (6) Depression: Plan: Continue BuSpar fluoxetine which seems stable (7) History of breast cancer: Plan: History of bilateral mastectomy in 2011 certainly raises concern with this loculated effusion, continue anastrozole (8) Hypothyroidism: Plan: Continue Synthroid therapy (9) T2DM (type 2 diabetes mellitus): Plan: Hold Farxiga glipizide check hemoglobin A1c have insulin sliding scale we will not add glargine unless we need to holding lisinopril at this time (10) DVT prophylaxis: Plan: Heparin for DVT prevention Patient and her confirms she is a full code prior to admission however after cardiac arrest was made a conditional code Admission and Anticipated Discharge Date Admission Date: September 23, 2021 Subjective reviewed chart and labs appreciate ICU management of patient SBT today but was tachypneic and altered mental status, remain on ventilator WBC normal, Hb and Cr stable no family at the bedside this afternoon Review of Systems Review of Systems: Unobtainable due to cognitive status and Unobtainable due to endotracheal tube Physical Exam Physical Exam: General: well developed, well nourished, intubated and ventilated Neck: supple, trachea midline, normal thyroid Lungs: coarse sounds on left, clear on right, ventilated, right sided chest tube Heart: regular S1 and S2, no murmur, peripheral pulses normal, capillary refill normal, no edema Abdomen: soft, NT, ND, + BS, no hepatomegaly, normal to percussion Extremities: normal in appearance, no cyanosis, no petechiae Neuro: sedated, moves all extremities, no focal motor deficits, CN II-XII intact Skin: warm, dry, no rash, normal turgor Psych: sedated Results & Data Results & Data ([facility]) Vital Signs (Past 12 Hours) Vital Signs Temp Pulse Resp BP Pulse Ox 09/28/21 12:30 37.7 C H 72 18 121/58 L 88 L 09/28/21 12:00 37.7 C H 70 17 104/53 L 87 L 09/28/21 11:30 37.6 C H 72 19 106/56 L 88 L 09/28/21 11:15 68 19 89 L 09/28/21 11:00 37.5 C 70 15 103/51 L 88 L 09/28/21 10:30 37.5 C 70 8 L 104/52 L 09/28/21 10:00 37.4 C 71 15 09/28/21 09:30 37.4 C 88 15 115/56 L 88 L 09/28/21 09:00 37.3 C 78 15 87 L 09/28/21 08:40 77 17 89 L 09/28/21 08:00 37.4 C 69 17 107/52 L 09/28/21 07:50 69 26 H 90 09/28/21 07:00 37.4 C 69 18 09/28/21 05:45 37.6 C H 84 15 88 L 09/28/21 05:30 37.6 C H 73 18 106/52 L 09/28/21 05:15 37.6 C H 73 19 89 L 09/28/21 05:01 37.6 C H 102 H 29 H 166/94 H 84 L 09/28/21 04:48 74 26 H 94 09/28/21 04:45 37.5 C 73 17 95 09/28/21 04:30 37.5 C 73 17 124/62 09/28/21 04:15 37.6 C H 73 19 95 09/28/21 04:00 37.5 C 86 19 138/60 09/28/21 03:45 37.6 C H 77 17 95 09/28/21 03:30 37.6 C H 87 19 135/71 09/28/21 03:15 37.6 C H 75 18 94 09/28/21 03:00 37.6 C H 76 18 124/59 L 09/28/21 02:45 37.6 C H 76 20 93 Laboratory Results Laboratory Results - last 24 hr 09/27/21 09/27/21 09/27/21 15:04 16:39 17:32 WBC RBC Hgb Hct MCV MCH MCHC RDW Std Deviation RDW Coeff of Vishal Plt Count MPV Immature Gran % (Auto) Neut % (Auto) Lymph % (Auto) Hyde % (Auto) Eos % (Auto) Baso % (Auto) Neut # (Auto) Lymph # (Auto) Hyde # (Auto) Eos # (Auto) Baso # (Auto) Immature Gran # (Auto) Sodium Potassium Chloride Carbon Dioxide Anion Gap BUN Creatinine Est Cr Clr Drug Dosing Est GFR ( Amer) Est GFR (Non-Af Amer) BUN/Creatinine Ratio Glucose POC Glucose POC Glucose (other) 113 H 110 H Calcium Phosphorus Magnesium Procalcitonin 1.84 H 09/27/21 09/27/21 09/27/21 19:17 20:13 21:22 WBC RBC Hgb Hct MCV MCH MCHC RDW Std Deviation RDW Coeff of Vishal Plt Count MPV Immature Gran % (Auto) Neut % (Auto) Lymph % (Auto) Hyde % (Auto) Eos % (Auto) Baso % (Auto) Neut # (Auto) Lymph # (Auto) Hyde # (Auto) Eos # (Auto) Baso # (Auto) Immature Gran # (Auto) Sodium Potassium Chloride Carbon Dioxide Anion Gap BUN Creatinine Est Cr Clr Drug Dosing Est GFR ( Amer) Est GFR (Non-Af Amer) BUN/Creatinine Ratio Glucose POC Glucose POC Glucose (other) 129 H 140 H 154 H Calcium Phosphorus Magnesium Procalcitonin 09/27/21 09/27/21 09/28/21 22:09 23:27 00:51 WBC RBC Hgb Hct MCV MCH MCHC RDW Std Deviation RDW Coeff of Vishal Plt Count MPV Immature Gran % (Auto) Neut % (Auto) Lymph % (Auto) Hyde % (Auto) Eos % (Auto) Baso % (Auto) Neut # (Auto) Lymph # (Auto) Hyde # (Auto) Eos # (Auto) Baso # (Auto) Immature Gran # (Auto) Sodium Potassium Chloride Carbon Dioxide Anion Gap BUN Creatinine Est Cr Clr Drug Dosing Est GFR ( Amer) Est GFR (Non-Af Amer) BUN/Creatinine Ratio Glucose POC Glucose POC Glucose (other) 163 H 176 H 194 H Calcium Phosphorus Magnesium Procalcitonin 09/28/21 09/28/21 09/28/21 01:52 02:48 04:08 WBC RBC Hgb Hct MCV MCH MCHC RDW Std Deviation RDW Coeff of Vishal Plt Count MPV Immature Gran % (Auto) Neut % (Auto) Lymph % (Auto) Hyde % (Auto) Eos % (Auto) Baso % (Auto) Neut # (Auto) Lymph # (Auto) Hyde # (Auto) Eos # (Auto) Baso # (Auto) Immature Gran # (Auto) Sodium Potassium Chloride Carbon Dioxide Anion Gap BUN Creatinine Est Cr Clr Drug Dosing Est GFR ( Amer) Est GFR (Non-Af Amer) BUN/Creatinine Ratio Glucose POC Glucose POC Glucose (other) 199 H 197 H 198 H Calcium Phosphorus Magnesium Procalcitonin 09/28/21 09/28/21 09/28/21 05:14 05:19 05:19 WBC 9.36 RBC 3.28 L Hgb 10.2 L Hct 32.1 L MCV 97.9 MCH 31.1 MCHC 31.8 L RDW Std Deviation 50.5 H RDW Coeff of Vishal 14.1 Plt Count 144 MPV 10.2 Immature Gran % (Auto) 0.9 Neut % (Auto) 82.8 Lymph % (Auto) 9.4 Hyde % (Auto) 5.7 Eos % (Auto) 1.0 Baso % (Auto) 0.2 Neut # (Auto) 7.76 H Lymph # (Auto) 0.88 L Hyde # (Auto) 0.53 Eos # (Auto) 0.09 Baso # (Auto) 0.02 Immature Gran # (Auto) 0.08 H Sodium 139 Potassium 4.0 Chloride 109 H Carbon Dioxide 24 Anion Gap 6 BUN 36 H Creatinine 1.11 Est Cr Clr Drug Dosing 41.1 Est GFR ( Amer) 55.5 Est GFR (Non-Af Amer) 47.9 BUN/Creatinine Ratio 32.4 H Glucose 198 H POC Glucose POC Glucose (other) 198 H Calcium 7.5 L Phosphorus 3.2 Magnesium 2.2 Procalcitonin 09/28/21 09/28/21 09/28/21 06:24 07:12 08:06 WBC RBC Hgb Hct MCV MCH MCHC RDW Std Deviation RDW Coeff of Vishal Plt Count MPV Immature Gran % (Auto) Neut % (Auto) Lymph % (Auto) Hyde % (Auto) Eos % (Auto) Baso % (Auto) Neut # (Auto) Lymph # (Auto) Hyde # (Auto) Eos # (Auto) Baso # (Auto) Immature Gran # (Auto) Sodium Potassium Chloride Carbon Dioxide Anion Gap BUN Creatinine Est Cr Clr Drug Dosing Est GFR ( Amer) Est GFR (Non-Af Amer) BUN/Creatinine Ratio Glucose POC Glucose 199 H 185 H POC Glucose (other) 197 H Calcium Phosphorus Magnesium Procalcitonin 09/28/21 09/28/21 09/28/21 10:20 11:20 12:22 WBC RBC Hgb Hct MCV MCH MCHC RDW Std Deviation RDW Coeff of Vishal Plt Count MPV Immature Gran % (Auto) Neut % (Auto) Lymph % (Auto) Hyde % (Auto) Eos % (Auto) Baso % (Auto) Neut # (Auto) Lymph # (Auto) Hyde # (Auto) Eos # (Auto) Baso # (Auto) Immature Gran # (Auto) Sodium Potassium Chloride Carbon Dioxide Anion Gap BUN Creatinine Est Cr Clr Drug Dosing Est GFR ( Amer) Est GFR (Non-Af Amer) BUN/Creatinine Ratio Glucose POC Glucose 227 H 211 H 204 H POC Glucose (other) Calcium Phosphorus Magnesium Procalcitonin 09/28/21 09/28/21 13:23 14:27 WBC RBC Hgb Hct MCV MCH MCHC RDW Std Deviation RDW Coeff of Vishal Plt Count MPV Immature Gran % (Auto) Neut % (Auto) Lymph % (Auto) Hyde % (Auto) Eos % (Auto) Baso % (Auto) Neut # (Auto) Lymph # (Auto) Hyde # (Auto) Eos # (Auto) Baso # (Auto) Immature Gran # (Auto) Sodium Potassium Chloride Carbon Dioxide Anion Gap BUN Creatinine Est Cr Clr Drug Dosing Est GFR ( Amer) Est GFR (Non-Af Amer) BUN/Creatinine Ratio Glucose POC Glucose 188 H 164 H POC Glucose (other) Calcium Phosphorus Magnesium Procalcitonin Medications Administered Current Inpatient Medications Acetaminophen (Acetaminophen 500 Mg Tab) 1,000 mg PO Q6H PRN PRN Reason: pain -02/07 Stop: 10/23/21 15:07 Last Admin: 09/24/21 08:03 Dose: 1,000 mg Documented by: Acetaminophen (Acetaminophen 1000 Mg/100 Ml Iv) 1,000 mg IV Q6H PRN PRN Reason: Pain Stop: 09/29/21 10:21 Last Admin: 09/26/21 10:43 Dose: 1,000 mg Documented by: Al Hydrox/Mg Hydrox/Simethicone (Aluminum/Magnesium Susp 30 Ml Udc) 30 ml PO Q6H PRN PRN Reason: Dyspepsia Stop: 10/23/21 15:25 Albuterol (Albuterol Hfa 8 Gm Inhaler) 1 puffs INH Q4R PRN PRN Reason: shortness of breath or wheezing Stop: 10/23/21 11:47 Albuterol (Albut/Ipratrop 3mg/0.5mg Neb 3 Ml Vial) 3 ml NEB Q6R PRN; Protocol PRN Reason: Shortness Of Breath Or Wheezing Stop: 10/25/21 04:52 Albuterol (Albut/Ipratrop 3mg/0.5mg Neb 3 Ml Vial) 3 ml NEB BIDR NHUNG; Protocol Stop: 10/25/21 10:09 Last Admin: 09/28/21 07:56 Dose: 3 ml Documented by: Dextrose (Dextrose 50% 50 Ml Syringe) 25 - 50 ml IV UD PRN; Protocol PRN Reason: Hypoglycemia Protocol Stop: 10/23/21 11:47 Last Admin: 09/25/21 22:55 Dose: 50 ml Documented by: Enoxaparin Sodium (Enoxaparin Inj 40 Mg/0.4 Ml Syr) 40 mg SQ QAM NHUNG Stop: 10/27/21 14:59 Last Admin: 09/28/21 07:59 Dose: 40 mg Documented by: Fentanyl Citrate (Fentanyl Bolus From Bag) 50 mcg IV Q60M PRN PRN Reason: Pain or Agitation Stop: 10/10/21 13:45 Fluoxetine HCl (Fluoxetine Hcl 20 Mg/5 Ml 120ml Btl) 40 mg PO QAM [facility] Stop: 10/25/21 10:59 Last Admin: 09/28/21 08:00 Dose: 40 mg Documented by: Glucagon (Glucagon For Inj 1 Mg Vial) 1 mg SQ UD PRN; Protocol PRN Reason: Hypoglycemia Protocol Stop: 10/23/21 11:47 Glucose (Glucose 10 Tabs/Tube) 4 - 8 tabs PO UD PRN; Protocol PRN Reason: Hypoglycemia Protocol Stop: 10/23/21 11:47 Glucose (Glucose 40% Gel 15 Gm Tube) 15 - 30 gm PO UD PRN; Protocol PRN Reason: Hypoglycemia Protocol Stop: 10/23/21 11:47 Piperacillin Sod/Tazobactam (Sod 3.375 gm/ Dextrose) 115 mls @ 28.75 mls/hr IV Q8H NHUNG; Protocol Stop: 09/30/21 12:59 Last Admin: 09/28/21 13:33 Dose: 28.8 mls/hr Documented by: Insulin Human Regular 250 (units/ Sodium Chloride) 250 mls @ 4.1 mls/hr IV .Q24H [facility]; Protocol Stop: 10/25/21 06:14 Last Admin: 09/28/21 13:33 Dose: 4.1 units/hr, 4.1 mls/hr Documented by: Famotidine 20 mg/ Syringe 5 mls @ 2.5 mls/min IV [facility] Stop: 10/26/21 08:59 Last Admin: 09/28/21 08:03 Dose: 2.5 mls/min Documented by: Fentanyl Citrate (Fentanyl Citrate) 2,500 mcg in 250 mls @ 5 mls/hr IV .Q50H [facility]; Protocol Stop: 10/10/21 13:59 Last Titration: 09/28/21 07:09 Dose: 50 mcg/hr, 5 mls/hr Documented by: Propofol (Diprivan) 1,000 mg in 100 mls @ 0 mls/hr IV .Q0M [facility]; Protocol Stop: 09/29/21 13:59 Last Titration: 09/28/21 07:09 Dose: Infused Documented by: Norepinephrine Bitartrate (Levophed/D5w) 8 mg in 508 mls @ 11.918 mls/hr IV .Q24H [facility]UN[facility]; Protocol Stop: 10/26/21 18:44 Last Titration: 09/28/21 07:09 Dose: 0.04 mcg/kg/min, 11.9 mls/hr Documented by: Dexmedetomidine HCl 200 mcg/ (Sodium Chloride) 50 mls @ 19.55 mls/hr IV .Q2H34M [facility]; Protocol Stop: 10/01/21 08:44 Last Admin: 09/28/21 13:33 Dose: 1 mcg/kg/hr, 19.6 mls/hr Documented by: Insulin Aspart (Insulin Aspart Per Unit) 0 units SC ACHS [facility] Stop: 10/25/21 07:29 Last Admin: 09/25/21 08:05 Dose: Not Given Documented by: Levothyroxine Sodium (Levothyroxine Sodium 50 Mcg Tablet) 50 mcg PO DAILYBB [facility] Stop: 10/23/21 12:29 Last Admin: 09/28/21 05:20 Dose: 50 mcg Documented by: Lidocaine (Lidocaine 5% 1 Patch) [facility] [place]: 10/26/21 10:29 Last Admin: 09/28/21 08:00 Dose: 1 patch Documented by: Miscellaneous (Carbohydrates For Hypoglycemia ) 15 - 30 gm PO UD PRN PRN Reason: Hypoglycemia Protocol Stop: 10/23/21 11:47 Miscellaneous (Remove Lidoderm Patch) 1 ea N/A Q24H [facility] Stop: 10/26/21 21:59 Last Admin: 09/27/21 20:14 Dose: 1 ea Documented by: Miscellaneous (Icu Electrolyte Replacement Protocol) 1 ea N/A BID@06,18 [facility]; Protocol Stop: 10/04/21 17:59 Last Admin: 09/28/21 06:03 Dose: 1 ea Documented by: Miscellaneous Information (Piperacill/Tazobac Consult Active) 1 ea N/A UD PRN PRN Reason: Consult Stop: 10/23/21 07:45 Multi-Ingredient Cream (Artificial Tears Op Oint 3.5 Gm Tube) 1 appln OP Q2H PRN PRN Reason: eye protection Stop: 10/24/21 22:04 Multivitamins/Minerals (Multi Vit W/Minerals Liquid 15 Ml Udp) 15 ml [place] [facility] [place]: 10/28/21 08:59 Last Admin: 09/28/21 08:00 Dose: 15 ml Documented by: Nutritional Formula (Peptamen Intense Vhp 1.0 Scott 1,000 Ml Bag) 1,000 ml OG UD NHUNG; Protocol Stop: 10/27/21 14:29 Last Admin: 09/27/21 15:43 Dose: 1,000 ml Documented by: Ondansetron HCl (Ondansetron Inj 2 Mg/Ml 2 Ml Vial) 4 mg IV Q6H PRN PRN Reason: Nausea Stop: 10/23/21 15:25 Polyethylene Glycol (Polyethylene (Miralax) 17 Gm Pack) 17 gm PO DAILY PRN PRN Reason: Constipation Stop: 10/23/21 15:25 Propofol (Propofol Bolus From Bag) 20 mg IV Q5M PRN PRN Reason: Sedation Stop: 09/29/21 13:45 Sterile Water (Tube Feeding Water Flush) 30 ml OG Q4H NHUNG Stop: 10/27/21 14:29 Last Admin: 09/28/21 11:02 Dose: 30 ml Documented by: Umeclidinium [place] (Umeclidinium [place] 62.5mcg/Blister 7 Puffs/Inhaler) 1 puffs INH DAILY [facility]UNG Stop: 10/23/21 12:29 Last Admin: 09/28/21 08:01 Dose: Not Given Documented by: PG Care Time/CCT Total # of Minutes Spent Total Time Spent with Patient: Total time spent is greater than 50% in coordination of care (as documented) at patient's floor/unit and/or counseling patient: Coding Level of Care Code 24102 Subseq Hosp Care Lvl 2 Diagnoses Cardiac arrest I46.9 Pneumonia J18.9 Person under investigation for COVID-19 Z20.822 Heart failure I50.9 COPD (chronic obstructive pulmonary disease) J44.9 Depression F32.9 History of breast cancer Z85.3 Hypothyroidism E03.9 T2DM (type 2 diabetes mellitus) E11.9 DVT prophylaxis Z29.9
[2021-09-28] MEDS: ACETAMINOPHEN 1000 MG/100 ML IV IV PRN (15:42)
[2021-09-28] MEDS ORDERED: CASPOFUNGIN 70 MG in SODIUM CHLORIDE 0.9% 250 ML IV ONE (16:30)
[2021-09-28] MEDS: PEPTAMEN INTENSE VHP 1.0 CAL 1,000 ML BAG OG SCH (20:32)
[2021-09-28] MEDS: NOREPINEPHRINE/D5W 8 MG/508 ML BAG IV SCH (20:33)
[2021-09-29] MEDS: DEXMEDETOMIDINE HCL 200 MCG in SODIUM CHLORIDE 0.9% 48 ML IV SCH ×3 (02:16→08:02)
[2021-09-29] MEDS: TUBE FEEDING WATER FLUSH OG SCH ×6 (04:51→21:32)
[2021-09-29] MEDS: PIPERACILLIN/TAZOBACTAM 3.375 GM in DEXTROSE 5% 100 ML IV SCH ×3 (04:51→20:25)
[2021-09-29 05:31] LABS: iSTAT Allen Test Pass; iSTAT Arterial Blood Gas HCO3 23 meg/L (19-24); iSTAT Arterial Blood Gas pCO2 44 mmHg (35-46); iSTAT Arterial Blood Gas pH 7.34 (7.35-7.45); iSTAT Arterial Blood Gas pO2 61 mmHg (80-95); iSTAT Carbon Dioxide 25 mmol/L (24-31); iSTAT FiO2 30 %; iSTAT Site R Radial
[2021-09-29 06:06] LABS: Hematocrit (blood only) 33.8 % (37-47); Hemoglobin 10.8 g/dL (12.0-16.0); Mean Corpuscular Hemoglobin 31.2 pg (25-34); Mean Corpuscular Volume 97.7 fL (80-100); Mean Platelet Volume 10.5 fL (7.4-10.4); Platelet Count 144 K/uL (130-400); RDW Coefficient of Variation 14.1 % (11.5-14.5); RDW Standard Deviation 49.9 fL (36.4-46.3); Red Blood Count 3.46 M/uL (4.2-5.4); White Blood Count 11.38 K/uL (4.8-10.8)
[2021-09-29 06:43] LABS: BUN Creatinine Ratio 42.2 (10-20); Calcium 7.8 mg/dl (8.5-10.1); Creatinine Clr Calc Pharmacy 44.7 ml/min; Est GFR (African American) 61.4 ml/min; Magnesium 2.2 mg/dl (1.7-2.4); Phosphorus 2.9 mg/dl (2.5-4.9); Potassium 3.9 mmol/L (3.5-5.1)
--- NOTE | 2021-09-29 06:58 | XRay Report ---
XR chest 1V portable CLINICAL HISTORY: Respiratory failure. COMPARISON STUDY: Chest CT September 24, 2021. Chest radiograph September 28, 2021. FINDINGS: Tip of endotracheal tube is 3.5 cm above the delonte. Right pleural catheter remains in plac e. There is no pneumothorax. Small right pleural effusion is noted. Cardiomegaly is unchanged. Right internal jugular central line is in place. Tip of nasogastric tube is difficult to visualize but at l east within the distal body of the stomach. There are right axillary surgical clips. Bilateral airspa ce opacities, greater within the left lung, are similar to prior exam. IMPRESSION: 1. Satisfactory positioning of lines and tubes. 2. Right basilar pleural catheter in place. No pneumothorax. Small right pleural effusion, decreased since prior exam. 3. No change in bilateral airspace opacities, greater within the left lung. ACT 112: Negative or not required by law. Electronically signed by: Tremaine See M.D. 09/29/2021 6:56 AM
[2021-09-29] MEDS: ICU ELECTROLYTE REPLACEMENT PROTOCOL SCH ×2 (07:01→17:30)
[2021-09-29] MEDS: LEVOTHYROXINE SODIUM 50 MCG TABLET PO SCH (08:01)
[2021-09-29] MEDS: DEXMEDETOMIDINE HCL 400 MCG in SODIUM CHLORIDE 0.9% 96 ML IV SCH ×3 (08:01→20:20)
[2021-09-29] MEDS: ENOXAPARIN INJ 40 MG/0.4 ML SYR SQ SCH (08:02)
[2021-09-29] MEDS: FLUoxetine HCL 20 MG/5 ML 120ML BTL PO SCH (08:03)
[2021-09-29] MEDS: MULTI VIT W/MINERALS LIQUID 15 ML UDP NG SCH (08:03)
[2021-09-29] MEDS: UMECLIDINIUM BROMIDE 62.5MCG/BLISTER 7 PUFFS/INHALER INH SCH (08:03)
[2021-09-29] MEDS: LIDOCAINE 5% 1 PATCH TD SCH (08:03)
[2021-09-29] MEDS: FAMOTIDINE 20 MG in SYRINGE 3 ML IV SCH (08:05)
[2021-09-29] MEDS: POTASSIUM CHLORIDE 20 MEQ/15 ML UDC NG SCH ×2 (08:05→13:04)
[2021-09-29] MEDS: CASPOFUNGIN 50 MG in SODIUM CHLORIDE 0.9% 250 ML IV SCH (09:22)
--- NOTE | 2021-09-29 11:44 | Critical Care Progress Note ---
Date of Service September 29, 2021 Assessment & Plan (1) Cardiac arrest: (2) Heart failure: (3) Pleural effusion: (4) Aspiration pneumonia: (5) ARDS (adult respiratory distress syndrome): (6) Pneumothorax: (7) Acute encephalopathy: Plan: Neurologic: Unfortunately, she was reintubated on 09/26, 2 hours after extubation due to encephalopathy and hypoxia. She was able to follow commands post extubation. We will try to minimize sedation. Her downtime after cardiac arrest was only approximately 6 minutes. She did follow commands post extubation on 09/26. CT head negative for acute disease post cardiac arrest 09/24. Chronic lacunar infarcts identified. MRI brain without contrast ordered. Pulmonary: Patient with continued hypoxemic respiratory failure and extensive left-sided infiltrates. Suspect degree of pulmonary contusions and likely aspiration pne umonia. Continue broad-spectrum antibiotics. The pneumothorax on the right appears to have resolved and there is no significant air leak. We will remove chest tube today. Pleural fluid cytology is negative for malignancy. Cultures negative thus far from the pleural fluid. Extubation is precluded due to mental status changes. Family wishes to continue with ventilator at this time. Cardiovascular: Echo with an LVEF that is normal. RVSP 30-40. Moderate mitral annular calcification. Hypothermia process complete. Continue maintain mean arterial pressure above 65 mmHg. Gastrointestinal: Continue tube feeds. LFT stable from 09/26. Renal: No significant issues. Monitor urine output closely. No significant issues. Replace potassium as needed. Infectious disease: Cultures negative to date from blood and pleural fluid. MRSA screen negative. Procal 4.58/09/25 >>1.84/09/27. Leukocytosis resolved. Continue Zosyn empirically. Yeast growing from sputum cultures. Caspofungin initiated 09/28. Hematologic: No significant issues at present. Hgb stable. Endocrine: ICU hypoglycemia protocol Lines and tubes: Intubated 09/24/2021, reintubated 09/26. Left radial art line in place 09/24, IJ in place 09/24. Right pigtail catheter placed 09/25/2021. VTE prophylaxis: Lovenox 40 mg daily. CODE STATUS: DNR, but okay with vent. Prognosis continues to be very guarded. Family at bedside: Non available at bedside presently. Disposition: Remain in the ICU. I have personally spent 32 minutes of critical care time in the direct management of this patient. This is a life/limb threatening event. This includes time spent evaluating patient, direct bedside care, chart review, placing orders, interpretation of diagnostic studies, discussion with consultants, patient, and family members, as well as other required patient management activities. This time is exclusive of all separately billable procedures, and teaching time and separate from and in addition to any other critical care service time. Thank you for allowing us to participate in the care of this patient. Admission and Anticipated Discharge Date Admission Date: September 23, 2021 Subjective Patient continues on low doses of Precedex and fentanyl. New spontaneously withdraws to pain, but not following commands currently. Otherwise no acute events. Review of Systems Review of Systems: All systems reviewed & are unremarkable except as noted in HPI & below, Unobtainable due to endotracheal tube and Unobtainable due to reduced consciousness Physical Exam Physical Exam: Constitutional: Intubated and sedated. When sedation is weaned she becomes very agitated. Eyes: Pupils are equal round and reactive to light. Conjunctivae are normal. Anicteric sclera. Ears nose, mouth and throat: Endotracheal tube in place. Neck: Trachea is midline. Visual inspection is normal. Respiratory: Coarse breath sounds bilaterally. Pigtail catheter in place on the right. Cardiovascular: Tachycardic. No murmurs. Minimal edema. Gastrointestinal: Normal bowel sounds, soft, nontender and nondistended. No hepatosplenomegaly noted. Musculoskeletal: Extremities intact. Skin: No rashes, warm dry and intact. Neurologic: Nonfocal. Moves limbs spontaneously. Psychiatric: Unable to assess. Results & Data Results & Data ([facility]) Vital Signs (Past 12 Hours) Vital Signs Temp Pulse Resp BP Pulse Ox 09/29/21 07:51 65 24 91 09/29/21 07:50 59 L 27 H 90 09/29/21 06:45 36.7 C 58 L 19 91 09/29/21 06:30 36.6 C 59 L 19 122/57 L 91 09/29/21 06:15 36.6 C 59 L 20 91 09/29/21 06:00 36.6 C 59 L 18 90 09/29/21 05:45 36.6 C 61 19 88 L 09/29/21 05:30 36.6 C 67 16 142/70 H 87 L 09/29/21 05:15 36.6 C 58 L 19 91 09/29/21 05:01 36.5 C 58 L 19 126/62 91 09/29/21 04:45 36.5 C 54 L 19 92 09/29/21 04:31 36.5 C 53 L 19 84/41 L 90 09/29/21 04:28 61 27 H 90 09/29/21 04:15 36.5 C 57 L 18 93 09/29/21 04:00 36.5 C 59 L 20 138/63 94 09/29/21 03:45 36.5 C 57 L 19 94 09/29/21 03:30 36.5 C 58 L 19 121/56 L 92 09/29/21 03:15 36.4 C L 58 L 18 92 09/29/21 03:00 36.5 C 60 18 92 09/29/21 02:45 36.5 C 58 L 19 92 09/29/21 02:30 36.5 C 58 L 18 137/58 L 91 09/29/21 02:15 36.6 C 58 L 19 92 09/29/21 02:00 36.5 C 59 L 18 126/56 L 91 09/29/21 01:45 36.6 C 58 L 19 92 09/29/21 01:30 36.6 C 61 17 128/57 L 91 09/29/21 01:15 36.6 C 60 18 92 09/29/21 01:00 36.6 C 60 18 91 09/29/21 00:45 36.6 C 60 21 91 09/29/21 00:30 36.6 C 60 18 128/58 L 91 09/29/21 00:15 36.6 C 60 18 91 09/29/21 00:00 36.6 C 60 18 123/58 L 90 09/28/21 23:45 36.6 C 61 20 90 Coding Level of Care Code Critical Care 1st 30-74 mins Diagnoses Cardiac arrest I46.9 Heart failure I50.9 Pleural effusion J90 Aspiration pneumonia J69.0 ARDS (adult respiratory distress syndrome) J80 Pneumothorax J93.9 Acute encephalopathy G93.40 Time Spent (min) 32
--- NOTE | 2021-09-29 14:48 | Hospitalist Progress Note ---
Date of Service September 29, 2021 Assessment & Plan (1) Cardiac arrest: Plan: Remains in the ICU with intubation ventilation after failing extubation on 09/26 for 4 hours was reintubated, sedation continues. Echocardiogram shows preserved ejection fraction and wall motion abnormality with right-sided elevated pressures likely consistent with her chronic smoking. Mild troponin leak could be from cardiac contusion from CPR or from shock did require pressors for period of time was unconscious s/p cardiac arrest with external cooling now reversed she was following commands after her arrest and on 09/26 when she failed extubation guarded prognosis, she is DNR but family wants ventilator (2) Pneumonia: Plan: Right lower lobe pneumonia with loculated pleural effusion at the right base consistent possibly with aspiration or gram-negative pneumonia patient be continued on Zosyn therapy. 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, noted by Dr Alexander with watchful waiting sputum culture with yeast, added Caspofungin on 09/28 by ICU continue Zosyn and Caspofungin for a few days, see if she improves and able to be extubated (3) COPD (chronic obstructive pulmonary disease): Plan: Medically treat acute exacerbation is at this time Umeclidinium inhaled via vent (4) Depression: Plan: Continue BuSpar fluoxetine which seems stable (5) History of breast cancer: Plan: History of bilateral mastectomy in 2011 certainly raises concern with this loculated effusion, continue anastrozole (6) Hypothyroidism: Plan: Continue Synthroid therapy (7) T2DM (type 2 diabetes mellitus): Plan: Hold Farxiga glipizide check hemoglobin A1c have insulin sliding scale we will not add glargine unless we need to holding lisinopril at this time (8) DVT prophylaxis: Plan: Heparin for DVT prevention Patient and her confirms she is a full code prior to admission however after cardiac arrest was made a conditional code Admission and Anticipated Discharge Date Admission Date: September 23, 2021 Subjective patient remains intubated d/w Dr. Martinez who discussed with family plan to treat pneumonia with Caspofungin and Zosyn for a few days, see if she can improve reviewed labs, chart Review of Systems Review of Systems: Unobtainable due to endotracheal tube Physical Exam Physical Exam: General: well developed, well nourished, intubated and ventilated Neck: supple, trachea midline, normal thyroid Lungs: coarse sounds on left, clear on right, ventilated, right sided chest tube Heart: regular S1 and S2, no murmur, peripheral pulses normal, capillary refill normal, no edema Abdomen: soft, NT, ND, + BS, no hepatomegaly, normal to percussion Extremities: normal in appearance, no cyanosis, no petechiae Neuro: sedated, moves all extremities, no focal motor deficits, CN II-XII intact Skin: warm, dry, no rash, normal turgor Psych: sedated Results & Data Results & Data ([facility]) Vital Signs (Past 12 Hours) Vital Signs Temp Pulse Resp BP Pulse Ox 09/29/21 10:50 66 18 92 09/29/21 07:51 65 24 91 09/29/21 07:50 59 L 27 H 90 09/29/21 06:45 36.7 C 58 L 19 91 09/29/21 06:30 36.6 C 59 L 19 122/57 L 91 09/29/21 06:15 36.6 C 59 L 20 91 09/29/21 06:00 36.6 C 59 L 18 90 09/29/21 05:45 36.6 C 61 19 88 L 09/29/21 05:30 36.6 C 67 16 142/70 H 87 L 09/29/21 05:15 36.6 C 58 L 19 91 09/29/21 05:01 36.5 C 58 L 19 126/62 91 09/29/21 04:45 36.5 C 54 L 19 92 09/29/21 04:31 36.5 C 53 L 19 84/41 L 90 09/29/21 04:28 61 27 H 90 09/29/21 04:15 36.5 C 57 L 18 93 09/29/21 04:00 36.5 C 59 L 20 138/63 94 09/29/21 03:45 36.5 C 57 L 19 94 09/29/21 03:30 36.5 C 58 L 19 121/56 L 92 09/29/21 03:15 36.4 C L 58 L 18 92 09/29/21 03:00 36.5 C 60 18 92 Laboratory Results Laboratory Results - last 24 hr 09/28/21 09/28/21 09/28/21 15:28 16:22 17:39 WBC RBC Hgb Hct MCV MCH MCHC RDW Std Deviation RDW Coeff of Vishal Plt Count MPV Sample Site POC pH POC pCO2 POC pO2 POC HCO3 POC Total CO2 POC Base Excess POC ABG O2 Sat Hector Test O2 Delivery Device POC O2 Rate POC FiO2 Tidal Volume PEEP Sodium Potassium Chloride Carbon Dioxide Anion Gap BUN Creatinine Est Cr Clr Drug Dosing Est GFR ( Amer) Est GFR (Non-Af Amer) BUN/Creatinine Ratio Glucose POC Glucose 164 H 135 H 125 H POC Glucose (other) Calcium Phosphorus Magnesium 09/28/21 09/28/21 09/28/21 18:31 19:39 21:02 WBC RBC Hgb Hct MCV MCH MCHC RDW Std Deviation RDW Coeff of Vishal Plt Count MPV Sample Site POC pH POC pCO2 POC pO2 POC HCO3 POC Total CO2 POC Base Excess POC ABG O2 Sat Hector Test O2 Delivery Device POC O2 Rate POC FiO2 Tidal Volume PEEP Sodium Potassium Chloride Carbon Dioxide Anion Gap BUN Creatinine Est Cr Clr Drug Dosing Est GFR ( Amer) Est GFR (Non-Af Amer) BUN/Creatinine Ratio Glucose POC Glucose 124 H 141 H POC Glucose (other) 118 H Calcium Phosphorus Magnesium 09/28/21 09/28/21 09/28/21 21:14 21:56 22:49 WBC RBC Hgb Hct MCV MCH MCHC RDW Std Deviation RDW Coeff of Vishal Plt Count MPV Sample Site POC pH POC pCO2 POC pO2 POC HCO3 POC Total CO2 POC Base Excess POC ABG O2 Sat Hector Test O2 Delivery Device POC O2 Rate POC FiO2 Tidal Volume PEEP Sodium Potassium Chloride Carbon Dioxide Anion Gap BUN Creatinine Est Cr Clr Drug Dosing Est GFR ( Amer) Est GFR (Non-Af Amer) BUN/Creatinine Ratio Glucose POC Glucose POC Glucose (other) 123 H 129 H 138 H Calcium Phosphorus Magnesium 09/28/21 09/29/21 09/29/21 23:44 01:38 04:26 WBC RBC Hgb Hct MCV MCH MCHC RDW Std Deviation RDW Coeff of Vishal Plt Count MPV Sample Site POC pH POC pCO2 POC pO2 POC HCO3 POC Total CO2 POC Base Excess POC ABG O2 Sat Hector Test O2 Delivery Device POC O2 Rate POC FiO2 Tidal Volume PEEP Sodium Potassium Chloride Carbon Dioxide Anion Gap BUN Creatinine Est Cr Clr Drug Dosing Est GFR ( Amer) Est GFR (Non-Af Amer) BUN/Creatinine Ratio Glucose POC Glucose POC Glucose (other) 148 H 153 H > 700 H* Calcium Phosphorus Magnesium 09/29/21 09/29/21 09/29/21 04:40 04:43 05:17 WBC RBC Hgb Hct MCV MCH MCHC RDW Std Deviation RDW Coeff of Vishal Plt Count MPV Sample Site R Radial POC pH 7.34 L POC pCO2 44 POC pO2 61 L POC HCO3 23 POC Total CO2 25 POC Base Excess -2.0 POC ABG O2 Sat 89.0 L Hector Test Pass O2 Delivery Device Ventilator POC O2 Rate 22 POC FiO2 30 Tidal Volume 340 PEEP 5 Sodium Potassium Chloride Carbon Dioxide Anion Gap BUN Creatinine Est Cr Clr Drug Dosing Est GFR ( Amer) Est GFR (Non-Af Amer) BUN/Creatinine Ratio Glucose POC Glucose > 600 H* 164 H POC Glucose (other) Calcium Phosphorus Magnesium 09/29/21 09/29/21 09/29/21 05:42 05:42 08:29 WBC 11.38 H RBC 3.46 L Hgb 10.8 L Hct 33.8 L MCV 97.7 MCH 31.2 MCHC 32.0 RDW Std Deviation 49.9 H RDW Coeff of Vishal 14.1 Plt Count 144 MPV 10.5 H Sample Site POC pH POC pCO2 POC pO2 POC HCO3 POC Total CO2 POC Base Excess POC ABG O2 Sat Hector Test O2 Delivery Device POC O2 Rate POC FiO2 Tidal Volume PEEP Sodium 140 Potassium 3.9 Chloride 108 H Carbon Dioxide 25 Anion Gap 7 BUN 43 H Creatinine 1.02 Est Cr Clr Drug Dosing 44.7 Est GFR ( Amer) 61.4 Est GFR (Non-Af Amer) 53.0 BUN/Creatinine Ratio 42.2 H Glucose 160 H POC Glucose 180 H POC Glucose (other) Calcium 7.8 L Phosphorus 2.9 Magnesium 2.2 09/29/21 09/29/21 12:59 14:07 WBC RBC Hgb Hct MCV MCH MCHC RDW Std Deviation RDW Coeff of Vishal Plt Count MPV Sample Site POC pH POC pCO2 POC pO2 POC HCO3 POC Total CO2 POC Base Excess POC ABG O2 Sat Hector Test O2 Delivery Device POC O2 Rate POC FiO2 Tidal Volume PEEP Sodium Potassium Chloride Carbon Dioxide Anion Gap BUN Creatinine Est Cr Clr Drug Dosing Est GFR ( Amer) Est GFR (Non-Af Amer) BUN/Creatinine Ratio Glucose POC Glucose 198 H 178 H POC Glucose (other) Calcium Phosphorus Magnesium Medications Administered Current Inpatient Medications Acetaminophen (Acetaminophen 500 Mg Tab) 1,000 mg PO Q6H PRN PRN Reason: pain -02/07 Stop: 10/23/21 15:07 Last Admin: 09/24/21 08:03 Dose: 1,000 mg Documented by: Al Hydrox/Mg Hydrox/Simethicone (Aluminum/Magnesium Susp 30 Ml Udc) 30 ml PO Q6H PRN PRN Reason: Dyspepsia Stop: 10/23/21 15:25 Albuterol (Albuterol Hfa 8 Gm Inhaler) 1 puffs INH Q4R PRN PRN Reason: shortness of breath or wheezing Stop: 10/23/21 11:47 Albuterol (Albut/Ipratrop 3mg/0.5mg Neb 3 Ml Vial) 3 ml NEB Q6R PRN; Protocol PRN Reason: Shortness Of Breath Or Wheezing Stop: 10/25/21 04:52 Dextrose (Dextrose 50% 50 Ml Syringe) 25 - 50 ml IV UD PRN; Protocol PRN Reason: Hypoglycemia Protocol Stop: 10/23/21 11:47 Last Admin: 09/25/21 22:55 Dose: 50 ml Documented by: Enoxaparin Sodium (Enoxaparin Inj 40 Mg/0.4 Ml Syr) 40 mg SQ QAM [facility] Stop: 10/27/21 14:59 Last Admin: 09/29/21 08:02 Dose: 40 mg Documented by: Fentanyl Citrate (Fentanyl Bolus From Bag) 50 mcg IV Q60M PRN PRN Reason: Pain or Agitation Stop: 10/10/21 13:45 Last Admin: 09/29/21 13:13 Dose: 50 mcg Documented by: Fluoxetine HCl (Fluoxetine Hcl 20 Mg/5 Ml 120ml Btl) 40 mg PO QAM NHUNG Stop: 10/25/21 10:59 Last Admin: 09/29/21 08:03 Dose: 40 mg Documented by: Glucagon (Glucagon For Inj 1 Mg Vial) 1 mg SQ UD PRN; Protocol PRN Reason: Hypoglycemia Protocol Stop: 10/23/21 11:47 Glucose (Glucose 10 Tabs/Tube) 4 - 8 tabs PO UD PRN; Protocol PRN Reason: Hypoglycemia Protocol Stop: 10/23/21 11:47 Glucose (Glucose 40% Gel 15 Gm Tube) 15 - 30 gm PO UD PRN; Protocol PRN Reason: Hypoglycemia Protocol Stop: 10/23/21 11:47 Piperacillin Sod/Tazobactam (Sod 3.375 gm/ Dextrose) 115 mls @ 28.75 mls/hr IV Q8H [facility]; Protocol Stop: 09/30/21 12:59 Last Admin: 09/29/21 13:03 Dose: 28.8 mls/hr Documented by: Insulin Human Regular 250 (units/ Sodium Chloride) 250 mls @ 3.1 mls/hr IV .Q24H [facility]; Protocol Stop: 10/25/21 06:14 Last Titration: 09/29/21 14:12 Dose: 3.1 units/hr, 3.1 mls/hr Documented by: Famotidine 20 mg/ Syringe 5 mls @ 2.5 mls/min IV QAM [facility] Stop: 10/26/21 08:59 Last Admin: 09/29/21 08:05 Dose: 2.5 mls/min Documented by: Fentanyl Citrate (Fentanyl Citrate) 2,500 mcg in 250 mls @ 5 mls/hr IV .Q50H [facility]; Protocol Stop: 10/10/21 13:59 Last Titration: 09/29/21 13:14 Dose: 50 mcg/hr, 5 mls/hr Documented by: Norepinephrine Bitartrate (Levophed/D5w) 8 mg in 508 mls @ 5.959 mls/hr IV .Q24H [facility]; Protocol Stop: 10/26/21 18:44 Last Titration: 09/29/21 10:46 Dose: 0.02 mcg/kg/min, 6 mls/hr Documented by: Dexmedetomidine HCl 400 mcg/ (Sodium Chloride) 100 mls @ 15.64 mls/hr IV .Q6H24M [facility]; Protocol Stop: 10/03/21 08:29 Last Titration: 09/29/21 13:13 Dose: 0.8 mcg/kg/hr, 15.6 mls/hr Documented by: Caspofungin 50 mg/ Sodium (Chloride) 260 mls @ 250 mls/hr IV DAILY [facility] Stop: 10/29/21 08:59 Last Infusion: 09/29/21 10:45 Dose: Infused Documented by: Insulin Aspart (Insulin Aspart Per Unit) 0 units SC ACHS [facility] Stop: 10/25/21 07:29 Last Admin: 09/25/21 08:05 Dose: Not Given Documented by: Levothyroxine Sodium (Levothyroxine Sodium 50 Mcg Tablet) 50 mcg PO DAILYBB [facility] Stop: 10/23/21 12:29 Last Admin: 09/29/21 08:01 Dose: 50 mcg Documented by: Lidocaine (Lidocaine 5% 1 Patch) 1 patch TD QAM [facility] Stop: 10/26/21 10:29 Last Admin: 09/29/21 08:03 Dose: 1 patch Documented by: Miscellaneous (Carbohydrates For Hypoglycemia ) 15 - 30 gm PO UD PRN PRN Reason: Hypoglycemia Protocol Stop: 10/23/21 11:47 Miscellaneous (Remove Lidoderm Patch) 1 ea N/A Q24H [facility] Stop: 10/26/21 21:59 Last Admin: 09/28/21 20:32 Dose: 1 ea Documented by: Miscellaneous (Icu Electrolyte Replacement Protocol) 1 ea N/A BID@06,18 [facility]; Protocol Stop: 10/04/21 17:59 Last Admin: 09/29/21 07:01 Dose: 1 ea Documented by: Miscellaneous Information (Piperacill/Tazobac Consult Active) 1 ea N/A UD PRN PRN Reason: Consult Stop: 10/23/21 07:45 Multi-Ingredient Cream (Artificial Tears Op Oint 3.5 Gm Tube) 1 appln OP Q2H PRN PRN Reason: eye protection Stop: 10/24/21 22:04 Multivitamins/Minerals (Multi Vit W/Minerals Liquid 15 Ml Udp) [facility] Stop: 10/28/21 08:59 Last Admin: 09/29/21 08:03 Dose: 15 ml Documented by: Nutritional Formula (Peptamen Intense Vhp 1.0 Scott 1,000 Ml Bag) 1,000 ml OG UD [facility]; Protocol Stop: 10/27/21 14:29 Last Admin: 09/28/21 20:32 Dose: 1,000 ml Documented by: Ondansetron HCl (Ondansetron Inj 2 Mg/Ml 2 Ml Vial) 4 mg IV Q6H PRN PRN Reason: Nausea Stop: 10/23/21 15:25 Polyethylene Glycol (Polyethylene (Miralax) 17 Gm Pack) 17 gm PO DAILY PRN PRN Reason: Constipation Stop: 10/23/21 15:25 Sterile Water (Tube Feeding Water Flush) 30 ml OG Q4H [facility] Stop: 10/27/21 14:29 Last Admin: 09/29/21 13:04 Dose: 30 ml Documented by: Umeclidinium [place] (Umeclidinium [place] 62.5mcg/Blister 7 Puffs/Inhaler) 1 puffs INH DAILY [facility] Stop: 10/23/21 12:29 Last Admin: 09/29/21 08:03 Dose: Not Given Documented by: PG Care Time/CCT Total # of Minutes Spent Total Time Spent with Patient: Total time spent is greater than 50% in coordination of care (as documented) at patient's floor/unit and/or counseling patient: Coding Level of Care Code 16630 Subseq Hosp Care Lvl 2 Diagnoses Cardiac arrest I46.9 Pneumonia J18.9 COPD (chronic obstructive pulmonary disease) J44.9 Depression F32.9 History of breast cancer Z85.3 Hypothyroidism E03.9 T2DM (type 2 diabetes mellitus) E11.9 DVT prophylaxis Z29.9
--- NOTE | 2021-09-29 17:08 | Magnetic Resonance Report ---
MRI OF THE BRAIN WITHOUT CONTRAST CLINICAL HISTORY: Cardiac arrest. Evaluate for anoxic injury. COMPARISON STUDY: MRI of the brain February 03, 2020. Head CT September 24, 2021. TECHNIQUE: Utilizing a 1.5 Sandra magnet and dedicated coil, multiplanar, multiecho imaging of the bra in was performed without IV contrast. FINDINGS: Exam is mildly compromised by motion artifact although is diagnostic. There are no foci of restricted diffusion to suggest acute infarct. No acute intracranial hemorrhage, midline shift or mas s effect is present. Right parotid gland lesion is similar to MRI of February 03, 2020. Several old lacuna r infarcts within the right cerebellar hemisphere are noted. There is an old periventricular left fro ntal lobe infarct. Old lacunar infarcts within the bilateral basal ganglia are noted. Ventricular sys tem is unremarkable. Basal cisterns are patent. There are no extra-axial collections. No intracranial masses are identified on this unenhanced exam. White matter T2 hyperintense foci favor small vessel disease. Endotracheal and nasogastric tubes are partially imaged. This likely accounts for secretions within the nasopharynx and sphenoid sinuses. Fluid within the bilateral mastoid air cells is noted. Diminished marrow signal within the calvarium is similar to MRI of February 03, 2020. IMPRESSION: 1. No acute intracranial findings. No acute infarcts. No MRI evidence for anoxic injury. Exam mildly compromised by motion artifact. 2. Multiple old infarcts, as described above. White matter T2 hyperintense foci suggest small vessel disease. 3. Secretions within the nasopharynx and sphenoid sinuses and fluid within the bilateral mastoid air cells. These findings are likely related to intubation. ACT 112: Negative or not required by law. Electronically signed by: Tremaine See M.D. 09/29/2021 5:07 PM
[2021-09-29] MEDS: fentaNYL citrate 2,500 MCG/250 ML BAG IV SCH (17:30)
[2021-09-30] MEDS: TUBE FEEDING WATER FLUSH OG SCH ×6 (02:20→22:36)
[2021-09-30] MEDS: DEXMEDETOMIDINE HCL 400 MCG in SODIUM CHLORIDE 0.9% 96 ML IV SCH ×3 (02:58→09:03)
[2021-09-30 04:47] LABS: iSTAT Allen Test Pass; iSTAT Art Bld Gas pCO2 Correct 51 mmHg (35-46); iSTAT Art Bld Gas pH Corrected 7.315 (7.35-7.45); iSTAT Arterial Blood Gas HCO3 26 meg/L (19-24); iSTAT Arterial Blood Gas pCO2 51 mmHg (35-46); iSTAT Arterial Blood Gas pH 7.32 (7.35-7.45); iSTAT Arterial Blood Gas pO2 79 mmHg (80-95); iSTAT Arterial Blood Gas pO2 C 80; iSTAT Carbon Dioxide 28 mmol/L (24-31); iSTAT FiO2 80 %; iSTAT Hematocrit 29 % (37-47); iSTAT Hemoglobin 9.9 g/dl (12.0-16.0); iSTAT Potassium 4.5 mmol/L (3.3-5.0); iSTAT Site R Radial; iSTAT Sodium 141 mmol/L (135-144)
[2021-09-30] MEDS: PEPTAMEN INTENSE VHP 1.0 CAL 1,000 ML BAG OG SCH ×2 (04:48→19:25)
[2021-09-30] MEDS: PIPERACILLIN/TAZOBACTAM 3.375 GM in DEXTROSE 5% 100 ML IV SCH ×3 (04:48→20:05)
[2021-09-30 05:18] LABS: Basophils # (auto) 0.03 K/uL (0-0.2); Basophils % (auto) 0.2 %; Eosinophils # (auto) 0.19 K/uL (0-0.5); Eosinophils % (auto) 1.2 %; Hematocrit (blood only) 35.3 % (37-47); Immature Granulocytes # (auto) 0.46 K/uL (0.00-0.02); Lymphocytes # (auto) 1.16 K/uL (1.2-3.4); Lymphocytes % (auto) 7.6 %; Mean Corpuscular Hemoglobin 30.7 pg (25-34); Mean Corpuscular Hgb Conc 31.2 g/dL (32-36); Mean Corpuscular Volume 98.6 fL (80-100); Mean Platelet Volume 10.9 fL (7.4-10.4); Monocytes # (auto) 1.04 K/uL (0.11-0.59); Monocytes % (auto) 6.8 %; Neutrophils # (auto) 12.43 K/uL (1.4-6.5); Neutrophils % (auto) 81.2 %; Nucleated RBC # (auto) 0.04 K/uL (0-0); Nucleated RBC % (auto) 0.3 %; Platelet Count 154 K/uL (130-400); RDW Coefficient of Variation 14.1 % (11.5-14.5); RDW Standard Deviation 50.6 fL (36.4-46.3); Red Blood Count 3.58 M/uL (4.2-5.4); White Blood Count 15.31 K/uL (4.8-10.8)
[2021-09-30 05:33] LABS: Calcium 7.8 mg/dl (8.5-10.1); Creatinine Clr Calc Pharmacy 47.5 ml/min; Est GFR (African American) 66.1 ml/min; Phosphorus 3.1 mg/dl (2.5-4.9); Potassium 4.6 mmol/L (3.5-5.1)
[2021-09-30] MEDS: ICU ELECTROLYTE REPLACEMENT PROTOCOL SCH ×2 (05:40→18:05)
[2021-09-30] MEDS: LEVOTHYROXINE SODIUM 50 MCG TABLET PO SCH (05:44)
[2021-09-30] MEDS ORDERED: FUROSEMIDE 40 MG/4 ML VIAL IV ONE ×2 (07:53→19:41)
--- NOTE | 2021-09-30 08:02 | XRay Report ---
XR chest 1V portable CLINICAL HISTORY: Resp failure. Follow-up bilateral airspace opacities. COMPARISON STUDY: 09/29/2021 TECHNIQUE: 1 view of the chest FINDINGS: Single frontal view of the chest demonstrates the heart to again be enlarged. ET and NG tubes along w ith right subclavian catheter again seen. Previously identified right pleural catheter is not identif ied on the current study. Compared to previous examination, there has been interval worsening of bilateral airspace opacities, now equal between the right left lungs. There is blunting of the costophrenic angles bilaterally nellie acteristic of bilateral pleural effusions. There is no evidence for vascular congestion. There is no acute osseous pathology. IMPRESSION: Worsening of bilateral airspace opacities particularly on the right. Evidence for bilater al pleural effusions. Right pleural catheter is not seen on the current study. ACT 112: Negative or not required by law. Electronically signed by: Eduardo Christiansen M.D. 09/30/2021 8:01 AM
[2021-09-30] MEDS: CASPOFUNGIN 50 MG in SODIUM CHLORIDE 0.9% 250 ML IV SCH (08:14)
[2021-09-30] MEDS: ENOXAPARIN INJ 40 MG/0.4 ML SYR SQ SCH (08:16)
[2021-09-30] MEDS: FLUoxetine HCL 20 MG/5 ML 120ML BTL PO SCH (08:16)
[2021-09-30] MEDS: MULTI VIT W/MINERALS LIQUID 15 ML UDP NG SCH (08:17)
[2021-09-30] MEDS: UMECLIDINIUM BROMIDE 62.5MCG/BLISTER 7 PUFFS/INHALER INH SCH (08:17)
[2021-09-30] MEDS: LIDOCAINE 5% 1 PATCH TD SCH (08:17)
[2021-09-30] MEDS: POLYETHYLENE (MIRALAX) 17 GM PACK PO PRN (08:20)
[2021-09-30] MEDS: MAGNESIUM OXIDE 400 MG TAB NG SCH ×2 (08:20→11:09)
[2021-09-30] MEDS: FAMOTIDINE 20 MG in SYRINGE 3 ML IV SCH (08:20)
--- NOTE | 2021-09-30 08:44 | Critical Care Progress Note ---
Date of Service September 30, 2021 Assessment & Plan (1) Cardiac arrest: (2) Heart failure: (3) Pleural effusion: (4) Aspiration pneumonia: (5) ARDS (adult respiratory distress syndrome): (6) Pneumothorax: (7) Acute encephalopathy: Plan: Neurologic: Her downtime after cardiac arrest was only approximately 6 minutes. Reintubated on 09/26, 2 hours after extubation due to encephalopathy and hypoxia. She was able to follow commands post extubation. Try to minimize sedation. She did follow commands post extubation on 09/26. CT head negative for acute disease post cardiac arrest 09/24. Chronic lacunar infarcts identified. MRI Brain 09/29 doesn't show signs of anoxia. No acute changes Pulmonary: --Acute hypoxic respiratory failure Diffuse bilateral infiltrates with pleural effusion Continue with antibiotics --Hydropneumothorax on the right Pigtail catheter removed 09/29/2021 Fluid cytology negative for malignancy Cultures negative from pleural fluid Cardiovascular: --Shock Combination of cardiogenic plus septic Echo with an LVEF that is normal. RVSP 30-40. Moderate mitral annular calcification. Continue maintain mean arterial pressure above 65 mmHg. Hypothermia process complete. Gastrointestinal: Continue tube feeds. LFT stable from 09/26. Renal: No significant issues. Monitor urine output closely. No significant issues. ICU electrolyte replacement protocol Infectious disease: Cultures negative to date from blood and pleural fluid. MRSA screen negative. Procal 4.58 09/25 >>1.84 09/27. . Continue Zosyn empirically. Yeast growing from sputum cultures. Caspofungin initiated 09/28. Hematologic: No significant issues at present. Hgb stable. Endocrine: ICU hypoglycemia protocol --Prophylaxis VTE: Lovenox GI: Pepcid Lines:Intubated 09/24/2021, reintubated 09/26, IJ in place 09/24. Right pigtail catheter placed 09/25 dc'd 09/29 Diet: N.p.o. Plan: In/out: -757, urine output 1175, +9.2 L since coming to the hospital AB.32/51/79 on PEEP of 5, 80% Chest x-ray from today shows worsening infiltrate bilaterally more on the right side with likely pleural effusion 40 mg of Lasix given to the patient. We will try to go down on the sedation gradually. Continue with Zosyn. Overall prognosis is guarded I have personally spent 38 minutes of critical care time in the direct management of this patient. This is a life/limb threatening event. This includes time spent evaluating patient, direct bedside care, chart review, placing orders, interpretation of diagnostic studies, discussion with consultants, patient, and family members, as well as other required patient management activities. This time is exclusive of all separately billable procedures, and teaching time and separate from and in addition to any other critical care service time. Thank you for allowing us to participate in the care of this patient. Admission and Anticipated Discharge Date Admission Date: September 23, 2021 Subjective Patient seen and examined at bedside. No acute distress. Overnight patient's oxygen requirement went up. She was on 90% FiO2 on pressure support 8/5 saturating 90-91% getting tidal volume 600 She was 100 of fentanyl, Precedex 1.2 at the time of examination On Levophed 0.06 T-max 37.6 Review of Systems Review of Systems: Unobtainable due to endotracheal tube Physical Exam Physical Exam: Constitutional: No acute distress HEENT: PERRLA, sluggish pupillary response Respiratory system: Decreased air entry bilaterally, no wheeze, no rebound positive crackles bilaterally CVS: S1-S2 positive Abdomen: Soft, nontender, nondistended, positive bowel sounds x4 Extremities: +2 pulses bilaterally radialis/ dorsalis pedis, no cyanosis, no edema Neuro: Breathing over the vent, sluggish pupillary response, positive gag Psych: Unable to assess G/U: Positive [place] Skin: no rashes, warm and dry Lymphatic: no cervical or axillary lymphadenopathy Results & Data Results & Data ([facility]) Vital Signs (Past 12 Hours) Vital Signs Temp Pulse Resp BP Pulse Ox 09/30/21 08:15 79 23 91 09/30/21 06:30 37.6 C H 79 16 110/60 90 09/30/21 06:15 37.6 C H 100 H 21 159/72 H 90 09/30/21 06:00 37.5 C 93 H 20 91 09/30/21 05:45 37.4 C 86 15 151/69 H 93 09/30/21 05:30 37.4 C 69 13 118/53 L 92 09/30/21 05:15 37.4 C 68 13 115/61 92 09/30/21 05:00 37.3 C 68 13 114/59 L 92 09/30/21 04:45 37.3 C 68 14 105/49 L 91 09/30/21 04:30 37.3 C 67 15 110/54 L 91 09/30/21 04:15 37.2 C 69 13 92/50 L 93 09/30/21 04:00 37.2 C 68 15 105/48 L 93 09/30/21 03:55 95 09/30/21 03:45 37.2 C 70 13 109/53 L 96 09/30/21 03:31 78 17 92 09/30/21 03:30 37.1 C 70 14 87/46 L 95 09/30/21 03:15 37.1 C 73 15 97/52 L 93 09/30/21 03:00 37.0 C 82 2 L 88/47 L 86 L 09/30/21 02:54 37.1 C 97 H 17 104/45 L 92 09/30/21 02:46 37.1 C 120 H 28 H 197/102 H 74 L 09/30/21 02:45 37.1 C 118 H 29 H 74 L 09/30/21 02:31 37.1 C 90 25 H 156/62 H 92 09/30/21 02:30 37.1 C 92 H 24 92 09/30/21 02:16 37.1 C 76 22 85/40 L 93 09/30/21 02:15 37.1 C 77 16 92 09/30/21 02:01 37.1 C 98 H 26 H 155/75 H 90 09/30/21 02:00 37.1 C 97 H 24 90 09/30/21 01:46 37.2 C 97 H 21 171/81 H 90 09/30/21 01:45 37.2 C 96 H 24 91 09/30/21 01:30 37.1 C 83 22 119/47 L 93 09/30/21 01:15 37.1 C 79 21 108/65 93 09/30/21 01:00 37.1 C 77 23 105/46 L 91 09/30/21 00:45 37.0 C 79 18 96/42 L 90 09/30/21 00:30 37.1 C 84 18 104/52 L 90 09/30/21 00:15 37.1 C 94 H 23 89 L 09/30/21 00:06 37.2 C 109 H 23 191/89 H 88 L 09/30/21 00:00 37.2 C 105 H 25 H 183/81 H 88 L 09/29/21 23:46 37.3 C 106 H 27 H 187/91 H 89 L 09/29/21 23:45 37.3 C 101 H 23 88 L 09/29/21 23:30 37.3 C 70 22 124/59 L 97 09/29/21 23:15 37.3 C 64 22 106/48 L 98 09/29/21 23:00 37.3 C 64 21 104/48 L 97 09/29/21 22:45 37.2 C 64 20 105/49 L 98 09/29/21 22:30 37.2 C 64 19 103/45 L 98 09/29/21 22:15 37.2 C 64 22 103/48 L 98 09/29/21 22:00 37.2 C 64 21 97 Laboratory Results 09/30/21 04:51 09/30/21 04:51 Coding Level of Care Code Critical Care 1st 30-74 mins Diagnoses Cardiac arrest I46.9 Heart failure I50.9 Pleural effusion J90 Aspiration pneumonia J69.0 ARDS (adult respiratory distress syndrome) J80 Pneumothorax J93.9 Acute encephalopathy G93.40 Time Spent (min) 38
[2021-09-30] MEDS: NOREPINEPHRINE/D5W 8 MG/508 ML BAG IV SCH (09:02)
[2021-09-30] MEDS: SENNOSIDES 8.8 MG/5 ML UDC PO SCH ×2 (11:07→19:25)
[2021-09-30] MEDS: ACETAMINOPHEN 500 MG TAB PO PRN ×2 (11:07→20:05)
[2021-09-30] MEDS: DOCUSATE SODIUM SYRUP 100 MG/10 ML UDC PO SCH ×2 (11:07→19:25)
[2021-09-30] MEDS: DEXMEDETOMIDINE HCL 400 MCG in 0.9 % SODIUM CHLORIDE 96 ML IV SCH ×4 (11:29→20:27)
--- NOTE | 2021-09-30 15:45 | Hospitalist Progress Note ---
Date of Service September 30, 2021 Assessment & Plan (1) Cardiac arrest: Plan: Remains in the ICU with intubation ventilation after failing extubation on 09/26 for 4 hours was reintubated, sedation continues. Echocardiogram shows preserved ejection fraction and wall motion abnormality with right-sided elevated pressures likely consistent with her chronic smoking. Mild troponin leak could be from cardiac contusion from CPR or from shock did require pressors for period of time was unconscious s/p cardiac arrest with external cooling now reversed she was following commands after her arrest and on 09/26 when she failed extubation guarded prognosis, she is DNR but family wants ventilator management per ICU (2) Pneumonia: Plan: Right lower lobe pneumonia with loculated pleural effusion at the right base consistent possibly with aspiration or gram-negative pneumonia patient be continued on Zosyn therapy. 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, noted by Dr Alexander with watchful waiting sputum culture with yeast, added Caspofungin on 09/28 by ICU, stopped Caspofungin 09/30 continue Zosyn (3) COPD (chronic obstructive pulmonary disease): Plan: Medically treat acute exacerbation is at this time Umeclidinium inhaled via vent (4) Depression: Plan: Continue BuSpar fluoxetine which seems stable (5) History of breast cancer: Plan: History of bilateral mastectomy in 2011 certainly raises concern with this locu lated effusion, continue anastrozole (6) Hypothyroidism: Plan: Continue Synthroid therapy (7) T2DM (type 2 diabetes mellitus): Plan: Hold Farxiga glipizide check hemoglobin A1c have insulin sliding scale we will not add glargine unless we need to holding lisinopril at this time (8) DVT prophylaxis: Plan: Heparin for DVT prevention Patient and her confirms she is a full code prior to admission however after cardiac arrest was made a conditional code Admission and Anticipated Discharge Date Admission Date: September 23, 2021 Subjective patient intubated and sedated d/w Dr. Swanson, he is managing patient, will stop casfofungin Review of Systems Review of Systems: Unobtainable due to cognitive status and Unobtainable due to endotracheal tube Physical Exam Physical Exam: General: well developed, well nourished, intubated and ventilated Neck: supple, trachea midline, normal thyroid Lungs: coarse sounds on left, clear on right, ventilated, right sided chest tube Heart: regular S1 and S2, no murmur, peripheral pulses normal, capillary refill normal, no edema Abdomen: soft, NT, ND, + BS, no hepatomegaly, normal to percussion Extremities: normal in appearance, no cyanosis, no petechiae Neuro: sedated, moves all extremities, no focal motor deficits, CN II-XII intact Skin: warm, dry, no rash, normal turgor Psych: sedated Results & Data Results & Data ([facility]) Vital Signs (Past 12 Hours) Vital Signs Temp Pulse Resp BP Pulse Ox 09/30/21 14:39 78 21 92 09/30/21 11:03 82 20 93 09/30/21 08:15 79 23 91 09/30/21 06:30 37.6 C H 79 16 110/60 90 09/30/21 06:15 37.6 C H 100 H 21 159/72 H 90 09/30/21 06:00 37.5 C 93 H 20 91 09/30/21 05:45 37.4 C 86 15 151/69 H 93 09/30/21 05:30 37.4 C 69 13 118/53 L 92 09/30/21 05:15 37.4 C 68 13 115/61 92 09/30/21 05:00 37.3 C 68 13 114/59 L 92 09/30/21 04:45 37.3 C 68 14 105/49 L 91 09/30/21 04:30 37.3 C 67 15 110/54 L 91 09/30/21 04:15 37.2 C 69 13 92/50 L 93 09/30/21 04:00 37.2 C 68 15 105/48 L 93 09/30/21 03:55 95 09/30/21 03:45 37.2 C 70 13 109/53 L 96 PG Care Time/CCT Total # of Minutes Spent Total Time Spent with Patient: Total time spent is greater than 50% in coordination of care (as documented) at patient's floor/unit and/or counseling patient: Coding Level of Care Code 53852 Subseq Hosp Care Lvl 2 Diagnoses Cardiac arrest I46.9 Pneumonia J18.9 COPD (chronic obstructive pulmonary disease) J44.9 Depression F32.9 History of breast cancer Z85.3 Hypothyroidism E03.9 T2DM (type 2 diabetes mellitus) E11.9 DVT prophylaxis Z29.9
[2021-09-30] MEDS: fentaNYL citrate 2,500 MCG/250 ML BAG IV SCH (20:27)
[2021-10-01] MEDS: DEXMEDETOMIDINE HCL 400 MCG in 0.9 % SODIUM CHLORIDE 96 ML IV SCH ×9 (00:22→22:11)
[2021-10-01] MEDS: NOREPINEPHRINE/D5W 8 MG/508 ML BAG IV SCH ×2 (01:22→18:20)
[2021-10-01] MEDS: TUBE FEEDING WATER FLUSH OG SCH ×5 (01:24→18:20)
[2021-10-01] MEDS: INSULIN REGULAR 250 UNITS in SODIUM CHLORIDE 0.9% 247.5 ML IV SCH (01:24)
[2021-10-01 03:57] LABS: iSTAT Art Bld Gas pCO2 Correct 71 mmHg (35-46); iSTAT Art Bld Gas pH Corrected 7.201 (7.35-7.45); iSTAT Arterial Blood Gas HCO3 28 meg/L (19-24); iSTAT Arterial Blood Gas pCO2 68 mmHg (35-46); iSTAT Arterial Blood Gas pH 7.21 (7.35-7.45); iSTAT Arterial Blood Gas pO2 80 mmHg (80-95); iSTAT Arterial Blood Gas pO2 C 86; iSTAT Carbon Dioxide 30 mmol/L (24-31); iSTAT FiO2 90 %; iSTAT Hematocrit 33 % (37-47); iSTAT Hemoglobin 11.2 g/dl (12.0-16.0); iSTAT Potassium 5.2 mmol/L (3.3-5.0); iSTAT Site R Radial; iSTAT Sodium 143 mmol/L (135-144)
[2021-10-01] MEDS: PIPERACILLIN/TAZOBACTAM 3.375 GM in DEXTROSE 5% 100 ML IV SCH ×3 (04:36→20:27)
[2021-10-01] MEDS: LEVOTHYROXINE SODIUM 50 MCG TABLET PO SCH (05:25)
[2021-10-01] MEDS: ACETAMINOPHEN 500 MG TAB PO PRN ×3 (05:25→20:25)
[2021-10-01 05:46] LABS: Basophils # (auto) 0.03 K/uL (0-0.2); Basophils % (auto) 0.2 %; Eosinophils # (auto) 0.11 K/uL (0-0.5); Eosinophils % (auto) 0.6 %; Hematocrit (blood only) 33.5 % (37-47); Hemoglobin 10.3 g/dL (12.0-16.0); Immature Granulocytes # (auto) 0.29 K/uL (0.00-0.02); Immature Granulocytes % (auto) 1.7 %; Lymphocytes # (auto) 1.17 K/uL (1.2-3.4); Lymphocytes % (auto) 6.9 %; Mean Corpuscular Hemoglobin 31.1 pg (25-34); Mean Corpuscular Hgb Conc 30.7 g/dL (32-36); Mean Corpuscular Volume 101.2 fL (80-100); Mean Platelet Volume 11.4 fL (7.4-10.4); Monocytes # (auto) 0.85 K/uL (0.11-0.59); Neutrophils # (auto) 14.51 K/uL (1.4-6.5); Neutrophils % (auto) 85.6 %; Nucleated RBC # (auto) 0.06 K/uL (0-0); Nucleated RBC % (auto) 0.4 %; Platelet Count 105 K/uL (130-400); RDW Coefficient of Variation 14.1 % (11.5-14.5); RDW Standard Deviation 52.3 fL (36.4-46.3); Red Blood Count 3.31 M/uL (4.2-5.4); White Blood Count 16.96 K/uL (4.8-10.8)
[2021-10-01 06:05] LABS: BUN Creatinine Ratio 47.5 (10-20); Calcium 7.8 mg/dl (8.5-10.1); Creatinine Clr Calc Pharmacy 38.3 ml/min; Est GFR (African American) 51.5 ml/min; Est GFR (Non-African American) 44.5 ml/min; Magnesium 1.9 mg/dl (1.7-2.4); Phosphorus 3.7 mg/dl (2.5-4.9); Potassium 5.1 mmol/L (3.5-5.1)
[2021-10-01] MEDS: ICU ELECTROLYTE REPLACEMENT PROTOCOL SCH ×2 (06:07→16:39)
[2021-10-01] MEDS: MAGNESIUM OXIDE 400 MG TAB PO SCH ×2 (06:35→10:26)
[2021-10-01] MEDS ORDERED: FUROSEMIDE 40 MG/4 ML VIAL IV ONE (07:58)
[2021-10-01] MEDS: SENNOSIDES 8.8 MG/5 ML UDC PO SCH ×2 (08:21→20:25)
[2021-10-01] MEDS: DOCUSATE SODIUM SYRUP 100 MG/10 ML UDC PO SCH ×2 (08:21→20:25)
[2021-10-01] MEDS: MULTI VIT W/MINERALS LIQUID 15 ML UDP NG SCH (08:25)
[2021-10-01] MEDS: ENOXAPARIN INJ 40 MG/0.4 ML SYR SQ SCH (08:26)
[2021-10-01] MEDS: LIDOCAINE 5% 1 PATCH TD SCH (08:27)
[2021-10-01] MEDS: POLYETHYLENE (MIRALAX) 17 GM PACK PO PRN (08:29)
[2021-10-01 08:30] LABS: iSTAT Allen Test Pass; iSTAT Art Bld Gas pCO2 Correct 67 mmHg (35-46); iSTAT Art Bld Gas pH Corrected 7.223 (7.35-7.45); iSTAT Arterial Blood Gas HCO3 27 meg/L (19-24); iSTAT Arterial Blood Gas pCO2 64 mmHg (35-46); iSTAT Arterial Blood Gas pH 7.24 (7.35-7.45); iSTAT Arterial Blood Gas pO2 73 mmHg (80-95); iSTAT Arterial Blood Gas pO2 C 78; iSTAT Carbon Dioxide 29 mmol/L (24-31); iSTAT FiO2 100 %; iSTAT Hematocrit 29 % (37-47); iSTAT Hemoglobin 9.9 g/dl (12.0-16.0); iSTAT Site R Radial; iSTAT Sodium 141 mmol/L (135-144)
[2021-10-01] MEDS: FLUoxetine HCL 20 MG/5 ML 120ML BTL PO SCH (08:30)
[2021-10-01] MEDS: FAMOTIDINE 20 MG in SYRINGE 3 ML IV SCH (08:30)
--- NOTE | 2021-10-01 08:47 | XRay Report ---
XR chest 1V portable HISTORY: 75 years-old Female Resp failure acute respiratory failure COMPARISON: Chest radiograph 09/30/2021 TECHNIQUE: Portable AP view of the chest FINDINGS: The endotracheal tube overlies the midline, 2.3 cm superior to the delonte. Right IJ central venous ca theter distal tip is noted in the expected location of the mid SVC. Enteric tube courses below the di aphragm with distal tip outside the [id number]. Cervical clips of the right axilla. Cardiomegaly. Extensive bilateral mixed interstitial and alveolar opacities with suggested small pleural effusions. Degenerative changes of the shoulders and spine. IMPRESSION: 1. Stable lines and tubes. 2. Generally stable extensive multifocal airspace opacities with suggested small pleural effusions. 3. No pneumothorax. ACT 112: Negative or not required by law. The above report was generated using voice recognition software. It may contain grammatical, syntax o r spelling errors. Electronically signed by: Carlos Lacey M.D. 10/01/2021 8:46 AM
[2021-10-01] MEDS ORDERED: SENNOSIDES 8.8 MG/5 ML UDC PO ONE (10:45)
[2021-10-01] MEDS ORDERED: PHARMACY GLYCEMIC MGMT CONSULT PRN (10:51)
--- NOTE | 2021-10-01 10:52 | Critical Care Progress Note ---
Date of Service October 01, 2021 Assessment & Plan (1) Cardiac arrest: (2) Heart failure: (3) Pleural effusion: (4) Aspiration pneumonia: (5) ARDS (adult respiratory distress syndrome): (6) Pneumothorax: (7) Acute encephalopathy: Plan: Neurologic: Her downtime after cardiac arrest was only approximately 6 minutes. Reintubated on 09/26, 2 hours after extubation due to encephalopathy and hypoxia. She was able to follow commands post extubation. Try to minimize sedation. She did follow commands post extubation on 09/26. CT head negative for acute disease post cardiac arrest 09/24. Chronic lacunar infarcts identified. MRI Brain 09/29 doesn't show signs of anoxia. No acute changes Pulmonary: --Acute hypoxic respiratory failure Diffuse bilateral infiltrates with pleural effusion Continue with antibiotics --S/p hydropneumothorax on the right Pigtail catheter removed 09/29/2021 Fluid cytology negative for malignancy Cultures negative from pleural fluid Cardiovascular: --Shock Combination of cardiogenic plus septic Echo with an LVEF that is normal. RVSP 30-40. Moderate mitral annular calcification. Continue maintain mean arterial pressure above 65 mmHg. Hypothermia process complete. Gastrointestinal: Continue tube feeds. LFT stable from 09/26. Renal: No significant issues. Monitor urine output closely. No significant issues. ICU electrolyte replacement protocol Infectious disease: Cultures negative to date from blood and pleural fluid. MRSA screen negative. Procal 4.58 09/25 >>1.84 09/27. . Continue Zosyn empirically. Caspofungin initiated 09/28 Sputum culture 09/30/2021: Growing gram-negative bacilli Hematologic: No significant issues at present. Hgb stable. Endocrine: ICU hypoglycemia protocol --Prophylaxis VTE: Lovenox GI: Pepcid Lines:Intubated 09/24/2021, reintubated 09/26, IJ in place 09/24. Right pigtail catheter placed 09/25 dc'd 09/29 Diet: N.p.o. Plan: In/out: -123, urine output 20-40, +9.2 L since coming to the hospital AB.21/68/80 on PEEP of 5, 80% Patient was put on PRVC and respiratory was increased to minute ventilation of 10.2 L. Chest x-ray from today shows mild improvement in the right side alveolar opacities. Left side elbow opacity still persist Patient got total of 80 mg of Lasix yesterday. Give another 40 mg of Lasix today. Sputum culture is growing gram-negative bacilli. Continue with Zosyn. Follow- up sensitivity Potassium is 5.1. Overall prognosis is guarded I did speak with the patient's and sons bedside 09/30/2021. We will see if there is any improvement while the patient is off sedation in the next 24 hours if there is no improvement then we will go towards comfort measures I have personally spent 37 minutes of critical care time in the direct management of this patient. This is a life/limb threatening event. This includes time spent evaluating patient, direct bedside care, chart review, placing orders, interpretation of diagnostic studies, discussion with consultants, patient, and family members, as well as other required patient management activities. This time is exclusive of all separately billable procedures, and teaching time and separate from and in addition to any other critical care service time. Thank you for allowing us to participate in the care of this patient. Admission and Anticipated Discharge Date Admission Date: September 23, 2021 Subjective Patient seen and examined at bedside. She still spiking fever T-max 38.3 Overnight patient was put on vent control assist control but she was again bucking the vent. She was 100 of fentanyl and 1.3 of Precedex at time of examination She is not following any commands Review of Systems Review of Systems: Unobtainable due to endotracheal tube Physical Exam Physical Exam: Constitutional: No acute distress HEENT: Sluggish pupillary response Respiratory system: Decreased air entry bilaterally, no wheeze, no rebound positive crackles bilaterally CVS: S1-S2 positive Abdomen: Soft, nontender, nondistended, positive bowel sounds x4 Extremities: +2 pulses bilaterally radialis/ dorsalis pedis, no cyanosis, no edema Neuro: Breathing over the vent, sluggish pupillary response, positive gag Psych: Unable to assess G/U: Positive [place] Skin: no rashes, warm and dry Lymphatic: no cervical or axillary lymphadenopathy Results & Data Results & Data ([facility]) Vital Signs (Past 12 Hours) Vital Signs Temp Pulse Resp BP Pulse Ox 10/01/21 08:35 83 27 H 92 10/01/21 07:09 86 18 90 10/01/21 06:30 38.3 C H 109 H 25 H 150/78 H 90 10/01/21 06:00 38.3 C H 90 22 109/54 L 91 10/01/21 05:30 38.2 C H 93 H 22 118/56 L 90 10/01/21 05:00 38.2 C H 90 22 115/56 L 90 10/01/21 04:30 38.1 C H 89 22 114/54 L 90 10/01/21 04:00 38.0 C H 87 22 109/53 L 90 10/01/21 03:30 38.0 C H 84 15 96/51 L 92 10/01/21 03:15 83 25 H 91 10/01/21 03:00 37.9 C H 81 14 100/54 L 91 10/01/21 02:30 37.7 C H 81 14 97/47 L 91 10/01/21 02:00 37.6 C H 80 14 99/46 L 92 10/01/21 01:30 37.5 C 79 13 96/49 L 92 10/01/21 01:00 37.4 C 80 14 99/49 L 92 10/01/21 00:30 37.3 C 79 13 89/44 L 91 10/01/21 00:00 37.3 C 78 14 84/52 L 90 09/30/21 23:30 37.3 C 82 13 87/45 L 93 09/30/21 23:25 81 14 93 09/30/21 23:00 37.5 C 88 76/49 L 93 Laboratory Results 10/01/21 05:31 10/01/21 05:31 Coding Level of Care Code Critical Care 1st 30-74 mins Diagnoses Cardiac arrest I46.9 Heart failure I50.9 Pleural effusion J90 Aspiration pneumonia J69.0 ARDS (adult respiratory distress syndrome) J80 Pneumothorax J93.9 Acute encephalopathy G93.40 Time Spent (min) 37
[2021-10-01] MEDS ORDERED: INSULIN GLARGINE SOLOSTAR 100 UNITS/ML 3 ML PEN SC ONE (11:00)
[2021-10-01] MEDS: UMECLIDINIUM BROMIDE 62.5MCG/BLISTER 7 PUFFS/INHALER INH SCH (11:36)
[2021-10-01] MEDS: fentaNYL citrate 2,500 MCG/250 ML BAG IV SCH ×2 (11:36→22:12)
[2021-10-01] MEDS: INSULIN ASPART PER UNIT SC SCH ×3 (12:57→20:06)
--- NOTE | 2021-10-01 13:21 | Pharmacy Report ---
Pharmacy Glycemic Short Note 2 - Date of Service October 01, 2021 - Glycemic Short BSG Results (Last 24 hours): 09/30/21 09/30/21 09/30/21 14:37 18:31 22:37 Glucose POC Glucose 126 H 146 H 137 H 10/01/21 10/01/21 10/01/21 02:12 05:31 06:17 Glucose 147 H POC Glucose 125 H 142 H 10/01/21 10/01/21 10:36 12:48 Glucose POC Glucose 176 H 168 H OUTPATIENT ANTIDIABETIC REGIMEN: * Glipizide * Dapagliflozin * HbA1c 9.7% on 09/24/21 ASSESSMENT: * 75 yo F with T2DM on stable insulin drip rate >24 hours at 3.6 units/hr. Pharmacy consulted for drip transition management * Peptamen VHP rate went from 50 to 30 mL/hr per ICU rounds discussion * Will give slightly less than 50% of total daily insulin drip rate as Lantus. Will schedule Novolog CHO coverage with fixed CHO ratio. * Transition criteria: BOTH drip rate less than 1 unit/hr AND BSG less than 180 mg/dL x2 consecutive checks. Will then stop drip add in a correction factor on Novolog PLAN FOR INPATIENT GLYCEMIC CONTROL: * Hold outpatient oral diabetes medications * Basal insulin * Lantus 35 units SQ x1 now. Additional 10 units tonight if insulin drip rate > 2 units/hr * Bolus insulin * NovoLog q4h * Goal Range: Low 110 mg/dL - High 140 mg/dL * Nutritional / Prandial insulin per carb ratio of 1 unit per 7 grams CHO in Peptamen VHP PLAN FOR DISCHARGE: * tbd
--- NOTE | 2021-10-01 14:50 | Ultrasound Report ---
LEFT UPPER EXTREMITY VENOUS DOPPLER HISTORY: new onset edema to L upper extremity COMPARISON STUDY: None. FINDINGS: The left internal jugular vein is patent. There is normal flow within the left subclavian v ein. There is normal flow and compressibility within the left axillary, basilic, brachial, radial, ul pelon, and visualized cephalic veins. IMPRESSION: No DVT within the left upper extremity. ACT 112: Negative or not required by law. Electronically signed by: Chris Elizondo M.D. 10/01/2021 2:48 PM
--- NOTE | 2021-10-01 20:56 | Hospitalist Progress Note ---
Date of Service October 01, 2021 Assessment & Plan (1) Cardiac arrest: Plan: Remains in the ICU with intubation ventilation after failing extubation on 09/26 for 4 hours was reintubated, sedation continues. Echocardiogram shows preserved ejection fraction and wall motion abnormality with right-sided elevated pressures likely consistent with her chronic smoking. Mild troponin leak could be from cardiac contusion from CPR or from shock did require pressors for period of time was unconscious s/p cardiac arrest with external cooling now reversed she was following commands after her arrest and on 09/26 when she failed extubation guarded prognosis, she is DNR but family wants ventilator (2) Pneumonia: Plan: Right lower lobe pneumonia with loculated pleural effusion at the right base consistent possibly with aspiration or gram-negative pneumonia patient be continued on Zosyn therapy. 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, noted by Dr Alexander with watchful waiting continue Zosyn, Caspofungin is off (3) COPD (chronic obstructive pulmonary disease): Plan: Medically treat acute exacerbation is at this time Umeclidinium inhaled via vent (4) Depression: Plan: Continue BuSpar fluoxetine which seems stable (5) History of breast cancer: Plan: History of bilateral mastectomy in 2011 certainly raises concern with this loculated effusion, continue anastrozole (6) Hypothyroidism: Plan: Continue Synthroid therapy (7) T2DM (type 2 diabetes mellitus): Plan: Hold Farxiga glipizide check hemoglobin A1c have insulin sliding scale we will not add glargine unless we need to holding lisinopril at this time (8) DVT prophylaxis: Plan: Heparin for DVT prevention Patient and her confirms she is a full code prior to admission however after cardiac arrest was made a conditional code Admission and Anticipated Discharge Date Admission Date: September 23, 2021 Subjective no major changes, she continues to fail SBT Dr. Swanson managing Review of Systems Review of Systems: Unobtainable due to cognitive status and Unobtainable due to endotracheal tube Physical Exam Physical Exam: General: well developed, well nourished, intubated and ventilated Neck: supple, trachea midline, normal thyroid Lungs: coarse sounds on left, clear on right, ventilated, right sided chest tube Heart: regular S1 and S2, no murmur, peripheral pulses normal, capillary refill normal, no edema Abdomen: soft, NT, ND, + BS, no hepatomegaly, normal to percussion Extremities: normal in appearance, no cyanosis, no petechiae Neuro: sedated, no focal motor deficits, CN II-XII intact Skin: warm, dry, no rash, normal turgor Psych: sedated Results & Data Results & Data ([facility]) Vital Signs (Past 12 Hours) Vital Signs Temp Pulse Resp BP Pulse Ox 10/01/21 19:04 95 H 29 H 96 10/01/21 17:30 38.1 C H 115 H 24 145/64 H 92 10/01/21 17:01 38.2 C H 117 H 25 H 165/73 H 93 10/01/21 17:00 38.2 C H 115 H 27 H 10/01/21 16:30 38.1 C H 101 H 25 H 111/57 L 94 10/01/21 16:00 38.2 C H 100 H 29 H 87/49 L 94 10/01/21 15:30 38.2 C H 104 H 30 H 98/50 L 98 10/01/21 15:00 38.2 C H 117 H 20 116/60 94 10/01/21 14:59 115 H 25 H 93 10/01/21 14:30 38.2 C H 121 H 22 121/63 92 10/01/21 14:00 38.2 C H 121 H 23 122/64 91 10/01/21 13:30 38.3 C H 122 H 22 122/69 91 10/01/21 13:00 38.3 C H 124 H 23 131/66 93 10/01/21 12:30 38.4 C H 124 H 22 137/75 92 10/01/21 12:00 38.4 C H 127 H 23 161/94 H 92 10/01/21 11:31 38.4 C H 121 H 25 H 177/88 H 93 10/01/21 11:00 38.6 C H 95 H 31 H 121/64 91 10/01/21 10:46 89 30 H 92 10/01/21 10:00 38.3 C H 88 24 109/55 L 92 10/01/21 09:30 38.2 C H 87 23 112/58 L 92 10/01/21 09:00 38.1 C H 85 24 115/56 L 92 Laboratory Results Laboratory Results - last 24 hr 09/30/21 10/01/21 10/01/21 22:37 02:12 03:43 WBC RBC Hgb POC Hgb 11.2 L Hct POC Hct 33 L MCV MCH MCHC RDW Std Deviation RDW Coeff of Vishal Plt Count MPV Immature Gran % (Auto) Neut % (Auto) Lymph % (Auto) [place] % (Auto) Eos % (Auto) Baso % (Auto) Neut # (Auto) Lymph # (Auto) [place] # (Auto) Eos # (Auto) Baso # (Auto) Immature Gran # (Auto) Absolute Nucleated RBC Nucleated RBC % (auto) Sample Site R Radial POC pH 7.21 L POC pCO2 68 H POC pO2 80 POC HCO3 28 H POC Total CO2 30 POC Base Excess 0.0 ABG pH (Temp Correct) 7.201 L ABG pCO2 (Temp Corrct 71 H POC ABG pO2 at Pt Temp 86 POC ABG O2 Sat 92.0 Hector Test NA O2 Delivery Device Ventilator POC FiO2 90 PEEP 5 POC Sodium 143 Sodium POC Potassium 5.2 H Potassium Chloride Carbon Dioxide Anion Gap BUN Creatinine Est Cr Clr Drug Dosing Est GFR ( Amer) Est GFR (Non-Af Amer) BUN/Creatinine Ratio Glucose POC Glucose 137 H 125 H Calcium Phosphorus Magnesium 10/01/21 10/01/21 10/01/21 05:31 05:31 06:17 WBC 16.96 H RBC 3.31 L Hgb 10.3 L POC Hgb Hct 33.5 L POC Hct MCV 101.2 H MCH 31.1 MCHC 30.7 L RDW Std Deviation 52.3 H RDW Coeff of Vishal 14.1 Plt Count 105 L MPV 11.4 H Immature Gran % (Auto) 1.7 Neut % (Auto) 85.6 Lymph % (Auto) 6.9 [place] % (Auto) 5.0 Eos % (Auto) 0.6 Baso % (Auto) 0.2 Neut # (Auto) 14.51 H Lymph # (Auto) 1.17 L [place] # (Auto) 0.85 H Eos # (Auto) 0.11 Baso # (Auto) 0.03 Immature Gran # (Auto) 0.29 H Absolute Nucleated RBC 0.06 H Nucleated RBC % (auto) 0.4 Sample Site POC pH POC pCO2 POC pO2 POC HCO3 POC Total CO2 POC Base Excess ABG pH (Temp Correct) ABG pCO2 (Temp Corrct POC ABG pO2 at Pt Temp POC ABG O2 Sat Hector Test O2 Delivery Device POC FiO2 PEEP POC Sodium Sodium 141 POC Potassium Potassium 5.1 Chloride 109 H Carbon Dioxide 26 Anion Gap 6 BUN 56 H Creatinine 1.18 Est Cr Clr Drug Dosing 38.3 Est GFR ( Amer) 51.5 Est GFR (Non-Af Amer) 44.5 BUN/Creatinine Ratio 47.5 H Glucose 147 H POC Glucose 142 H Calcium 7.8 L Phosphorus 3.7 Magnesium 1.9 10/01/21 10/01/21 10/01/21 08:17 10:36 12:48 WBC RBC Hgb POC Hgb 9.9 L Hct POC Hct 29 L MCV MCH MCHC RDW Std Deviation RDW Coeff of Vishal Plt Count MPV Immature Gran % (Auto) Neut % (Auto) Lymph % (Auto) [place] % (Auto) Eos % (Auto) Baso % (Auto) Neut # (Auto) Lymph # (Auto) [place] # (Auto) Eos # (Auto) Baso # (Auto) Immature Gran # (Auto) Absolute Nucleated RBC Nucleated RBC % (auto) Sample Site R Radial POC pH 7.24 L POC pCO2 64 H POC pO2 73 L POC HCO3 27 H POC Total CO2 29 POC Base Excess 0.0 ABG pH (Temp Correct) 7.223 L ABG pCO2 (Temp Corrct 67 H POC ABG pO2 at Pt Temp 78 POC ABG O2 Sat 91.0 Hector Test Pass O2 Delivery Device Ventilator POC FiO2 100 PEEP 5 POC Sodium 141 Sodium POC Potassium 5.0 Potassium Chloride Carbon Dioxide Anion Gap BUN Creatinine Est Cr Clr Drug Dosing Est GFR ( Amer) Est GFR (Non-Af Amer) BUN/Creatinine Ratio Glucose POC Glucose 176 H 168 H Calcium Phosphorus Magnesium 10/01/21 10/01/21 10/01/21 15:28 17:05 18:05 WBC RBC Hgb POC Hgb Hct POC Hct MCV MCH MCHC RDW Std Deviation RDW Coeff of Vishal Plt Count MPV Immature Gran % (Auto) Neut % (Auto) Lymph % (Auto) [place] % (Auto) Eos % (Auto) Baso % (Auto) Neut # (Auto) Lymph # (Auto) [place] # (Auto) Eos # (Auto) Baso # (Auto) Immature Gran # (Auto) Absolute Nucleated RBC Nucleated RBC % (auto) Sample Site POC pH POC pCO2 POC pO2 POC HCO3 POC Total CO2 POC Base Excess ABG pH (Temp Correct) ABG pCO2 (Temp Corrct POC ABG pO2 at Pt Temp POC ABG O2 Sat Hector Test O2 Delivery Device POC FiO2 PEEP POC Sodium Sodium POC Potassium Potassium Chloride Carbon Dioxide Anion Gap BUN Creatinine Est Cr Clr Drug Dosing Est GFR ( Amer) Est GFR (Non-Af Amer) BUN/Creatinine Ratio Glucose POC Glucose 178 H 269 H 179 H Calcium Phosphorus Magnesium 10/01/21 20:00 WBC RBC Hgb POC Hgb Hct POC Hct MCV MCH MCHC RDW Std Deviation RDW Coeff of Vishal Plt Count MPV Immature Gran % (Auto) Neut % (Auto) Lymph % (Auto) [place] % (Auto) Eos % (Auto) Baso % (Auto) Neut # (Auto) Lymph # (Auto) [place] # (Auto) Eos # (Auto) Baso # (Auto) Immature Gran # (Auto) Absolute Nucleated RBC Nucleated RBC % (auto) Sample Site POC pH POC pCO2 POC pO2 POC HCO3 POC Total CO2 POC Base Excess ABG pH (Temp Correct) ABG pCO2 (Temp Corrct POC ABG pO2 at Pt Temp POC ABG O2 Sat Hector Test O2 Delivery Device POC FiO2 PEEP POC Sodium Sodium POC Potassium Potassium Chloride Carbon Dioxide Anion Gap BUN Creatinine Est Cr Clr Drug Dosing Est GFR ( Amer) Est GFR (Non-Af Amer) BUN/Creatinine Ratio Glucose POC Glucose 128 H Calcium Phosphorus Magnesium Medications Administered Current Inpatient Medications Acetaminophen (Acetaminophen 500 Mg Tab) 1,000 mg PO Q6H PRN PRN Reason: pain -02/07 Stop: 10/23/21 15:07 Last Admin: 10/01/21 20:25 Dose: 1,000 mg Documented by: Al Hydrox/Mg Hydrox/Simethicone (Aluminum/Magnesium Susp 30 Ml Udc) 30 ml PO Q6H PRN PRN Reason: Dyspepsia Stop: 10/23/21 15:25 Albuterol (Albuterol Hfa 8 Gm Inhaler) 1 puffs INH Q4R PRN PRN Reason: shortness of breath or wheezing Stop: 10/23/21 11:47 Albuterol (Albut/Ipratrop 3mg/0.5mg Neb 3 Ml Vial) 3 ml NEB Q6R PRN; Protocol PRN Reason: Shortness Of Breath Or Wheezing Stop: 10/25/21 04:52 Dextrose (Dextrose 50% 50 Ml Syringe) 25 - 50 ml IV UD PRN; Protocol PRN Reason: Hypoglycemia Protocol Stop: 10/23/21 11:47 Last Admin: 09/25/21 22:55 Dose: 50 ml Documented by: Docusate Sodium (Docusate Sodium Syrup 100 Mg/10 Ml Udc) 100 mg PO BID [facility] Stop: 10/30/21 10:44 Last Admin: 10/01/21 20:25 Dose: 100 mg Documented by: Enoxaparin Sodium (Enoxaparin Inj 40 Mg/0.4 Ml Syr) 40 mg SQ QAM [facility] Stop: 10/27/21 14:59 Last Admin: 10/01/21 08:26 Dose: 40 mg Documented by: Fentanyl Citrate (Fentanyl Bolus From Bag) 50 mcg IV Q60M PRN PRN Reason: Pain or Agitation Stop: 10/10/21 13:45 Last Admin: 09/30/21 19:26 Dose: 50 mcg Documented by: Fluoxetine HCl (Fluoxetine Hcl 20 Mg/5 Ml 120ml Btl) 40 mg PO QAM [facility] Stop: 10/25/21 10:59 Last Admin: 10/01/21 08:30 Dose: 40 mg Documented by: Glucagon (Glucagon For Inj 1 Mg Vial) 1 mg SQ UD PRN; Protocol PRN Reason: Hypoglycemia Protocol Stop: 10/23/21 11:47 Glucose (Glucose 10 Tabs/Tube) 4 - 8 tabs PO UD PRN; Protocol PRN Reason: Hypoglycemia Protocol Stop: 10/23/21 11:47 Glucose (Glucose 40% Gel 15 Gm Tube) 15 - 30 gm PO UD PRN; Protocol PRN Reason: Hypoglycemia Protocol Stop: 10/23/21 11:47 Piperacillin Sod/Tazobactam (Sod 3.375 gm/ Dextrose) 115 mls @ 28.75 mls/hr IV Q8H [facility]; Protocol Stop: 10/03/21 12:59 Last Admin: 10/01/21 20:27 Dose: 28.7 mls/hr Documented by: Insulin Human Regular 250 (units/ Sodium Chloride) 250 mls @ 2.1 mls/hr IV .Q24H [facility]; Protocol Stop: 10/25/21 06:14 Last Titration: 10/01/21 20:07 Dose: 2.1 units/hr, 2.1 mls/hr Documented by: Famotidine 20 mg/ Syringe 5 mls @ 2.5 mls/min IV QAM [facility] Stop: 10/26/21 08:59 Last Admin: 10/01/21 08:30 Dose: 2.5 mls/min Documented by: Fentanyl Citrate (Fentanyl Citrate) 2,500 mcg in 250 mls @ 10 mls/hr IV .Q25H [facility]; Protocol Stop: 10/10/21 13:59 Last Titration: 10/01/21 19:13 Dose: 100 mcg/hr, 10 mls/hr Documented by: Norepinephrine Bitartrate (Levophed/D5w) 8 mg in 508 mls @ 14.897 mls/hr IV .Q24H [facility]; Protocol Stop: 10/26/21 18:44 Last Titration: 10/01/21 19:13 Dose: 0.05 mcg/kg/min, 14.9 mls/hr Documented by: Dexmedetomidine HCl 400 mcg/ (Sodium Chloride) 100 mls @ 15.64 mls/hr IV .Q6H24M [facility]; Protocol Stop: 10/04/21 11:29 Last Titration: 10/01/21 19:13 Dose: 0.8 mcg/kg/hr, 15.6 mls/hr Documented by: Insulin Aspart (Insulin Aspart Per Unit) 0 units SC Q4 [facility] Stop: 10/31/21 11:59 Last Admin: 10/01/21 20:06 Dose: 1 units Documented by: Insulin Glargine (Insulin Glargine Solostar 100 Units/Ml 3 Ml Pen) 0 units SC TODAY@0000 ONE; Protocol Stop: 10/02/21 00:01 Levothyroxine Sodium (Levothyroxine Sodium 50 Mcg Tablet) 50 mcg PO DAILYBB [facility] Stop: 10/23/21 12:29 Last Admin: 10/01/21 05:25 Dose: 50 mcg Documented by: Miscellaneous (Carbohydrates For Hypoglycemia ) 15 - 30 gm PO UD PRN PRN Reason: Hypoglycemia Protocol Stop: 10/23/21 11:47 Miscellaneous (Remove Lidoderm Patch) 1 ea N/A Q24H [facility] Stop: 10/01/21 23:59 Last Admin: 10/01/21 20:27 Dose: 1 ea Documented by: Miscellaneous (Icu Electrolyte Replacement Protocol) 1 ea N/A BID@06,18 [facility]; Protocol Stop: 10/04/21 17:59 Last Admin: 10/01/21 16:39 Dose: Not Given Documented by: Miscellaneous (Pending Order) 1 ea N/A QS [facility] Stop: 10/31/21 15:59 Last Admin: 10/01/21 16:37 Dose: Not Given Documented by: Miscellaneous Information (Piperacill/Tazobac Consult Active) 1 ea N/A UD PRN PRN Reason: Consult Stop: 10/23/21 07:45 Miscellaneous Information (Pharmacy Glycemic Mgmt Consult) 1 ea N/A UD PRN PRN Reason: Consult Stop: 10/31/21 10:50 Multi-Ingredient Cream (Artificial Tears Op Oint 3.5 Gm Tube) 1 appln OP Q2H PRN PRN Reason: eye protection Stop: 10/24/21 22:04 Multivitamins/Minerals (Multi Vit W/Minerals Liquid 15 Ml Udp) 15 ml NG QAM [facility] Stop: 10/28/21 08:59 Last Admin: 10/01/21 08:25 Dose: 15 ml Documented by: Nutritional Formula (Peptamen Intense Vhp 1.0 Scott 1,000 Ml Bag) 1,000 ml [place] [facility] [place] Protocol Stop: 10/27/21 14:29 Last Admin: 09/30/21 19:25 Dose: 1,000 ml Documented by: Ondansetron HCl (Ondansetron Inj 2 Mg/Ml 2 Ml Vial) 4 mg IV Q6H PRN PRN Reason: Nausea Stop: 10/23/21 15:25 Polyethylene Glycol (Polyethylene (Miralax) 17 Gm Pack) 17 gm PO DAILY PRN PRN Reason: Constipation Stop: 10/23/21 15:25 Last Admin: 10/01/21 08:29 Dose: 17 gm Documented by: Sennosides (Sennosides 8.8 Mg/5 Ml Ud) 17.6 mg PO BID [facility] Stop: 10/31/21 20:59 Last Admin: 10/01/21 20:25 Dose: 17.6 mg Documented by: Sterile Water (Tube Feeding Water Flush) 30 ml OG Q4H [facility] Stop: 10/27/21 14:29 Last Admin: 10/01/21 18:20 Dose: 30 ml Documented by: Umeclidinium [place] (Umeclidinium [place] 62.5mcg/Blister 7 Puffs/Inhaler) 1 puffs INH DAILY [facility] Stop: 10/23/21 12:29 Last Admin: 10/01/21 11:36 Dose: Not Given Documented by: PG Care Time/CCT Total # of Minutes Spent Total Time Spent with Patient: Total time spent is greater than 50% in coordination of care (as documented) at patient's floor/unit and/or counseling patient: Coding Level of Care Code 98379 Subseq Hosp Care Lvl 2 Diagnoses Cardiac arrest I46.9 Pneumonia J18.9 COPD (chronic obstructive pulmonary disease) J44.9 Depression F32.9 History of breast cancer Z85.3 Hypothyroidism E03.9 T2DM (type 2 diabetes mellitus) E11.9 DVT prophylaxis Z29.9
[2021-10-02] MEDS: TUBE FEEDING WATER FLUSH OG SCH ×5 (00:18→13:44)
[2021-10-02] MEDS: INSULIN ASPART PER UNIT SC SCH ×5 (00:18→15:41)
[2021-10-02] MEDS: PEPTAMEN INTENSE VHP 1.0 CAL 1,000 ML BAG OG SCH (01:21)
[2021-10-02] MEDS: PIPERACILLIN/TAZOBACTAM 3.375 GM in DEXTROSE 5% 100 ML IV SCH ×2 (04:09→12:33)
[2021-10-02] MEDS: DEXMEDETOMIDINE HCL 400 MCG in 0.9 % SODIUM CHLORIDE 96 ML IV SCH ×2 (04:10→10:16)
[2021-10-02 04:49] LABS: iSTAT Arterial Blood Gas HCO3 28 meg/L (19-24); iSTAT Arterial Blood Gas pCO2 53 mmHg (35-46); iSTAT Arterial Blood Gas pH 7.34 (7.35-7.45); iSTAT Arterial Blood Gas pO2 111 mmHg (80-95); iSTAT Carbon Dioxide 30 mmol/L (24-31); iSTAT Site R Radial
[2021-10-02 05:02] LABS: Hematocrit (blood only) 32.1 % (37-47); Hemoglobin 9.7 g/dL (12.0-16.0); Mean Corpuscular Hemoglobin 30.3 pg (25-34); Mean Corpuscular Hgb Conc 30.2 g/dL (32-36); Mean Corpuscular Volume 100.3 fL (80-100); RDW Coefficient of Variation 14.3 % (11.5-14.5); RDW Standard Deviation 52.2 fL (36.4-46.3); White Blood Count 15.29 K/uL (4.8-10.8)
[2021-10-02 05:29] LABS: Phosphorus 2.6 mg/dl (2.5-4.9)
[2021-10-02 05:43] LABS: Basophils # (auto) 0.04 K/uL (0-0.2); Basophils % (auto) 0.3 %; Eosinophils # (auto) 0.16 K/uL (0-0.5); Immature Granulocytes # (auto) 0.19 K/uL (0.00-0.02); Immature Granulocytes % (auto) 1.2 %; Lymphocytes # (auto) 1.19 K/uL (1.2-3.4); Lymphocytes % (auto) 7.8 %; Mean Platelet Volume 11.9 fL (7.4-10.4); Monocytes # (auto) 0.72 K/uL (0.11-0.59); Monocytes % (auto) 4.7 %; Neutrophils # (auto) 12.99 K/uL (1.4-6.5); Platelet Count 74 K/uL (130-400); Platelet Estimate Decreased (Normal)
[2021-10-02 06:11] LABS: BUN Creatinine Ratio 53.3 (10-20); Calcium 7.9 mg/dl (8.5-10.1); Creatinine Clr Calc Pharmacy 37.1 ml/min; Est GFR (African American) 49.5 ml/min; Est GFR (Non-African American) 42.7 ml/min; Magnesium 2.1 mg/dl (1.7-2.4); Potassium 4.4 mmol/L (3.5-5.1)
[2021-10-02] MEDS: LEVOTHYROXINE SODIUM 50 MCG TABLET PO SCH (06:14)
[2021-10-02] MEDS: ICU ELECTROLYTE REPLACEMENT PROTOCOL SCH ×2 (06:36→17:00)
--- NOTE | 2021-10-02 08:17 | XRay Report ---
XR chest 1V portable HISTORY: Respiratory failure. COMPARISON: Chest 10/01/2021. FINDINGS: Trace bilateral pleural fusions. The heart remains mildly enlarged. Satisfactory support li ne placement with the endotracheal tube terminating 1.6 cm from the delonte. Bilateral airspace opacit ies, left greater than right have slightly improved. IMPRESSION: 1. Satisfactory support line placement. 2. Slight improvement in the bilateral airspace opacities consistent with a pneumonia. ACT 112: Negative or not required by law. Electronically signed by: Chris Elizondo M.D. 10/02/2021 8:16 AM
[2021-10-02] MEDS: UMECLIDINIUM BROMIDE 62.5MCG/BLISTER 7 PUFFS/INHALER INH SCH (08:38)
[2021-10-02] MEDS: DOCUSATE SODIUM SYRUP 100 MG/10 ML UDC PO SCH (08:40)
[2021-10-02] MEDS: MULTI VIT W/MINERALS LIQUID 15 ML UDP NG SCH (08:40)
[2021-10-02] MEDS: FLUoxetine HCL 20 MG/5 ML 120ML BTL PO SCH (08:40)
[2021-10-02] MEDS: SENNOSIDES 8.8 MG/5 ML UDC PO SCH (08:40)
[2021-10-02] MEDS: FAMOTIDINE 20 MG in SYRINGE 3 ML IV SCH (08:44)
--- NOTE | 2021-10-02 09:50 | Critical Care Progress Note ---
Date of Service October 02, 2021 Assessment & Plan (1) Cardiac arrest: (2) Heart failure: (3) Pleural effusion: (4) Aspiration pneumonia: (5) ARDS (adult respiratory distress syndrome): (6) Pneumothorax: (7) Acute encephalopathy: Plan: Neurologic: Her downtime after cardiac arrest was only approximately 6 minutes. Reintubated on 09/26, 2 hours after extubation due to encephalopathy and hypoxia. She was able to follow commands post extubation. Try to minimize sedation. She did follow commands post extubation on 09/26. CT head negative for acute disease post cardiac arrest 09/24. Chronic lacunar infarcts identified. MRI Brain 09/29 doesn't show signs of anoxia. No acute changes --Large acute stroke CT head 10/02/21: There are large subacute/evolving bilateral territorial infarcts as detail above. Ammonia 79 --> patient on lactulose Follow-up TSH Pulmonary: --Acute hypoxic respiratory failure Diffuse bilateral infiltrates with pleural effusion Continue with antibiotics --S/p hydropneumothorax on the right Pigtail catheter removed 09/29/2021 Fluid cytology negative for malignancy Cultures negative from pleural fluid Cardiovascular: --Shock Combination of cardiogenic plus septic Echo with an LVEF that is normal. RVSP 30-40. Moderate mitral annular calcification. Continue maintain mean arterial pressure above 65 mmHg. Hypothermia process complete. --Swollen left upper extremity Doppler left upper extremity negative for DVT Gastrointestinal: Continue tube feeds. LFT stable from 09/26. Renal: No significant issues. Monitor urine output closely. No significant issues. ICU electrolyte replacement protocol Infectious disease: Cultures negative to date from blood and pleural fluid. MRSA screen negative. Procal 4.58 09/25 >>1.84 09/27. Caspofungin initiated 09/28-- Dc 09/30 Sputum culture 09/30/2021: Growing gram-negative bacilli Hematologic: No significant issues at present. Hgb stable. Endocrine: ICU hypoglycemia protocol --Prophylaxis VTE: Lovenox GI: Pepcid Lines:Intubated 09/24/2021, reintubated 09/26, IJ in place 09/24. Right pigtail catheter placed 09/25 dc'd 09/29 Diet: Tube feeds Plan: In/out: -102, urine output 1745 AB.34/53/111 80/8 ET tube was advanced by 2 cm overnight. It is approximately 1.8 cm above the delonte. Patient's repeat CT head today shows large acute stroke We will start the patient on aspirin Oral prognosis is poor Whether to pursue doing a 2D echo as well as ultrasound of carotids will be de cided after talking with the family Neurology has been consulted Overall prognosis is very poor I have personally spent 40 minutes of critical care time in the direct management of this patient. This is a life/limb threatening event. This includes time spent evaluating patient, direct bedside care, chart review, placing orders, interpretation of diagnostic studies, discussion with consultants, patient, and family members, as well as other required patient management activities. This time is exclusive of all separately billable procedures, and teaching time and separate from and in addition to any other critical care service time. Thank you for allowing us to participate in the care of this patient. Admission and Anticipated Discharge Date Admission Date: September 23, 2021 Subjective Patient seen and examined at bedside. No acute distress Patient was breathing over the vent She still spiking fever T-max 38.3 Did have bowel movement Does not follow commands On Precedex 0.7 and fentanyl 50 at the time of examination Review of Systems Review of Systems: Unobtainable due to endotracheal tube Physical Exam Physical Exam: Constitutional: No acute distress HEENT: Pinpoint pupils Respiratory system: Decreased air entry bilaterally, no wheeze, no rebound positive crackles bilaterally CVS: S1-S2 positive Abdomen: Soft, nontender, nondistended, positive bowel sounds x4 Extremities: +2 pulses bilaterally radialis/ dorsalis pedis, no cyanosis, no edema Neuro: Breathing over the vent, no gag today Psych: Unable to assess G/U: Positive [place] Skin: no rashes, warm and dry Lymphatic: no cervical or axillary lymphadenopathy Results & Data Results & Data ([facility]) Vital Signs (Past 12 Hours) Vital Signs Temp Pulse Resp BP Pulse Ox 10/02/21 09:00 37.9 C H 118 H 25 H 133/79 91 10/02/21 08:00 38.0 C H 119 H 24 134/73 10/02/21 07:25 123 H 26 H 88 L 10/02/21 07:00 38.1 C H 99 H 24 164/78 H 94 10/02/21 06:30 38.0 C H 95 H 26 H 115/55 L 95 10/02/21 06:00 38.2 C H 87 29 H 98/50 L 96 10/02/21 05:31 37.9 C H 85 26 H 103/51 L 10/02/21 05:30 38.2 C H 91 H 26 H 110/56 L 95 10/02/21 05:00 38.2 C H 92 H 28 H 105/52 L 93 10/02/21 04:30 38.2 C H 84 24 83/44 L 98 10/02/21 04:24 85 26 H 98 10/02/21 04:00 38.3 C H 94 H 21 117/58 L 93 10/02/21 03:30 38.2 C H 92 H 26 H 115/56 L 93 10/02/21 03:00 38.2 C H 90 26 H 108/53 L 93 10/02/21 02:30 38.1 C H 89 24 105/52 L 92 10/02/21 02:00 38.0 C H 89 24 105/53 L 92 10/02/21 01:30 37.9 C H 89 24 109/52 L 93 10/02/21 01:00 37.9 C H 91 H 29 H 103/51 L 92 10/02/21 00:30 37.7 C H 87 23 104/52 L 93 10/02/21 00:00 37.6 C H 90 20 108/53 L 92 10/01/21 23:30 37.4 C 88 20 105/53 L 86 L 10/01/21 23:00 37.3 C 90 24 102/51 L 88 L 10/01/21 22:30 37.2 C 95 H 21 107/54 L 86 L 10/01/21 22:05 97 H 28 H 92 10/01/21 22:00 37.2 C 100 H 21 110/54 L 84 L Laboratory Results 10/02/21 04:46 10/02/21 04:46 Coding Level of Care Code Critical Care 1st 30-74 mins Diagnoses Cardiac arrest I46.9 Heart failure I50.9 Pleural effusion J90 Aspiration pneumonia J69.0 ARDS (adult respiratory distress syndrome) J80 Pneumothorax J93.9 Acute encephalopathy G93.40 Time Spent (min) 40
[2021-10-02] MEDS ORDERED: INSULIN GLARGINE SOLOSTAR 100 UNITS/ML 3 ML PEN SC ONE ×2 (10:00)
[2021-10-02] MEDS: LACTULOSE SYRUP 20 GM/30 ML UDC PO SCH ×2 (10:16→13:44)
--- NOTE | 2021-10-02 12:39 | CT Scan Report ---
CT SCAN OF THE BRAIN WITHOUT IV CONTRAST CLINICAL HISTORY: Encephalopathy. COMPARISON STUDY: CT of the brain dated 09/29/2021. MRI of the brain dated 09/29/2021. TECHNIQUE: Unenhanced axial CT scan of the brain is performed from the vertex to the skull base. A do se lowering technique was utilized adhering to the principles of ALARA. The examination is significan tly motion compromised. The patient was scanned twice intervertebral improving image quality. CT DOSE: 1228.53 mGy.cm FINDINGS: An endotracheal tube is noted on the horseshoer tomogram. Brain parenchyma: There is extensive loss of koehler-white matter differentiation throughout the left oc cipital lobe, as well as extensive loss of koehler-white matter differentiation throughout the posterior right MCA/watershed territory. The appearance is consistent large subacute/evolving infarcts. There is significant edema with localized mass effect. No midline shift is identified. No hemorrhage is ayanna isela seen. Subacute ischemia also involves the left basal ganglia and the left thalamus. There are ag e-related involutional changes noting moderate subcortical and periventricular microangiopathic wilkerson ge. The cerebellum is not well assessed due to significant streak and motion artifact. No extra-axial fluid collection is seen. Ventricles, sulci, cisterns: Prominent secondary to involutional change. Intracranial vasculature: There is atherosclerotic calcification of the cavernous carotid arteries. Calvarium: Unremarkable. Sinuses and mastoids: Mucosal thickening and secretions are present within the sphenoid sinuses. The remaining paranasal sinuses are clear. There is a large left mastoid effusion. The right mastoid air cells are well pneumatized. Orbits: The bony orbits are grossly intact. There are bilateral ocular lens implants. Soft tissues: A 2.0 cm lesion is again seen in the right parotid gland. IMPRESSION: 1. There are large subacute/evolving bilateral territorial infarcts as detail above. 2. There is no hemorrhage or midline shift ACT 112: Negative or not required by law. Electronically signed by: Federico Ruiz M.D. 10/02/2021 12:38 PM
[2021-10-02] MEDS: ASPIRIN 81 MG ECTAB PO SCH ×2 (13:43→13:47)
[2021-10-02] MEDS ORDERED: Nursing to Pharmacy Communication SCH (14:00)
[2021-10-02] MEDS ORDERED: ACETAMINOPHEN SUSP 1000 MG/31.2 ML UDP NG PRN (14:14)
[2021-10-02] MEDS ORDERED: POLYETHYLENE (MIRALAX) 17 GM PACK NG PRN (14:30)
[2021-10-02] MEDS ORDERED: ALUMINUM/MAGNESIUM SUSP 30 ML UDC NG PRN (14:30)
[2021-10-02] MEDS ORDERED: INSULIN GLARGINE SOLOSTAR 100 UNITS/ML 3 ML PEN SC STA (15:02)
--- NOTE | 2021-10-02 15:02 | Hospitalist Progress Note ---
Date of Service October 02, 2021 Assessment & Plan (1) Ischemic stroke: Plan: bilateral subacute ischemic strokes with local edema, no midline shift family has elected to terminally extubate patient once all family members arrive (2) Cardiac arrest: Plan: Remains in the ICU with intubation ventilation after failing extubation on 09/26 for 4 hours was reintubated, sedation continues. Echocardiogram shows preserved ejection fraction and wall motion abnormality with right-sided elevated pressures likely consistent with her chronic smoking. Mild troponin leak could be from cardiac contusion from CPR or from shock did require pressors for period of time was unconscious s/p cardiac arrest with external cooling now reversed she was following commands after her arrest and on 09/26 when she failed extubation now extremely poor prognosis with strokes, will terminally extubate (3) Pneumonia: Plan: Right lower lobe pneumonia with loculated pleural effusion at the right base consistent possibly with aspiration or gram-negative pneumonia patient be continued on Zosyn therapy. 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, noted by Dr Alexander with watchful waiting continue Zosyn, Caspofungin is off plan for terminal extubation due to large bilateral strokes (4) COPD (chronic obstructive pulmonary disease): Plan: Medically treat acute exacerbation is at this time Umeclidinium inhaled via vent (5) Depression: (6) History of breast cancer: Plan: History of bilateral mastectomy in 2011 (7) Hypothyroidism: (8) T2DM (type 2 diabetes mellitus): Plan: Novolog SS (9) DVT prophylaxis: Plan: Heparin for DVT prevention Plan: very poor prognosis with bilateral large strokes, cardiac arrest, respiratory failure family has elected to terminally extubate once all family members are present Admission and Anticipated Discharge Date Admission Date: September 23, [address] head today, found to have large subacute bilateral strokes Dr. Swanson discussed with family, they plan to terminally extubate Review of Systems Review of Systems: Unobtainable due to cognitive status and Unobtainable due to endotracheal tube Physical Exam Physical Exam: General: well developed, well nourished, intubated and ventilated Neck: supple, trachea midline, normal thyroid Lungs: coarse sounds on left, clear on right, ventilated, right sided chest tube Heart: regular S1 and S2, no murmur, peripheral pulses normal, capillary refill normal, no edema Abdomen: soft, NT, ND, + BS, no hepatomegaly, normal to percussion Extremities: normal in appearance, no cyanosis, no petechiae Neuro: sedated Skin: warm, dry, no rash, normal turgor Psych: sedated Results & Data Results & Data ([facility]) Vital Signs (Past 12 Hours) Vital Signs Temp Pulse Resp BP Pulse Ox 10/02/21 12:30 37.8 C H 116 H 24 115/58 L 92 10/02/21 11:30 38.1 C H 119 H 23 118/64 91 10/02/21 11:19 99 H 27 H 90 10/02/21 10:30 38.0 C H 117 H 24 136/73 91 10/02/21 09:00 37.9 C H 118 H 25 H 133/79 91 10/02/21 08:00 38.0 C H 119 H 24 134/73 10/02/21 07:25 123 H 26 H 88 L 10/02/21 07:00 38.1 C H 99 H 24 164/78 H 94 10/02/21 06:30 38.0 C H 95 H 26 H 115/55 L 95 10/02/21 06:00 38.2 C H 87 29 H 98/50 L 96 10/02/21 05:31 37.9 C H 85 26 H 103/51 L 10/02/21 05:30 38.2 C H 91 H 26 H 110/56 L 95 10/02/21 05:00 38.2 C H 92 H 28 H 105/52 L 93 10/02/21 04:30 38.2 C H 84 24 83/44 L 98 10/02/21 04:24 85 26 H 98 10/02/21 04:00 38.3 C H 94 H 21 117/58 L 93 10/02/21 03:30 38.2 C H 92 H 26 H 115/56 L 93 10/02/21 03:00 38.2 C H 90 26 H 108/53 L 93 Laboratory Results Laboratory Results - last 24 hr 10/01/21 10/01/21 10/01/21 15:28 17:05 18:05 WBC RBC Hgb Hct MCV MCH MCHC RDW Std Deviation RDW Coeff of Vishal Plt Count MPV Immature Gran % (Auto) Neut % (Auto) Lymph % (Auto) [place] % (Auto) Eos % (Auto) Baso % (Auto) Neut # (Auto) Lymph # (Auto) [place] # (Auto) Eos # (Auto) Baso # (Auto) Immature Gran # (Auto) Platelet Estimate Sample Site POC pH POC pCO2 POC pO2 POC HCO3 POC Total CO2 POC Base Excess POC ABG O2 Sat Hector Test O2 Delivery Device POC O2 Rate Minute Ventilation Tidal Volume PEEP Sodium Potassium Chloride Carbon Dioxide Anion Gap BUN Creatinine Est Cr Clr Drug Dosing Est GFR ( Amer) Est GFR (Non-Af Amer) BUN/Creatinine Ratio Glucose POC Glucose 178 H 269 H 179 H POC Glucose (other) Calcium Phosphorus Magnesium Ammonia TSH SARS-CoV-2 RNA ([facility]) 10/01/21 10/01/21 10/01/21 20:00 21:11 22:05 WBC RBC Hgb Hct MCV MCH MCHC RDW Std Deviation RDW Coeff of Vishal Plt Count MPV Immature Gran % (Auto) Neut % (Auto) Lymph % (Auto) [place] % (Auto) Eos % (Auto) Baso % (Auto) Neut # (Auto) Lymph # (Auto) [place] # (Auto) Eos # (Auto) Baso # (Auto) Immature Gran # (Auto) Platelet Estimate Sample Site POC pH POC pCO2 POC pO2 POC HCO3 POC Total CO2 POC Base Excess POC ABG O2 Sat Hector Test O2 Delivery Device POC O2 Rate Minute Ventilation Tidal Volume PEEP Sodium Potassium Chloride Carbon Dioxide Anion Gap BUN Creatinine Est Cr Clr Drug Dosing Est GFR ( Amer) Est GFR (Non-Af Amer) BUN/Creatinine Ratio Glucose POC Glucose 128 H POC Glucose (other) 155 H 154 H Calcium Phosphorus Magnesium Ammonia TSH SARS-CoV-2 RNA ([facility]) 10/01/21 10/02/21 10/02/21 23:05 01:17 03:21 WBC RBC Hgb Hct MCV MCH MCHC RDW Std Deviation RDW Coeff of Vishal Plt Count MPV Immature Gran % (Auto) Neut % (Auto) Lymph % (Auto) [place] % (Auto) Eos % (Auto) Baso % (Auto) Neut # (Auto) Lymph # (Auto) [place] # (Auto) Eos # (Auto) Baso # (Auto) Immature Gran # (Auto) Platelet Estimate Sample Site POC pH POC pCO2 POC pO2 POC HCO3 POC Total CO2 POC Base Excess POC ABG O2 Sat Hector Test O2 Delivery Device POC O2 Rate Minute Ventilation Tidal Volume PEEP Sodium Potassium Chloride Carbon Dioxide Anion Gap BUN Creatinine Est Cr Clr Drug Dosing Est GFR ( Amer) Est GFR (Non-Af Amer) BUN/Creatinine Ratio Glucose POC Glucose POC Glucose (other) 154 H 149 H 139 H Calcium Phosphorus Magnesium Ammonia TSH SARS-CoV-2 RNA ([facility]) 10/02/21 10/02/21 10/02/21 04:34 04:41 04:46 WBC RBC Hgb Hct MCV MCH MCHC RDW Std Deviation RDW Coeff of Vishal Plt Count MPV Immature Gran % (Auto) Neut % (Auto) Lymph % (Auto) [place] % (Auto) Eos % (Auto) Baso % (Auto) Neut # (Auto) Lymph # (Auto) [place] # (Auto) Eos # (Auto) Baso # (Auto) Immature Gran # (Auto) Platelet Estimate Sample Site R Radial POC pH 7.34 L POC pCO2 53 H POC pO2 111 H POC HCO3 28 H POC Total CO2 30 POC Base Excess 2.0 H POC ABG O2 Sat 98.0 H Hector Test NA O2 Delivery Device Ventilator POC O2 Rate 24 Minute Ventilation 80 Tidal Volume 360 PEEP 8 Sodium 142 Potassium 4.4 Chloride 110 H Carbon Dioxide 28 Anion Gap 4 BUN 65 H Creatinine 1.22 H Est Cr Clr Drug Dosing 37.1 Est GFR ( Amer) 49.5 Est GFR (Non-Af Amer) 42.7 BUN/Creatinine Ratio 53.3 H Glucose 139 H POC Glucose POC Glucose (other) 144 H Calcium 7.9 L Phosphorus 2.6 D Magnesium 2.1 Ammonia TSH SARS-CoV-2 RNA ([facility]) 10/02/21 10/02/21 10/02/21 04:46 04:46 06:09 WBC 15.29 H RBC 3.20 L Hgb 9.7 L Hct 32.1 L MCV 100.3 H MCH 30.3 MCHC 30.2 L RDW Std Deviation 52.2 H RDW Coeff of Vishal 14.3 Plt Count 74 L MPV 11.9 H Immature Gran % (Auto) 1.2 Neut % (Auto) 85.0 Lymph % (Auto) 7.8 [place] % (Auto) 4.7 Eos % (Auto) 1.0 Baso % (Auto) 0.3 Neut # (Auto) 12.99 H Lymph # (Auto) 1.19 L [place] # (Auto) 0.72 H Eos # (Auto) 0.16 Baso # (Auto) 0.04 Immature Gran # (Auto) 0.19 H Platelet Estimate Decreased L Sample Site POC pH POC pCO2 POC pO2 POC HCO3 POC Total CO2 POC Base Excess POC ABG O2 Sat Hector Test O2 Delivery Device POC O2 Rate Minute Ventilation Tidal Volume PEEP Sodium Potassium Chloride Carbon Dioxide Anion Gap BUN Creatinine Est Cr Clr Drug Dosing Est GFR ( Amer) Est GFR (Non-Af Amer) BUN/Creatinine Ratio Glucose POC Glucose POC Glucose (other) 136 H Calcium Phosphorus Magnesium Ammonia 79.0 H TSH SARS-CoV-2 RNA ([facility]) 10/02/21 10/02/21 10/02/21 07:13 08:31 09:34 WBC RBC Hgb Hct MCV MCH MCHC RDW Std Deviation RDW Coeff of Vishal Plt Count MPV Immature Gran % (Auto) Neut % (Auto) Lymph % (Auto) [place] % (Auto) Eos % (Auto) Baso % (Auto) Neut # (Auto) Lymph # (Auto) [place] # (Auto) Eos # (Auto) Baso # (Auto) Immature Gran # (Auto) Platelet Estimate Sample Site POC pH POC pCO2 POC pO2 POC HCO3 POC Total CO2 POC Base Excess POC ABG O2 Sat Hector Test O2 Delivery Device POC O2 Rate Minute Ventilation Tidal Volume PEEP Sodium Potassium Chloride Carbon Dioxide Anion Gap BUN Creatinine Est Cr Clr Drug Dosing Est GFR ( Amer) Est GFR (Non-Af Amer) BUN/Creatinine Ratio Glucose POC Glucose 152 H 131 H POC Glucose (other) 140 H Calcium Phosphorus Magnesium Ammonia TSH SARS-CoV-2 RNA ([facility]) 10/02/21 10/02/21 10/02/21 10:35 11:42 12:28 WBC RBC Hgb Hct MCV MCH MCHC RDW Std Deviation RDW Coeff of Vishal Plt Count MPV Immature Gran % (Auto) Neut % (Auto) Lymph % (Auto) [place] % (Auto) Eos % (Auto) Baso % (Auto) Neut # (Auto) Lymph # (Auto) [place] # (Auto) Eos # (Auto) Baso # (Auto) Immature Gran # (Auto) Platelet Estimate Sample Site POC pH POC pCO2 POC pO2 POC HCO3 POC Total CO2 POC Base Excess POC ABG O2 Sat Hector Test O2 Delivery Device POC O2 Rate Minute Ventilation Tidal Volume PEEP Sodium Potassium Chloride Carbon Dioxide Anion Gap BUN Creatinine Est Cr Clr Drug Dosing Est GFR ( Amer) Est GFR (Non-Af Amer) BUN/Creatinine Ratio Glucose POC Glucose 154 H 174 H 180 H POC Glucose (other) Calcium Phosphorus Magnesium Ammonia TSH SARS-CoV-2 RNA ([facility]) 10/02/21 10/02/21 12:30 13:57 WBC RBC Hgb Hct MCV MCH MCHC RDW Std Deviation RDW Coeff of Vishal Plt Count MPV Immature Gran % (Auto) Neut % (Auto) Lymph % (Auto) [place] % (Auto) Eos % (Auto) Baso % (Auto) Neut # (Auto) Lymph # (Auto) [place] # (Auto) Eos # (Auto) Baso # (Auto) Immature Gran # (Auto) Platelet Estimate Sample Site POC pH POC pCO2 POC pO2 POC HCO3 POC Total CO2 POC Base Excess POC ABG O2 Sat Hector Test O2 Delivery Device POC O2 Rate Minute Ventilation Tidal Volume PEEP Sodium Potassium Chloride Carbon Dioxide Anion Gap BUN Creatinine Est Cr Clr Drug Dosing Est GFR ( Amer) Est GFR (Non-Af Amer) BUN/Creatinine Ratio Glucose POC Glucose POC Glucose (other) Calcium Phosphorus Magnesium Ammonia TSH 0.423 SARS-CoV-2 RNA ([facility]) Pending Diagnostic Findings CT SCAN OF THE BRAIN WITHOUT IV CONTRAST FINDINGS: An endotracheal tube is noted on the telecommunications consultant tomogram. Brain parenchyma: There is extensive loss of koehler-white matter differentiation throughout the left occipital lobe, as well as extensive loss of koehler-white matter differentiation throughout the posterior right MCA/watershed territory. The appearance is consistent large subacute/evolving infarcts. There is significant edema with localized mass effect. No midline shift is identified. No hemorrhage is clearly seen. Subacute ischemia also involves the left basal ganglia and the left thalamus. There are age-related involutional changes noting moderate subcortical and periventricular microangiopathic change. The cerebellum is not well assessed due to significant streak and motion artifact. No extra-axial fluid collection is seen. Ventricles, sulci, cisterns: Prominent secondary to involutional change. Intracranial vasculature: There is atherosclerotic calcification of the cave rnous carotid arteries. Calvarium: Unremarkable. Sinuses and mastoids: Mucosal thickening and secretions are present within the sphenoid sinuses. The remaining paranasal sinuses are clear. There is a large left mastoid effusion. The right mastoid air cells are well pneumatized. Orbits: The bony orbits are grossly intact. There are bilateral ocular lens implants. Soft tissues: A 2.0 cm lesion is again seen in the right parotid gland. IMPRESSION: 1. There are large subacute/evolving bilateral territorial infarcts as detail above. 2. There is no hemorrhage or midline shift Medications Administered Current Inpatient Medications Acetaminophen (Acetaminophen Susp 1000 Mg/31.2 Ml Udp) 1,000 mg NG Q6H PRN PRN Reason: pain -02/07 Stop: 11/01/21 14:13 Al Hydrox/Mg Hydrox/Simethicone (Aluminum/Magnesium Susp 30 Ml Udc) 30 ml NG Q6H PRN PRN Reason: Dyspepsia Stop: 10/23/21 15:25 Albuterol (Albuterol Hfa 8 Gm Inhaler) 1 puffs INH Q4R PRN PRN Reason: shortness of breath or wheezing Stop: 10/23/21 11:47 Albuterol (Albut/Ipratrop 3mg/0.5mg Neb 3 Ml Vial) 3 ml NEB Q6R PRN; Protocol PRN Reason: Shortness Of Breath Or Wheezing Stop: 10/25/21 04:52 Aspirin (Aspirin 81 Mg Chew) 81 mg NG QAM [facility] Stop: 11/02/21 08:59 Dextrose (Dextrose 50% 50 Ml Syringe) 25 - 50 ml IV UD PRN; Protocol PRN Reason: Hypoglycemia Protocol Stop: 10/23/21 11:47 Last Admin: 09/25/21 22:55 Dose: 50 ml Documented by: Docusate Sodium (Docusate Sodium Syrup 100 Mg/10 Ml Udc) 100 mg NG BID [facility] Stop: 10/30/21 10:44 Enoxaparin Sodium (Enoxaparin Inj 40 Mg/0.4 Ml Syr) 40 mg SQ QAM [facility] Stop: 10/27/21 14:59 Last Admin: 10/01/21 08:26 Dose: 40 mg Documented by: Fentanyl Citrate (Fentanyl Bolus From Bag) 50 mcg IV Q60M PRN PRN Reason: Pain or Agitation Stop: 10/10/21 13:45 Last Admin: 09/30/21 19:26 Dose: 50 mcg Documented by: Fluoxetine HCl (Fluoxetine Hcl 20 Mg/5 Ml 120ml Btl) 40 mg NG QAM [facility] Stop: 10/25/21 10:59 Glucagon (Glucagon For Inj 1 Mg Vial) 1 mg SQ UD PRN; Protocol PRN Reason: Hypoglycemia Protocol Stop: 10/23/21 11:47 Glucose (Glucose 10 Tabs/Tube) 4 - 8 tabs PO UD PRN; Protocol PRN Reason: Hypoglycemia Protocol Stop: 10/23/21 11:47 Glucose (Glucose 40% Gel 15 Gm Tube) 15 - 30 gm PO UD PRN; Protocol PRN Reason: Hypoglycemia Protocol Stop: 10/23/21 11:47 Piperacillin Sod/Tazobactam (Sod 3.375 gm/ Dextrose) 115 mls @ 28.75 mls/hr IV Q8H [facility]UNG; Protocol Stop: 10/05/21 23:59 Last Admin: 10/02/21 12:33 Dose: 28 mls/hr Documented by: Famotidine 20 mg/ Syringe 5 mls @ 2.5 mls/min IV QAM [facility]UNG Stop: 10/26/21 08:59 Last Admin: 10/02/21 08:44 Dose: 2.5 mls/min Documented by: Fentanyl Citrate (Fentanyl Citrate) 2,500 mcg in 250 mls @ 0 mls/hr IV .Q0M [facility]UNG; Protocol Stop: 10/10/21 13:59 Last Titration: 10/02/21 12:25 Dose: 0 mcg/hr, 0 mls/hr Documented by: Norepinephrine Bitartrate (Levophed/D5w) 8 mg in 508 mls @ 0 mls/hr IV .Q0M [facility]UNG; Protocol Stop: 10/26/21 18:44 Last Titration: 10/02/21 07:30 Dose: 0 mcg/kg/min, 0 mls/hr Documented by: Dexmedetomidine HCl 400 mcg/ (Sodium Chloride) 100 mls @ 0 mls/hr IV .Q0M NHUNG; Protocol Stop: 10/04/21 11:29 Last Titration: 10/02/21 12:25 Dose: 0 mcg/kg/hr, 0 mls/hr Documented by: Insulin Aspart (Insulin Aspart Per Unit) 0 units SC Q4 [facility]UNG Stop: 10/31/21 11:59 Last Admin: 10/02/21 12:32 Dose: Not Given Documented by: Lactulose (Lactulose Syrup 20 Gm/30 Ml Udc) 20 gm NG TID [facility] Stop: 11/01/21 08:59 Levothyroxine Sodium (Levothyroxine Sodium 50 Mcg Tablet) 50 mcg NG DAILYBB [facility] Stop: 10/23/21 12:29 Miscellaneous (Carbohydrates For Hypoglycemia ) 15 - 30 gm PO UD PRN PRN Reason: Hypoglycemia Protocol Stop: 10/23/21 11:47 Miscellaneous (Icu Electrolyte Replacement Protocol) 1 ea N/A BID@06,18 [facility]; Protocol Stop: 10/04/21 17:59 Last Admin: 10/02/21 06:36 Dose: 1 ea Documented by: Miscellaneous (Pending Order) 1 ea N/A QS [facility] Stop: 10/31/21 15:59 Last Admin: 10/01/21 16:37 Dose: Not Given Documented by: Miscellaneous Information (Piperacill/Tazobac Consult Active) 1 ea N/A UD PRN PRN Reason: Consult Stop: 10/23/21 07:45 Miscellaneous Information (Pharmacy Glycemic Mgmt Consult) 1 ea N/A UD PRN PRN Reason: Consult Stop: 10/31/21 10:50 Multi-Ingredient Cream (Artificial Tears Op Oint 3.5 Gm Tube) 1 appln OP Q2H PRN PRN Reason: eye protection Stop: 10/24/21 22:04 Multivitamins/Minerals (Multi Vit W/Minerals Liquid 15 Ml Udp) 15 ml NG QAM [facility] Stop: 10/28/21 08:59 Last Admin: 10/02/21 08:40 Dose: 15 ml Documented by: Nutritional Formula (Peptamen Intense Vhp 1.0 Scott 1,000 Ml Bag) 1,000 ml OG [facility]; Protocol Stop: 10/27/21 14:29 Last Admin: 10/02/21 01:21 Dose: 1,000 ml Documented by: Ondansetron HCl (Ondansetron Inj 2 Mg/Ml 2 Ml Vial) 4 mg IV Q6H PRN PRN Reason: Nausea Stop: 10/23/21 15:25 Polyethylene Glycol (Polyethylene (Miralax) 17 Gm Pack) 17 gm NG DAILY PRN PRN Reason: Constipation Stop: 10/23/21 15:25 Sennosides (Sennosides 8.8 Mg/5 Ml Udc) 17.6 mg PO BID [facility] Stop: 10/31/21 20:59 Last Admin: 10/02/21 08:40 Dose: 17.6 mg Documented by: Sterile Water (Tube Feeding Water Flush) 30 ml OG Q4H [facility] Stop: 10/27/21 14:29 Last Admin: 10/02/21 13:44 Dose: 30 ml Documented by: Umeclidinium Moore (Umeclidinium Moore 62.5mcg/Blister 7 Puffs/Inhaler) 1 puffs INH DAILY [facility] Stop: 10/23/21 12:29 Last Admin: 10/02/21 08:38 Dose: Not Given Documented by: PG Care Time/CCT Total # of Minutes Spent Total Time Spent with Patient: Total time spent is greater than 50% in coordination of care (as documented) at patient's floor/unit and/or counseling patient: Coding Level of Care Code 42644 Subseq Hosp Care Lvl 2 Diagnoses Cardiac arrest I46.9 Pneumonia J18.9 COPD (chronic obstructive pulmonary disease) J44.9 Depression F32.9 History of breast cancer Z85.3 Hypothyroidism E03.9 T2DM (type 2 diabetes mellitus) E11.9 DVT prophylaxis Z29.9 Ischemic stroke I63.9
[2021-10-02 17:07] VITALS: PULSE 120
[2021-10-02 17:17] VITALS: BP 109/62; TEMP 101.8; O2SAT 91
[2021-10-02] MEDS ORDERED: DOCUSATE SODIUM SYRUP 100 MG/10 ML UDC NG SCH (21:00)
[2021-10-02] MEDS ORDERED: LACTULOSE SYRUP 20 GM/30 ML UDC NG SCH (21:00)
[2021-10-03] MEDS ORDERED: LEVOTHYROXINE SODIUM 50 MCG TABLET NG SCH (06:30)
[2021-10-03] MEDS ORDERED: ASPIRIN 81 MG CHEW NG SCH (09:00)
[2021-10-03] MEDS ORDERED: FLUoxetine HCL 20 MG/5 ML 120ML BTL NG SCH (09:00)
== END 2021-10-02 22:00 | disposition expired | DRG 207 ==
LOC: ED 05:58 → SUATTDRO 08:20 → EDINP 08:20 → 2N 11:41 → 1E 09-24 19:16